=== PATIENT | male | born 1950 | race Caucasian/White ===

== ENCOUNTER 2023-08-15 10:05 | Outpatient (AMB) | payer MEDICARE, OTHER, SELFPAY ==
--- NOTE | 2023-08-15 10:06 | A.OFFPC_ITS ---
Vital Signs 08/15/23 10:07 Height 5 ft 7 in Weight 178 lb BMI 27.9 BP 120/68 Blood Pressure Location Lt brachial Position Sitting Pulse 76 Pulse Source Pulse Oximeter Pulse Oximetry (%) 97 Oxygen Delivery Method Room Air Intake Visit Reasons: Est care Intake Note: Pt here today for New patient visit. Pt states that he has been having R shoulder pain. Pt states that he has cortisone injection in that shoulder in the past. Allergies No Known Allergies Allergy (Verified 08/15/23 10:13) Medication List - Last Reconciled 08/15/23 by Batsheva Hamilton MD empagliflozin (Jardiance) 25 mg PO DAILY fluticasone propionate 50 mcg/actuation sprays intranasal glipizide 10 mg PO BID lisinopril 40 mg PO DAILY metformin 1,000 mg PO BID simvastatin 40 mg PO BEDTIME tirzepatide (Mounjaro) mg subcut Tobacco use date assessed: 08/15/23 Fall risk assessment: No Falls in past year Last assessed Fall Risk: 08/15/23 Dental Screening Dental Screen Date: 08/15/23 Did you have a dental visit in the last 12 months?: No Did you have a dental problem in the last 6 months where you did not have access to dental care?: No Was dental information given to patient?: Patient declined HPI Est care HPI Details Pt presents for [employer] visit transfer from [facility]. . PMH :DM 2, HTN, hyperlipid.Pt c/o R shoulder pain for 2 weeks, no injury, worse when using it, no weakness. PFSH Family History Father Diabetes Mother Diabetes Brother Diabetes Sister Diabetes Social History Housing: House Patient Tobacco Use Status: Former Tobacco user (50 years ago) e-Cigarette/Vaping Use: Never Used Current occupational status: retired Cognitive needs: No Hearing needs: No Vision needs: Yes Questionnaire PHQ-9 Over the last 2 weeks, how often have you been bothered by any of the following problems? 1. Little interest or pleasure in doing things: not at all 2. Feeling down, depressed, or hopeless: not at all 3. Trouble falling or staying asleep, or sleeping too much: not at all 4. Feeling tired or having little energy: not at all 5. Poor appetite or overeating: not at all 6. Feeling bad about yourself - or that you are a failure or have let yourself or your family down: not at all 7. Trouble concentrating on things, such as reading the newspaper or watching television: not at all 8. Moving or speaking so slowly that other people could have noticed. Or the opposite - being so fidgety or restless that you have been moving around a lot more than usual: not at all 9. Thoughts that you would be better off or of hurting yourself in some way: not at all Total score: 0 Depression Screening Interpretation: Negative Depression Screening Done: Yes Source: Developed by Drs. Júnior Xie, Sirena Pereyra, Omkar Howard and colleagues, with an educational celine from [employer]. Thrive Questionnaire Date Thrive assessed: 08/15/23 I am a: Patient What is your living situation today?: I have a steady place to live Within the past 12 months, did the food you bought not last and you didn't have the money to get more?: Never true Within the past 12 months, did you worry whether your food would run out before you got money to buy more?: Never true Do you have trouble paying for medicines?: No Do you have trouble getting transportation to medical appointments?: No Do you have trouble paying your heating and electricity bill?: No Do you have trouble taking care of your child, family member or friend?: No Do you have trouble with day-to-day activities such as bathing, preparing meals, shopping, managing finances, etc.?: No Are you currently unemployed and looking for a job?: No Are you interested in more education?: No Please select the resources that you would like help with: None Currently or been in a relationship where the following occur: no concerns reported ALLY-7 AMB Questionnaire ALLY-7 Date ALLY - 7 assessed: 08/15/23 Feeling nervous, anxious, or on edge: 0 = Not at all Not being able to stop or control worryin = Not at all Worrying too much about different things: 0 = Not at all Trouble relaxin = Not at all Being so restless that it is hard to sit still: 0 = Not at all Becoming easily annoyed or irritable: 0 = Not at all Feeling afraid as if something awful might happen: 0 = Not at all Total ALLY-7 score (0-4 normal; 5-9 mild; 10-14 moderate; 15-21 severe): 0 Source: Developed by Drs. Júnior Xie, Sirena Pereyra, Omkar Howard and colleagues, with an educational celine from [employer]. Review of Systems Const All systems reviewed & are unremarkable except as noted in HPI and below Reports no additional complaints Eyes Reports no additional complaints ENT Reports no additional complaints Card Reports no additional complaints Resp Reports no additional complaints GI Reports no additional complaints Reports no additional complaints Physical exam (Primary Care) Vital Signs: Last Vital Signs Pulse 76 08/15/23 10:07 BP 120/68 08/15/23 10:07 Pulse Ox 97 08/15/23 10:07 Oxygen Delivery Method Room Air 08/15/23 10:07 BMI result Body Mass Index 27.9 Tobacco/Smoking Status: Tobacco use Status Tobacco use date assessed 08/15/23 08/15/23 10:22 Patient Tobacco Use Status Former Tobacco user (50 08/15/23 10:22 years ago) e-Cigarette/Vaping Use Never Used 08/15/23 10:22 PHQ-9: PHQ-9 Score PHQ-9: Total score 0 08/15/23 10:22 Depression Screening Interpretation: Negative Thrive Assessment: Date of Thrive Assessment Date Thrive assessed 08/15/23 08/15/23 10:22 Currently or been in a relationship where the following occur: no concerns reported Const General: no acute distress HENMT Head: Yes normal to inspection Face and sinus: Yes normal facial exam Throat: Yes posterior oropharynx normal Neck Neck: Yes no lymphadenopathy and Yes supple Resp Effort & Inspection: normal respiratory effort Auscultation: clear to auscultation bilaterally Cardio Rhythm: regular rhythm Heart sounds: S1 normal heart sound present and S2 normal heart sound present GI Inspection: Yes normal to inspection Palpation (GI): Soft to palpation Extrem Other: DROM of R shoulder, anterior tenderness, Assessment and Plan Assessment & Plan (1) Shoulder pain, right: Code(s): M25.511 - Pain in right shoulder Plan: check XR, PT, Prednisone taper (2) Annual physical exam: Code(s): Z00.00 - Encounter for general adult medical examination without abnormal findings (3) DM type 2 (diabetes mellitus, type 2): Comment: > 10 years, f/u [facility] Code(s): E11.9 - Type 2 diabetes mellitus without complications Plan: check labs, obtain records, f/u 1 month (4) History of prostate surgery: Comment: >10 years Code(s): Z98.890 - Other specified postprocedural states (5) Hx of colonoscopy: Code(s): Z98.890 - Other specified postprocedural states (6) Hyperlipemia: Code(s): E78.5 - Hyperlipidemia, unspecified Plan: cont statin (7) HTN (hypertension): Code(s): I10 - Essential (primary) hypertension Plan: cont meds Orders: Orders Comprehensive [place]. Panel Fast Today E11.9 - Type 2 diabetes mellitus without complications, E78.5 - Hyperlipidemia, unspecified, I10 - Essential (primary) h ypertension, Z00.00 - Encounter for general adult medical examination without abnormal findings Complete Blood Count Auto Diff Today E11.9 - Type 2 diabetes mellitus without complications, E78.5 - Hyperlipidemia, unspecified, I10 - Essential (primary) hypertension, Z00.00 - Encounter for general adult medical examination without abnormal findings Microalbumin, Random (w Creat) Today E11.9 - Type 2 diabetes mellitus without complications, E78.5 - Hyperlipidemia, unspecified, I10 - Essential (primary) hypertension, Z00.00 - Encounter for general adult medical examination without abnormal findings PT Evaluation and Treatment Today M25.511 - Pain in right shoulder Hemoglobin A1c Today E11.9 - Type 2 diabetes mellitus without complications, E78.5 - Hyperlipidemia, unspecified, I10 - Essential (primary) hypertension, Z00.00 - Encounter for general adult medical examination without abnormal findings Lipid Panel Today E11.9 - Type 2 diabetes mellitus without complications, E78.5 - Hyperlipidemia, unspecified, I10 - Essential (primary) hypertension, Z00.00 - Encounter for general adult medical examination without abnormal findings PSA,Total (Free>4and<10) Today E11.9 - Type 2 diabetes mellitus without complications, E78.5 - Hyperlipidemia, unspecified, I10 - Essential (primary) hypertension, Z00.00 - Encounter for general adult medical examination without abnormal findings XR shoulder RT min 2V Today M25.511 - Pain in right shoulder Medications: New simvastatin 40 mg PO BEDTIME 90 tabs 3RF lisinopril 40 mg PO DAILY 90 tabs 3RF prednisone 4 TABL QD X 3 days, then 3 tabl qd x3 days, then 2 tabl qd x 3 days, then 1 tabl qd x3 days 10 mg PO DAILY 30 tabs 0RF Coding Level of Care Code New Pt Level 4 (36375) Diagnoses Shoulder pain, right M25.511 Annual physical exam Z00.00 DM type 2 (diabetes mellitus, type 2) E11.9 History of prostate surgery Z98.890 Hx of colonoscopy Z98.890 Hyperlipemia E78.5 HTN (hypertension) I10
[2023-08-15 10:07] VITALS: BP 120/68; PULSE 76; O2SAT 97; BMI 27.9
== END 2023-08-15 11:24 | disposition home or self-care (01) ==
LOC: HO.HMGC 10:05
PROVIDERS: PCP Internal Medicine; Visit Provider Internal Medicine
DX: M25.511 Pain in right shoulder (principal); Z00.00 Encounter for general adult medical examination without abnormal findings; E11.9 Type 2 diabetes mellitus without complications; Z98.890 Other specified postprocedural states; E78.5 Hyperlipidemia, unspecified; I10 Essential (primary) hypertension
CPT/HCPCS: 99204

== ENCOUNTER 2023-09-26 09:46 | Outpatient (REF) | payer MEDICARE, OTHER, SELFPAY ==
[2023-09-26 11:41] LABS: MANUAL DIFF FLAG NO
[2023-09-26 12:16] LABS: Estimated Average Glucose 246 mg/dL; Hemoglobin A1c % 10.2 % (<6.0)
[2023-09-26 12:35] LABS: Alanine Aminotransferase 18 U/L (0-40); Albumin Level 4.5 g/dL (3.5-5.0); Alkaline Phosphatase 68 U/L (39-117); Anion Gap 13 (12-20); Aspartate Amino Transferase 16 U/L (5-37); Bilirubin Total 0.8 mg/dL (0.0-1.0); Blood Urea Nitrogen 23 mg/dL (9-16); Calcium 10.1 mg/dL (8.4-10.2); Carbon Dioxide 25 mmol/L (22-29); Chloride 107 mmol/L (96-108); Cholesterol 204 mg/dL (<200); Estimated Glomerular Filt Rate > 60; Glucose Fasting 175 mg/dL (60-99); HDL Cholesterol 50 mg/dL (>40); LDL Cholesterol Calculated 96 mg/dL (<100); Potassium 4.2 mmol/L (3.3-5.1); Sodium 141 mmol/L (135-145); Total Protein 7.5 g/dL (6.5-8.0); Triglycerides 291 mg/dL (<150)
[2023-09-26 12:49] LABS: Basophils Absolute Auto 0.1 X10*3/uL (0.0-0.2); Basophils Percent Auto 1.4 % (0-2); Eosinophils Absolute Auto 0.3 X10*3/uL (0.0-0.4); Eosinophils Percent Auto 4.7 % (0-4); Hematocrit 45.7 % (42.0-52.0); Hemoglobin 15.1 g/dl (14.0-18.0); Imm Gran Abs Auto 0.04 X10*3/uL (0.00-0.03); Imm Gran Pct Auto 0.6 % (0.0-0.4); Lymphocytes Absolute Auto 2.6 X10*3/uL (1.2-4.9); Lymphocytes Percent Auto 39.4 % (20-40); Mean Corpuscular Hemoglobin 31.5 pg (27.0-33.0); Mean Corpuscular Volume 95.2 fL (80.0-98.0); Mean Platelet Volume 11.3 fL (9.4-12.4); Monocytes Absolute Auto 0.5 X10*3/uL (0.1-1.2); Monocytes Percent Auto 7.4 % (2-11); Neutrophils Absolute Auto 3.1 x10*3/uL (2.0-8.3); Neutrophils Percent Auto 46.5 % (45-73); Platelet Count 296 X10*3/uL (160-400); White Blood Count 6.6 X10*3/uL (4.8-10.8)
[2023-09-26 13:05] LABS: PSA,Total (Free>4and<10) 0.13 ng/mL (0.00-4.00)
[2023-09-26 16:14] LABS: Creatinine Urine 48.64 mg/dL; Microalbum/Creatinine Ratio Ur 12.3 ug/mg cr (<30)
== END 2023-09-26 09:47 | disposition home or self-care (01) ==
LOC: HO.HMGCLDS 09:46
PROVIDERS: PCP Internal Medicine; Visit Provider Internal Medicine
DX: Z00.00 Encounter for general adult medical examination without abnormal findings (principal); Z12.5 Encounter for screening for malignant neoplasm of prostate; E11.9 Type 2 diabetes mellitus without complications; E78.5 Hyperlipidemia, unspecified; I10 Essential (primary) hypertension
CPT/HCPCS: 36415; 80053; 80061; 82043; 82570; 83036; 84153; 85025

== ENCOUNTER 2023-09-27 12:36 | Outpatient (AMB) | payer MEDICARE, OTHER, SELFPAY ==
[2023-09-27 12:37] VITALS: BP 116/64; PULSE 78; O2SAT 98; BMI 28.2
--- NOTE | 2023-09-27 12:37 | A.OFFPC_ITS ---
Vital Signs 09/27/23 12:37 Height 5 ft 7 in Weight 180 lb BMI 28.2 BP 116/64 Blood Pressure Location Lt brachial Position Sitting Pulse 78 Pulse Source Pulse Oximeter Pulse Oximetry (%) 98 Oxygen Delivery Method Room Air Intake Visit Reasons: 1 month follow up on labs Intake Note: Pt is here today for 1 month follow up visit. Pt states that he still has pain in hie R shoulder. Allergies No Known Allergies Allergy (Verified 09/27/23 12:40) Medication List - Last Reconciled 09/27/23 by Batshvea Hamilton MD empagliflozin (Jardiance) 25 mg PO DAILY fluticasone propionate 50 mcg/actuation sprays intranasal glipizide 10 mg PO BID Lantus Solostar U-100 Insulin (insulin glargine) 10 units (0.1 mL) subcut QPM NS lisinopril 40 mg PO DAILY metformin 1,000 mg PO BID simvastatin 40 mg PO BEDTIME tirzepatide (Mounjaro) 10 mg (0.5 mL) subcut QWEEK Tobacco use date assessed: 09/27/23 Fall risk assessment: No Falls in past year Last assessed Fall Risk: 09/27/23 Dental Screening Dental Screen Date: 09/27/23 Did you have a dental visit in the last 12 months?: No Did you have a dental problem in the last 6 months where you did not have access to dental care?: No Was dental information given to patient?: Patient declined HPI 1 month follow up on labs HPI Details Patient presents for the follow-up of type 2 diabetes hypertension and hyperlipidemia. He reports blood glucose readings between 170 to 300s. [facility] Family History Father Diabetes Mother Diabetes Brother Diabetes Sister Diabetes Social History Housing: House Patient Tobacco Use Status: Former Tobacco user (50 years ago) e-Cigarette/Vaping Use: Never Used Current occupational status: retired Cognitive needs: No Hearing needs: No Vision needs: Yes Questionnaire PHQ-9 Over the last 2 weeks, how often have you been bothered by any of the following problems? 1. Little interest or pleasure in doing things: not at all 2. Feeling down, depressed, or hopeless: not at all 3. Trouble falling or staying asleep, or sleeping too much: not at all 4. Feeling tired or having little energy: not at all 5. Poor appetite or overeating: not at all 6. Feeling bad about yourself - or that you are a failure or have let yourself or your family down: not at all 7. Trouble concentrating on things, such as reading the newspaper or watching television: not at all 8. Moving or speaking so slowly that other people could have noticed. Or the opposite - being so fidgety or restless that you have been moving around a lot more than usual: not at all 9. Thoughts that you would be better off or of hurting yourself in some way: not at all Total score: 0 Depression Screening Interpretation: Negative Depression Screening Done: Yes Source: Developed by Drs. Júnior Xie, Sirena Pereyra, Omkar Howard and colleagues, with an educational celine from [employer]. Thrive Questionnaire Date Thrive assessed: 09/27/23 I am a: Patient What is your living situation today?: I have a steady place to live Within the past 12 months, did the food you bought not last and you didn't have the money to get more?: Never true Within the past 12 months, did you worry whether your food would run out before you got money to buy more?: Never true Do you have trouble paying for medicines?: No Do you have trouble getting transportation to medical appointments?: No Do you have trouble paying your heating and electricity bill?: No Do you have trouble taking care of your child, family member or friend?: No Do you have trouble with day-to-day activities such as bathing, preparing meals, shopping, managing finances, etc.?: No Are you currently unemployed and looking for a job?: No Are you interested in more education?: No Please select the resources that you would like help with: None Currently or been in a relationship where the following occur: no concerns reported THRIVE Score: 0 AUDIT C Alcohol Use Questionnaire (AUDIT-C) 1. How often do you have a drink containing alcohol?: Never 3. How often do you have six or more drinks on one occasion?: Never Total Score: 0 ALLY-7 AMB Questionnaire ALLY-7 Date ALLY - 7 assessed: 08/15/23 Source: Developed by Drs. Júnior Xie, Sirena Pereyra, Omkar Howard and colleagues, with an educational celine from [employer]. Review of Systems Const All systems reviewed & are unremarkable except as noted in HPI and below Reports no additional complaints Eyes Reports no additional complaints ENT Reports no additional complaints Card Reports no additional complaints Resp Reports no additional complaints GI Reports no additional complaints Reports no additional complaints Physical exam (Primary Care) Vital Signs: Last Vital Signs Pulse 78 09/27/23 12:37 BP 116/64 09/27/23 12:37 Pulse Ox 98 09/27/23 12:37 Oxygen Delivery Method Room Air 09/27/23 12:37 BMI result Body Mass Index 28.2 Tobacco/Smoking Status: Tobacco use Status Tobacco use date assessed 09/27/23 09/27/23 12:43 Patient Tobacco Use Status Former Tobacco user (50 09/27/23 12:43 years ago) e-Cigarette/Vaping Use Never Used 09/27/23 12:37 Depression Screening Interpretation: Negative Thrive Assessment: Date of Thrive Assessment Date Thrive assessed 08/15/23 09/27/23 12:37 Currently or been in a relationship where the following occur: no concerns reported Const General: no acute distress HENMT Head: Yes normal to inspection Face and sinus: Yes normal facial exam Eyes General: appearance normal, both eyes and all related structures Resp Effort & Inspection: normal respiratory effort Auscultation: clear to auscultation bilaterally Cardio Rhythm: regular rhythm Heart sounds: S1 normal heart sound present and S2 normal heart sound present GI Inspection: Yes normal to inspection Palpation (GI): Soft to palpation Assessment and Plan Assessment & Plan (1) DM type 2 (diabetes mellitus, type 2): Comment: > 10 years, f/u [facility] Code(s): E11.9 - Type 2 diabetes mellitus without complications Plan: A1C is 10.2, ADA diet increase physical activity discussed with the patient Lantus 10 units q.h.s. will be added and Mounjaro will be increased to 10 mg weekly. Patient will follow-up in 1 month with blood glucose readings for the adjustment of insulin dose (2) HTN (hypertension): Code(s): I10 - Essential (primary) hypertension Plan: cont meds (3) Hyperlipemia: Code(s): E78.5 - Hyperlipidemia, unspecified Plan: cont statin Medications: New BD Ultra-Fine Mini Pen Needle (pen needle, diabetic) 1 QD 100 ea 1RF NS tirzepatide (Mounjaro) 10 mg (0.5 mL) subcut QWEEK 6 mL 3RF Lantus Solostar U-100 Insulin (insulin glargine) 10 units (0.1 mL) subcut QPM 15 mL 0RF NS meloxicam 15 mg PO DAILY 10 tabs 0RF clonidine HCl 0.1 mg PO BID 180 tabs 0RF Coding Level of Care Code Est Pt Level 4 (54267) Diagnoses DM type 2 (diabetes mellitus, type 2) E11.9 HTN (hypertension) I10 Hyperlipemia E78.5
== END 2023-09-27 13:21 | disposition home or self-care (01) ==
PROVIDERS: PCP Internal Medicine; Visit Provider Internal Medicine
DX: E11.9 Type 2 diabetes mellitus without complications (principal); I10 Essential (primary) hypertension; E78.5 Hyperlipidemia, unspecified
CPT/HCPCS: 99214

== ENCOUNTER 2023-11-15 12:02 | Outpatient (AMB) | payer MEDICARE, OTHER, SELFPAY ==
[2023-11-15 12:30] VITALS: BP 120/72; PULSE 68; O2SAT 96; BMI 27.9
--- NOTE | 2023-11-15 12:30 | A.OFFPC_ITS ---
Vital Signs 11/15/23 12:30 Height 5 ft 7 in Weight 178 lb BMI 27.9 BP 120/72 Blood Pressure Location Lt brachial Position Sitting Pulse 68 Pulse Source Pulse Oximeter Pulse Oximetry (%) 96 Oxygen Delivery Method Room Air Intake Visit Reasons: 1 month follow up/PTS wanted this date Allergies No Known Allergies Allergy (Verified 11/15/23 12:31) Medication List - Last Reconciled 11/15/23 by Batsheva Hamilton MD BD Ultra-Fine Mini Pen Needle (pen needle, diabetic) 1 QD NS clonidine HCl 0.1 mg PO BID diabetic supplies, miscellan. DIABETIC SHOES empagliflozin (Jardiance) 25 mg PO DAILY fluticasone propionate 50 mcg/actuation sprays intranasal glipizide 10 mg PO BID Lantus Solostar U-100 Insulin (insulin glargine) 10 units (0.1 mL) subcut QPM NS lisinopril 40 mg PO DAILY metformin 1,000 mg PO BID simvastatin 40 mg PO BEDTIME tirzepatide (Mounjaro) 10 mg (0.5 mL) subcut QWEEK Tobacco use date assessed: 09/27/23 HPI 1 month follow up/PTS wanted this date HPI Details Patient presents for the follow-up of type 2 diabetes improved since patient started Lantus. He reports fasting blood glucose between 120-150 but high up to 200 after meals. Patient has not been compliant with ADA diet. Hypertension and hyperlipidemia stable on current medications. PATIENT COMPLAINS OF PERSISTENT RIGHT SHOULDER PAIN AND DECREASED RANGE OF MOTION DESPITE PHYSICAL THERAPY. PFSH Family History Father Diabetes Mother Diabetes Brother Diabetes Sister Diabetes Social History Housing: House Patient Tobacco Use Status: Former Tobacco user (50 years ago) e-Cigarette/Vaping Use: Never Used Current occupational status: retired Cognitive needs: No Hearing needs: No Vision needs: Yes Questionnaire Thrive Questionnaire Date Thrive assessed: 09/27/23 ALLY-7 AMB Questionnaire ALLY-7 Date ALLY - 7 assessed: 08/15/23 Source: Developed by Drs. Júnior Xie, Sirena Pereyra, Omkar Howard and colleagues, with an educational celine from [employer]. Review of Systems Const All systems reviewed & are unremarkable except as noted in HPI and below Reports no additional complaints Eyes Reports no additional complaints ENT Reports no additional complaints Card Reports no additional complaints Resp Reports no additional complaints GI Reports no additional complaints Reports no additional complaints Physical exam (Primary Care) Vital Signs: Last Vital Signs Pulse 68 11/15/23 12:30 BP 120/72 11/15/23 12:30 Pulse Ox 96 11/15/23 12:30 Oxygen Delivery Method Room Air 11/15/23 12:30 BMI result Body Mass Index 27.9 Tobacco/Smoking Status: Tobacco use Status Tobacco use date assessed 09/27/23 11/15/23 12:30 Patient Tobacco Use Status Former Tobacco user (50 11/15/23 12:30 years ago) e-Cigarette/Vaping Use Never Used 11/15/23 12:30 Thrive Assessment: Date of Thrive Assessment Date Thrive assessed 09/27/23 11/15/23 12:30 Const General: no acute distress HENMT Mouth: Normal oral and palatal mucosa present Neck Neck: Yes supple Resp Effort & Inspection: normal respiratory effort Auscultation: clear to auscultation bilaterally Cardio Rhythm: regular rhythm Heart sounds: S1 normal heart sound present and S2 normal heart sound present GI Inspection: Yes normal to inspection Palpation (GI): Soft to palpation Percussion: Yes normal to percussion Extrem Other: Significantly decreased range of motion right shoulder Assessment and Plan Assessment & Plan (1) Shoulder pain, right: Code(s): M25.511 - Pain in right shoulder Plan: For persistent severe pain and decreased range of motion right shoulder obtain x-ray and MRI to evaluate for rotator cuff tear. Patient will continue physical therapy (2) DM type 2 (diabetes mellitus, type 2): Comment: > 10 years, f/u [facility] Code(s): E11.9 - Type 2 diabetes mellitus without complications Plan: Increase insulin to 14 units continue the rest of the medications. ADA diet increase physical activity weight loss discussed with the patient follow-up in 1 month with a fasting labs before (3) Hyperlipemia: Code(s): E78.5 - Hyperlipidemia, unspecified Plan: Continue statin (4) HTN (hypertension): Code(s): I10 - Essential (primary) hypertension Plan: Continue current medications Orders: Orders Hemoglobin A1c 1 Month E11.9 - Type 2 diabetes mellitus without complications, E78.5 - Hyperlipidemia, unspecified, I10 - Essential (primary) hypertension Lipid Panel 1 Month E11.9 - Type 2 diabetes mellitus without complications, E78.5 - Hyperlipidemia, unspecified, I10 - Essential (primary) hypertension MR shoulder RT wo/w con Today M12.811 - Other specific arthropathies, not elsewhere classified, right shoulder XR shoulder RT min 2V Today M25.511 - Pain in right shoulder Comprehensive [place]. Panel Fast 1 Month E11.9 - Type 2 diabetes mellitus without complications, E78.5 - Hyperlipidemia, unspecified, I10 - Essential (primary) hypertension Microalbumin, Random (w Creat) 1 Month E11.9 - Type 2 diabetes mellitus without complications, E78.5 - Hyperlipidemia, unspecified, I10 - Essential (primary) hypertension Complete Blood Count Auto Diff 1 Month E11.9 - Type 2 diabetes mellitus without complications, E78.5 - Hyperlipidemia, unspecified, I10 - Essential (primary) hypertension Medications: New diabetic supplies, miscellan. DIABETIC SHOES 2 ea 0RF E11.9 - Type 2 diabetes mellitus without complications Changed From Lantus Solostar U-100 Insulin (insulin glargine) 10 units (0.1 mL) subcut QPM 15 mL 0RF NS To Lantus Solostar U-100 Insulin (insulin glargine) 14 units (0.14 mL) subcut QPM 15 mL 1RF NS Coding Level of Care Code Est Pt Level 4 (86859) Diagnoses Shoulder pain, right M25.511 DM type 2 (diabetes mellitus, type 2) E11.9 Hyperlipemia E78.5 HTN (hypertension) I10
== END 2023-11-15 14:01 | disposition home or self-care (01) ==
PROVIDERS: PCP Internal Medicine; Visit Provider Internal Medicine
DX: M25.511 Pain in right shoulder (principal); E11.9 Type 2 diabetes mellitus without complications; E78.5 Hyperlipidemia, unspecified; I10 Essential (primary) hypertension
CPT/HCPCS: 99214

== ENCOUNTER 2023-11-15 13:55 | Outpatient (REF) | payer MEDICARE, OTHER, SELFPAY ==
--- NOTE | ~2023-11-15 | XR_ITS ---
EXAMINATION: XR SHOULDER, RIGHT CLINICAL INFORMATION: Pain in right shoulder COMPARISON: None available. TECHNIQUE: AP external rotation, Grashey, scapular Y, and axillary views of the right shoulder. FINDINGS: There is a small bony defect in the greater tuberosity of the humeral head. No acute fracture. No dislocation. 2 surgical tacks are seen within the humeral head consistent with rotator cuff repair. There is mild degenerative change of the glenohumeral joint. The acromioclavicular joint is normal. Tiny calcific density seen superior to the humeral head. XR/XR shoulder RT min 2V IMPRESSION: 1. Mild degenerative change of the glenohumeral joint. 2. Tiny calcific density superior to the humeral head may represent calcific tendinitis. 3. Prior repair of rotator cuff tear.
== END 2023-11-15 13:56 | disposition home or self-care (01) ==
LOC: HO.HMGCX 13:55
PROVIDERS: PCP Internal Medicine; Visit Provider Internal Medicine
DX: M25.511 Pain in right shoulder (principal)
CPT/HCPCS: 73030

== ENCOUNTER 2023-12-19 09:55 | Outpatient (REF) | payer MEDICARE, OTHER, SELFPAY ==
[2023-12-19 13:37] LABS: MANUAL DIFF FLAG NO
[2023-12-19 13:48] LABS: Basophils Absolute Auto 0.1 X10*3/uL (0.0-0.2); Eosinophils Absolute Auto 0.3 X10*3/uL (0.0-0.4); Eosinophils Percent Auto 3.5 % (0-4); Hematocrit 44.8 % (42.0-52.0); Hemoglobin 14.8 g/dl (14.0-18.0); Imm Gran Abs Auto 0.04 X10*3/uL (0.00-0.03); Imm Gran Pct Auto 0.5 % (0.0-0.4); Lymphocytes Absolute Auto 3.1 X10*3/uL (1.2-4.9); Lymphocytes Percent Auto 39.6 % (20-40); Mean Corpuscular Hemoglobin 30.9 pg (27.0-33.0); Mean Corpuscular Volume 93.5 fL (80.0-98.0); Mean Platelet Volume 11.2 fL (9.4-12.4); Monocytes Absolute Auto 0.6 X10*3/uL (0.1-1.2); Monocytes Percent Auto 8.2 % (2-11); Neutrophils Absolute Auto 3.7 x10*3/uL (2.0-8.3); Neutrophils Percent Auto 47.2 % (45-73); Platelet Count 294 X10*3/uL (160-400); Red Blood Count 4.79 X10*6/uL (4.60-5.80); Red Cell Distribution Width 12.4 % (11.0-16.0); White Blood Count 7.8 X10*3/uL (4.8-10.8)
[2023-12-19 14:02] LABS: Estimated Average Glucose 189 mg/dL; Hemoglobin A1c % 8.2 % (<6.0)
[2023-12-19 14:06] LABS: Alanine Aminotransferase 14 U/L (0-40); Albumin Level 4.4 g/dL (3.5-5.0); Alkaline Phosphatase 76 U/L (39-117); Anion Gap 15 (12-20); Aspartate Amino Transferase 13 U/L (5-37); Blood Urea Nitrogen 21 mg/dL (9-16); Calcium 11.2 mg/dL (8.4-10.2); Carbon Dioxide 23 mmol/L (22-29); Chloride 106 mmol/L (96-108); Cholesterol 129 mg/dL (<200); Estimated Glomerular Filt Rate > 60; Glucose Fasting 162 mg/dL (60-99); HDL Cholesterol 42 mg/dL (>40); LDL Cholesterol Calculated 64 mg/dL (<100); Potassium 4.5 mmol/L (3.3-5.1); Sodium 139 mmol/L (135-145); Total Protein 7.5 g/dL (6.5-8.0); Triglycerides 117 mg/dL (<150)
[2023-12-19 14:23] LABS: Microalbum/Creatinine Ratio Ur 12.6 ug/mg cr (<30)
== END 2023-12-19 09:56 | disposition home or self-care (01) ==
LOC: HO.HMGCLDS 09:55
PROVIDERS: PCP Internal Medicine; Visit Provider Internal Medicine
DX: E11.9 Type 2 diabetes mellitus without complications (principal); I10 Essential (primary) hypertension; E78.5 Hyperlipidemia, unspecified
CPT/HCPCS: 36415; 80053; 80061; 82043; 82570; 83036; 85025

== ENCOUNTER 2023-12-23 10:04 | Outpatient (AMB) | payer MEDICARE, OTHER, SELFPAY ==
[2023-12-23 10:22] VITALS: BP 110/64; PULSE 85; O2SAT 96; BMI 28.0
--- NOTE | 2023-12-23 10:22 | MHC.PC.OV ---
Vital Signs 12/23/23 10:22 Height 5 ft 7 in Weight 179 lb BMI 28.0 BP 110/64 Blood Pressure Location Lt brachial Position Sitting Pulse 85 Pulse Source Pulse Oximeter Pulse Oximetry (%) 96 Oxygen Delivery Method Room Air Intake Visit Reasons: 1M F/U Intake Note: Pt is here today for his 1 mo. f/u Allergies No Known Allergies Allergy (Verified 12/23/23 10:22) Medication List - Last Reconciled 12/23/23 by Batsheva Hamilton MD BD Ultra-Fine Mini Pen Needle (pen needle, diabetic) 1 QD NS diabetic supplies, miscellan. DIABETIC SHOES empagliflozin (Jardiance) 25 mg PO DAILY fluticasone propionate 50 mcg/actuation sprays intranasal glipizide 10 mg PO BID Lantus Solostar U-100 Insulin (insulin glargine) 14 units (0.14 mL) subcut QPM NS lisinopril 40 mg PO DAILY metformin 1,000 mg PO BID simvastatin 40 mg PO BEDTIME tirzepatide (Mounjaro) 10 mg (0.5 mL) subcut QWEEK Tobacco use date assessed: 12/23/23 Fall risk assessment: No Falls in past year Last assessed Fall Risk: 12/23/23 Dental Screening Dental Screen Date: 12/23/23 Did you have a dental visit in the last 12 months?: No Was dental information given to patient?: Patient declined HPI 1M F/U HPI Details Patient presents for the follow-up of type 2 diabetes hyperlipidemia and hypertension. He reports improving fasting blood glucose down to 110 to 140 with occasionally increasing to over 200 after dinner when eating more carbohydrate rich foods. Patient has been physical therapy for chronic right shoulder pain with improving range of motion. He is waiting for the MRI to evaluate for chronic tendinopathy. [facility] Family History Father Diabetes Mother Diabetes Brother Diabetes Sister Diabetes Social History Housing: House Patient Tobacco Use Status: Former Tobacco user (50 years ago) e-Cigarette/Vaping Use: Never Used Current occupational status: retired Cognitive needs: No Hearing needs: No Vision needs: Yes Questionnaire Thrive Questionnaire Date Thrive assessed: 01/23/24 ALLY-7 AMB Questionnaire ALLY-7 Date ALLY - 7 assessed: 08/15/23 Source: Developed by DrsDevan Xie, Sirena Pereyra, Omkar Howard and colleagues, with an educational celine from [employer]. Review of Systems Const All systems reviewed & are unremarkable except as noted in HPI and below Eyes Reports no additional complaints ENT Reports no additional complaints Resp Reports no additional complaints GI Reports no additional complaints Reports no additional complaints Physical exam (Primary Care) Vital Signs: Last Vital Signs Pulse 85 12/23/23 10:22 BP 110/64 12/23/23 10:22 Pulse Ox 96 12/23/23 10:22 Oxygen Delivery Method Room Air 12/23/23 10:22 BMI result Body Mass Index 28.0 Tobacco/Smoking Status: Tobacco use Status Tobacco use date assessed 12/23/23 12/23/23 10:24 Patient Tobacco Use Status Former Tobacco user (52 12/23/23 10:22 years ago) e-Cigarette/Vaping Use Never Used 12/23/23 10:22 Thrive Assessment: Date of Thrive Assessment Date Thrive assessed 09/27/23 12/23/23 10:22 Const General: no acute distress HENMT Ears: hearing grossly normal bilaterally General nose exam: Normal external nose present Mouth: Normal oral and palatal mucosa present Throat: Yes posterior oropharynx normal Eyes General: appearance normal, both eyes and all related structures Neck Neck: Yes no lymphadenopathy and Yes supple Resp Effort & Inspection: normal respiratory effort Auscultation: clear to auscultation bilaterally Cardio Rhythm: regular rhythm Heart sounds: S1 normal heart sound present and S2 normal heart sound present GI Inspection: Yes normal to inspection Palpation (GI): Soft to palpation Percussion: Yes normal to percussion Auscultation: normal bowel sounds Assessment and Plan Assessment & Plan (1) Shoulder pain, right: Code(s): M25.511 - Pain in right shoulder Plan: Continue physical therapy awaiting MRI (2) DM type 2 (diabetes mellitus, type 2): Comment: > 10 years, f/u [facility] Code(s): E11.9 - Type 2 diabetes mellitus without complications Plan: A1c is down to 8.3, ADA diet regular physical activity discussed with the patient. He was advised to stop glipizide and continue to monitor his blood glucose if there is increase in the readings Lantus can be increased. Continue metformin Mounjaro and Jardiance. (3) HTN (hypertension): Code(s): I10 - Essential (primary) hypertension Plan: Continue lisinopril (4) Hyperlipemia: Code(s): E78.5 - Hyperlipidemia, unspecified Plan: Continue simvastatin Orders: Orders PT Evaluation and Treatment Today M25.511 - Pain in right shoulder Comprehensive [place]. Panel Fast 3 Months E11.9 - Type 2 diabetes mellitus without complications, E78.5 - Hyperlipidemia, unspecified, I10 - Essential (primary) hypertension Lipid Panel 3 Months E11.9 - Type 2 diabetes mellitus without complications, E78.5 - Hyperlipidemia, unspecified, I10 - Essential (primary) hypertension Hemoglobin A1c 3 Months E11.9 - Type 2 diabetes mellitus without complications, E78.5 - Hyperlipidemia, unspecified, I10 - Essential (primary) hypertension Complete Blood Count Auto Diff 3 Months E11.9 - Type 2 diabetes mellitus without complications, E78.5 - Hyperlipidemia, unspecified, I10 - Essential (primary) hypertension Microalbumin, Random (w Creat) 3 Months E11.9 - Type 2 diabetes mellitus without complications, E78.5 - Hyperlipidemia, unspecified, I10 - Essential (primary) hypertension Medications: Refilled diabetic supplies, miscellan. DIABETIC SHOES 2 ea 0RF E11.9 - Type 2 diabetes mellitus without complications Coding Level of Care Code Est Pt Level 4 (97058) Diagnoses Shoulder pain, right M25.511 DM type 2 (diabetes mellitus, type 2) E11.9 HTN (hypertension) I10 Hyperlipemia E78.5
== END 2023-12-23 10:57 | disposition home or self-care (01) ==
LOC: HO.HMGC 10:04
PROVIDERS: PCP Internal Medicine; Visit Provider Internal Medicine
DX: M25.511 Pain in right shoulder (principal); E11.9 Type 2 diabetes mellitus without complications; I10 Essential (primary) hypertension; E78.5 Hyperlipidemia, unspecified
CPT/HCPCS: 99214

== ENCOUNTER 2024-03-06 08:53 | Outpatient (REF) | payer MEDICARE, OTHER, SELFPAY ==
[2024-03-06 10:46] LABS: MANUAL DIFF FLAG NO
[2024-03-06 11:24] LABS: Basophils Absolute Auto 0.1 X10*3/uL (0.0-0.2); Basophils Percent Auto 1.5 % (0-2); Eosinophils Absolute Auto 0.5 X10*3/uL (0.0-0.4); Eosinophils Percent Auto 7.1 % (0-4); Hematocrit 44.5 % (42.0-52.0); Hemoglobin 14.9 g/dl (14.0-18.0); Imm Gran Abs Auto 0.03 X10*3/uL (0.00-0.03); Imm Gran Pct Auto 0.4 % (0.0-0.4); Lymphocytes Absolute Auto 2.9 X10*3/uL (1.2-4.9); Lymphocytes Percent Auto 38.8 % (20-40); Mean Corpuscular HGB Conc 33.5 g/dl (31.0-36.0); Mean Corpuscular Volume 92.7 fL (80.0-98.0); Mean Platelet Volume 11.1 fL (9.4-12.4); Monocytes Absolute Auto 0.7 X10*3/uL (0.1-1.2); Monocytes Percent Auto 9.6 % (2-11); Neutrophils Absolute Auto 3.2 x10*3/uL (2.0-8.3); Neutrophils Percent Auto 42.6 % (45-73); Platelet Count 268 X10*3/uL (160-400); Red Cell Distribution Width 13.1 % (11.0-16.0); White Blood Count 7.4 X10*3/uL (4.8-10.8)
[2024-03-06 11:51] LABS: Alanine Aminotransferase 15 U/L (0-40); Albumin Level 4.4 g/dL (3.5-5.0); Alkaline Phosphatase 65 U/L (39-117); Anion Gap 13 (12-20); Aspartate Amino Transferase 15 U/L (5-37); Bilirubin Total 0.9 mg/dL (0.0-1.0); Blood Urea Nitrogen 21 mg/dL (9-16); Calcium 10.6 mg/dL (8.4-10.2); Carbon Dioxide 24 mmol/L (22-29); Chloride 106 mmol/L (96-108); Cholesterol 129 mg/dL (<200); Estimated Average Glucose 192 mg/dL; Estimated Glomerular Filt Rate > 60; Glucose Fasting 114 mg/dL (60-99); HDL Cholesterol 40 mg/dL (>40); Hemoglobin A1c % 8.3 % (<6.0); LDL Cholesterol Calculated 58 mg/dL (<100); Potassium 4.8 mmol/L (3.3-5.1); Sodium 138 mmol/L (135-145); Total Protein 7.1 g/dL (6.5-8.0); Triglycerides 158 mg/dL (<150)
[2024-03-06 12:12] LABS: Creatinine Urine 47.86 mg/dL; Microalbum/Creatinine Ratio Ur 12.5 ug/mg cr (<30)
== END 2024-03-06 08:54 | disposition home or self-care (01) ==
LOC: HO.HMGCLDS 08:53
PROVIDERS: PCP Internal Medicine; Visit Provider Internal Medicine
DX: E11.9 Type 2 diabetes mellitus without complications (principal); I10 Essential (primary) hypertension; E78.5 Hyperlipidemia, unspecified
CPT/HCPCS: 36415; 80053; 80061; 82043; 82570; 83036; 85025

== ENCOUNTER 2024-03-12 10:57 | Outpatient (AMB) | payer MEDICARE, OTHER, SELFPAY ==
--- NOTE | 2024-03-12 11:01 | MHC.PC.OV ---
Vital Signs 03/12/24 11:02 Height 5 ft 7 in Weight 185 lb BMI 29.0 BP 116/64 Blood Pressure Location Lt brachial Position Sitting Pulse 84 Pulse Source Pulse Oximeter Pulse Oximetry (%) 96 Oxygen Delivery Method Room Air Intake Visit Reasons: 3M F/U Intake Note: pt here for 3 mo f/u. A1c 8.3% 03/06/24 Allergies No Known Allergies Allergy (Verified 03/12/24 11:03) Medication List - Last Reconciled 03/12/24 by Batsheva Hamilton MD BD Ultra-Fine Mini Pen Needle (pen needle, diabetic) 1 QD NS diabetic supplies, miscellan. DIABETIC SHOES empagliflozin (Jardiance) 25 mg PO DAILY fluticasone propionate 50 mcg/actuation sprays intranasal Lantus Solostar U-100 Insulin (insulin glargine) 20 units (0.2 mL) subcut QPM NS lisinopril 40 mg PO DAILY metformin 1,000 mg PO BID Mounjaro (tirzepatide) 12.5 mg (0.5 mL) subcut QWEEK NS simvastatin 40 mg PO BEDTIME tirzepatide (Mounjaro) 10 mg (0.5 mL) subcut QWEEK Tobacco use date assessed: 03/12/24 Dental Screening Dental Screen Date: 03/12/24 Did you have a dental visit in the last 12 months?: Yes Did you have a dental problem in the last 6 months where you did not have access to dental care?: No Was dental information given to patient?: Patient has dentist HPI 3M F/U HPI Details Patient presents for the follow-up of type 2 diabetes hypertension and hyperlipidemia. Patient reports fluctuating blood glucose up to 200s fasting in the morning. PENDING SALE TO [facility] Family History Father Diabetes Mother Diabetes Brother Diabetes Sister Diabetes Social History Housing: House Patient Tobacco Use Status: Former Tobacco user (50 years ago) e-Cigarette/Vaping Use: Never Used Current occupational status: retired Cognitive needs: No Hearing needs: No Vision needs: Yes Questionnaire Thrive Questionnaire Date Thrive assessed: 09/27/23 AUDIT C Alcohol Use Questionnaire (AUDIT-C) 1. How often do you have a drink containing alcohol?: Never 3. How often do you have six or more drinks on one occasion?: Never Total Score: 0 ALLY-7 AMB Questionnaire ALLY-7 Date ALLY - 7 assessed: 08/15/23 Source: Developed by Drs. Júnior Xie, Sriena Pereyra, Omkar Howard and colleagues, with an educational celine from [employer]. Review of Systems Const All systems reviewed & are unremarkable except as noted in HPI and below Eyes Reports no additional complaints Card Reports no additional complaints Resp Reports no additional complaints GI Reports no additional complaints Reports no additional complaints Physical exam (Primary Care) Vital Signs: Last Vital Signs Pulse 84 03/12/24 11:02 BP 116/64 03/12/24 11:02 Pulse Ox 96 03/12/24 11:02 Oxygen Delivery Method Room Air 03/12/24 11:02 BMI result Body Mass Index 29.0 Tobacco/Smoking Status: Tobacco use Status Tobacco use date assessed 03/12/24 03/12/24 11:07 Patient Tobacco Use Status Former Tobacco user (52 03/12/24 11:02 years ago) e-Cigarette/Vaping Use Never Used 03/12/24 11:02 Thrive Assessment: Date of Thrive Assessment Date Thrive assessed 09/27/23 03/12/24 11:02 Const General: no acute distress HENMT Head: Yes normal to inspection Eyes General: appearance normal, both eyes and all related structures Neck Neck: Yes supple Resp Effort & Inspection: normal respiratory effort Auscultation: clear to auscultation bilaterally Cardio Rhythm: regular rhythm Heart sounds: S1 normal heart sound present and S2 normal heart sound present GI Inspection: Yes normal to inspection Palpation (GI): Soft to palpation Assessment and Plan Assessment & Plan (1) Hyperlipemia: Code(s): E78.5 - Hyperlipidemia, unspecified Plan: Continue statin (2) HTN (hypertension): Code(s): I10 - Essential (primary) hypertension Plan: Continue lisinopril (3) DM type 2 (diabetes mellitus, type 2): Comment: > 10 years, f/u [facility] Code(s): E11.9 - Type 2 diabetes mellitus without complications Plan: A1c is 8.4, ADA diet increase exercise discussed with the patient. Lantus will be increased from 16 units to 20 and Mounjaro from 10 mg to 12.5 mg. Patient will check with the insurance coverage for 25 mg of Jardiance. Follow-up in 3 months with a fasting labs before Orders: Orders Hemoglobin A1c 3 Months E11.9 - Type 2 diabetes mellitus without complications, E78.5 - Hyperlipidemia, unspecified, I10 - Essential (primary) hypertension Comprehensive [place]. Panel Fast 3 Months E11.9 - Type 2 diabetes mellitus without complications, E78.5 - Hyperlipidemia, unspecified, I10 - Essential (primary) hypertension Lipid Panel 3 Months E11.9 - Type 2 diabetes mellitus without complications, E78.5 - Hyperlipidemia, unspecified, I10 - Essential (primary) hypertension Complete Blood Count Auto Diff 3 Months E11.9 - Type 2 diabetes mellitus without complications, E78.5 - Hyperlipidemia, unspecified, I10 - Essential (primary) hypertension Medications: New Mounjaro (tirzepatide) 12.5 mg (0.5 mL) subcut QWEEK 6 mL 3RF NS Changed From Lantus Solostar U-100 Insulin (insulin glargine) 14 units (0.14 mL) subcut QPM 15 mL 1RF NS To Lantus Solostar U-100 Insulin (insulin glargine) 20 units (0.2 mL) subcut QPM 15 mL 1RF NS From empagliflozin (Jardiance) 25 mg PO DAILY To Jardiance (empagliflozin) 25 mg PO DAILY 90 tabs 0RF NS Discontinued tirzepatide (Mounjaro) Discontinued Reason: Doctor's Order 10 mg (0.5 mL) subcut QWEEK 6 mL 3RF Coding Level of Care Code Est Pt Level 4 (37250) Diagnoses Hyperlipemia E78.5 HTN (hypertension) I10 DM type 2 (diabetes mellitus, type 2) E11.9
[2024-03-12 11:02] VITALS: BP 116/64; PULSE 84; O2SAT 96; BMI 29.0
== END 2024-03-12 11:31 | disposition home or self-care (01) ==
LOC: HO.HMGC 10:57
PROVIDERS: PCP Internal Medicine; Visit Provider Internal Medicine
DX: E78.5 Hyperlipidemia, unspecified (principal); I10 Essential (primary) hypertension; E11.9 Type 2 diabetes mellitus without complications
CPT/HCPCS: 99214

== ENCOUNTER 2024-05-28 12:54 | Outpatient (REF) | payer MEDICARE, OTHER, SELFPAY ==
--- NOTE | ~2024-05-28 | MR_ITS ---
EXAMINATION: MR SHOULDER WITHOUT CONTRAST, RIGHT CLINICAL INFORMATION: Pain in the right shoulder, patient reports prior surgery 20 years prior. X-rays of the right shoulder November 2023. COMPARISON: None available. TECHNIQUE: MRI of the shoulder without contrast was performed on a high-field scanner. FINDINGS: ROTATOR CUFF: Supraspinatus: Postoperative changes related to prior rotator cuff surgery with some localized metallic artifact in the greater tuberosity related to suture anchor placement minimally obscuring the area of the tendon insertion. There is mild heterogeneity and attenuation throughout the tendon. There is also some minimal fluid present at the musculotendinous junction. Findings likely reflect a combination of postsurgical result and scattered areas of partial tearing but no clearly measurable defect or tendon retraction. Remaining muscles and tendons normal. BICEPS: Normal. CORACOACROMIAL ARCH: The undersurface of the acromion is flat. No subacromial spur. 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 Increased fluid in the subacromial subdeltoid bursa compatible with a mild bursitis. LABRUM/CAPSULE: Normal. GLENOHUMERAL JOINT/MARROW: Normal. MR/MR shoulder RT wo con IMPRESSION: 1. Postoperative changes related to prior rotator cuff surgery. 2. Mild abnormality of the supraspinatus likely reflecting a combination of postsurgical result and scattered areas of partial tearing but no clearly measurable defect or tendon retraction. 3. 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 4. Mild subacromial subdeltoid bursitis. Electronically signed by: Eusebio Dent MD 05/28/2024 03:35 PM EDT
== END 2024-05-28 12:55 | disposition home or self-care (01) ==
LOC: HO.MRI 12:54
PROVIDERS: PCP Internal Medicine; Visit Provider Internal Medicine
DX: M25.511 Pain in right shoulder (principal); M12.811 Other specific arthropathies, not elsewhere classified, right shoulder
CPT/HCPCS: 73221

== ENCOUNTER 2024-06-01 08:41 | Outpatient (REF) | payer MEDICARE, OTHER, SELFPAY ==
[2024-06-01 10:07] LABS: MANUAL DIFF FLAG NO
[2024-06-01 10:12] LABS: Basophils Absolute Auto 0.1 X10*3/uL (0.0-0.2); Basophils Percent Auto 1.2 % (0-2); Eosinophils Absolute Auto 0.4 X10*3/uL (0.0-0.4); Eosinophils Percent Auto 5.1 % (0-4); Hematocrit 46.3 % (42.0-52.0); Hemoglobin 15.5 g/dl (14.0-18.0); Imm Gran Abs Auto 0.04 X10*3/uL (0.00-0.03); Imm Gran Pct Auto 0.5 % (0.0-0.4); Lymphocytes Absolute Auto 2.9 X10*3/uL (1.2-4.9); Lymphocytes Percent Auto 39.5 % (20-40); Mean Corpuscular HGB Conc 33.5 g/dl (31.0-36.0); Mean Corpuscular Hemoglobin 31.2 pg (27.0-33.0); Mean Corpuscular Volume 93.2 fL (80.0-98.0); Mean Platelet Volume 10.9 fL (9.4-12.4); Monocytes Absolute Auto 0.6 X10*3/uL (0.1-1.2); Monocytes Percent Auto 8.5 % (2-11); Neutrophils Absolute Auto 3.3 x10*3/uL (2.0-8.3); Neutrophils Percent Auto 45.2 % (45-73); Platelet Count 285 X10*3/uL (160-400); Red Blood Count 4.97 X10*6/uL (4.60-5.80); Red Cell Distribution Width 12.9 % (11.0-16.0); White Blood Count 7.3 X10*3/uL (4.8-10.8)
[2024-06-01 10:31] LABS: Alanine Aminotransferase 18 U/L (0-40); Albumin Level 4.6 g/dL (3.5-5.0); Alkaline Phosphatase 60 U/L (39-117); Anion Gap 11 (12-20); Aspartate Amino Transferase 16 U/L (5-37); Bilirubin Total 0.8 mg/dL (0.0-1.0); Blood Urea Nitrogen 19 mg/dL (9-16); Calcium 10.3 mg/dL (8.4-10.2); Carbon Dioxide 27 mmol/L (22-29); Chloride 108 mmol/L (96-108); Cholesterol 138 mg/dL (<200); Estimated Glomerular Filt Rate > 60; Glucose Fasting 117 mg/dL (60-99); HDL Cholesterol 40 mg/dL (>40); LDL Cholesterol Calculated 72 mg/dL (<100); Potassium 4.2 mmol/L (3.3-5.1); Sodium 142 mmol/L (135-145); Total Protein 7.4 g/dL (6.5-8.0); Triglycerides 134 mg/dL (<150)
[2024-06-01 10:33] LABS: Estimated Average Glucose 174 mg/dL; Hemoglobin A1c % 7.7 % (<6.0)
== END 2024-06-01 08:42 | disposition home or self-care (01) ==
LOC: HO.HMGCLDS 08:41
PROVIDERS: PCP Internal Medicine; Visit Provider Internal Medicine
DX: E78.5 Hyperlipidemia, unspecified (principal); I10 Essential (primary) hypertension; E11.9 Type 2 diabetes mellitus without complications
CPT/HCPCS: 36415; 80053; 80061; 83036; 85025

== ENCOUNTER 2024-06-06 10:47 | Outpatient (AMB) | payer MEDICARE, OTHER, SELFPAY ==
--- NOTE | 2024-06-06 10:45 | A.OFFPC_ITS ---
Vital Signs 06/06/24 10:48 Height 5 ft 7 in Weight 179 lb BMI 28.0 BP 96/56 L Blood Pressure Location Rt brachial Position Sitting Pulse 78 Pulse Source Pulse Oximeter Pulse Oximetry (%) 95 Oxygen Delivery Method Room Air Intake Visit Reasons: 3M F/U Intake Note: Pt is here today for 3 months follow up visit. Allergies No Known Allergies Allergy (Verified 06/06/24 10:51) Medication List - Last Reconciled 06/06/24 by Batsheva Hamilton MD BD Ultra-Fine Mini Pen Needle (pen needle, diabetic) 1 QD NS diabetic supplies, miscellan. DIABETIC SHOES fluticasone propionate 50 mcg/actuation sprays intranasal Jardiance (empagliflozin) 25 mg PO DAILY NS Lantus Solostar U-100 Insulin (insulin glargine) 20 units (0.2 mL) subcut QPM NS lisinopril 40 mg PO DAILY metformin 1,000 mg PO BID Ozempic (semaglutide) 2 mg (0.75 mL) subcut QWEEK NS simvastatin 40 mg PO BEDTIME Tobacco use date assessed: 03/12/24 Fall risk assessment: No Falls in past year Last assessed Fall Risk: 06/06/24 Dental Screening Dental Screen Date: 03/12/24 HPI 3M F/U HPI Details Patient presents for the follow-up of type 2 diabetes hypertension hyperlipidemia. he reports improved fasting blood glucose between 100-140. Patient has been using Julio Cesar sensor and reader but forgot to bring it in today PFSH Family History Father Diabetes Mother Diabetes Brother Diabetes Sister Diabetes Social History Housing: House Patient Tobacco Use Status: Former Tobacco user (50 years ago) e-Cigarette/Vaping Use: Never Used service: No Current occupational status: retired Cognitive needs: No Hearing needs: No Vision needs: Yes Questionnaire Thrive Questionnaire Date Thrive assessed: 09/27/23 ALLY-7 AMB Questionnaire ALLY-7 Date ALLY - 7 assessed: 08/15/23 Source: Developed by Drs. Júnior Xie, Sirena Pereyra, Omkar Howard and colleagues, with an educational celine from [employer] Review of Systems Const All systems reviewed & are unremarkable except as noted in HPI and below Eyes Reports no additional complaints Card Reports no additional complaints Resp Reports no additional complaints GI Reports no additional complaints Physical exam (Primary Care) Vital Signs: Last Vital Signs Pulse 78 06/06/24 10:48 BP 96/56 L 06/06/24 10:48 Pulse Ox 95 06/06/24 10:48 Oxygen Delivery Method Room Air 06/06/24 10:48 BMI result Body Mass Index 28.0 Tobacco/Smoking Status: Tobacco use Status Tobacco use date assessed 03/12/24 06/06/24 10:45 Patient Tobacco Use Status Former Tobacco user (52 06/06/24 10:45 years ago) e-Cigarette/Vaping Use Never Used 06/06/24 10:45 Thrive Assessment: Date of Thrive Assessment Date Thrive assessed 09/27/23 06/06/24 10:45 Const General: no acute distress HENMT Head: Yes normal to inspection Eyes General: appearance normal, both eyes and all related structures Neck Neck: Yes supple Resp Effort & Inspection: normal respiratory effort Auscultation: clear to auscultation bilaterally Cardio Rhythm: regular rhythm Heart sounds: S1 normal heart sound present and S2 normal heart sound present GI Inspection: Yes normal to inspection Palpation (GI): Soft to palpation Coding Level of Care Code Est Pt Level 4 (95652) Diagnoses HTN (hypertension) I10 Hyperlipemia E78.5 DM type 2 (diabetes mellitus, type 2) E11.9 Assessment & Plan Assessment & Plan (1) HTN (hypertension): Code(s): I10 - Essential (primary) hypertension Category: Medical Plan: Continue lisinopril (2) Hyperlipemia: Code(s): E78.5 - Hyperlipidemia, unspecified Category: Medical Plan: Continue statin (3) DM type 2 (diabetes mellitus, type 2): Comment: > 10 years, f/u [facility] Code(s): E11.9 - Type 2 diabetes mellitus without complications Category: Medical Plan: A1c is down to 7.7, ADA diet increase exercise weight loss discussed with the patient continue current medications follow-up in 3 months with a fasting labs before Orders: Orders Hemoglobin A1c 3 Months E11.9 - Type 2 diabetes mellitus without complications, E78.5 - Hyperlipidemia, unspecified, I10 - Essential (primary) hypertension Comprehensive [place]. Panel Fast 3 Months E11.9 - Type 2 diabetes mellitus without complications, E78.5 - Hyperlipidemia, unspecified, I10 - Essential (primary) hypertension Complete Blood Count Auto Diff 3 Months E11.9 - Type 2 diabetes mellitus without complications, E78.5 - Hyperlipidemia, unspecified, I10 - Essential (primary) hypertension PSA,Total (Free>4and<10) 3 Months E11.9 - Type 2 diabetes mellitus without complications, E78.5 - Hyperlipidemia, unspecified, I10 - Essential (primary) hypertension Lipid Panel 3 Months E11.9 - Type 2 diabetes mellitus without complications, E78.5 - Hyperlipidemia, unspecified, I10 - Essential (primary) hypertension Microalbumin, Random (w Creat) 3 Months E11.9 - Type 2 diabetes mellitus without complications, E78.5 - Hyperlipidemia, unspecified, I10 - Essential (primary) hypertension
[2024-06-06 10:48] VITALS: BP 96/56; PULSE 78; O2SAT 95; BMI 28.0
== END 2024-06-06 12:05 | disposition home or self-care (01) ==
PROVIDERS: PCP Internal Medicine; Visit Provider Internal Medicine
DX: I10 Essential (primary) hypertension (principal); E78.5 Hyperlipidemia, unspecified; E11.9 Type 2 diabetes mellitus without complications

== ENCOUNTER → 2024-06-06 10:47 | Outpatient (BNVA) | payer MEDICARE, OTHER, SELFPAY | PROVIDERS: PCP Internal Medicine; Visit Provider Internal Medicine | DX: I10 Essential (primary) hypertension (principal); E78.5 Hyperlipidemia, unspecified; E11.9 Type 2 diabetes mellitus without complications | CPT/HCPCS: 99212 ==

== ENCOUNTER 2024-10-05 09:27 | Outpatient (REF) | payer MEDICARE, OTHER, SELFPAY ==
[2024-10-05 13:25] LABS: MANUAL DIFF FLAG NO
[2024-10-05 13:47] LABS: Basophils Absolute Auto 0.1 X10*3/uL (0.0-0.2); Basophils Percent Auto 1.3 % (0-2); Eosinophils Absolute Auto 0.4 X10*3/uL (0.0-0.4); Eosinophils Percent Auto 5.1 % (0-4); Hematocrit 45.7 % (42.0-52.0); Hemoglobin 15.2 g/dl (14.0-18.0); Imm Gran Abs Auto 0.03 X10*3/uL (0.00-0.03); Imm Gran Pct Auto 0.4 % (0.0-0.4); Lymphocytes Absolute Auto 3.3 X10*3/uL (1.2-4.9); Lymphocytes Percent Auto 41.6 % (20-40); Mean Corpuscular HGB Conc 33.3 g/dl (31.0-36.0); Mean Corpuscular Volume 93.1 fL (80.0-98.0); Mean Platelet Volume 11.1 fL (9.4-12.4); Monocytes Absolute Auto 0.7 X10*3/uL (0.1-1.2); Monocytes Percent Auto 8.5 % (2-11); Neutrophils Absolute Auto 3.4 x10*3/uL (2.0-8.3); Neutrophils Percent Auto 43.1 % (45-73); Platelet Count 306 X10*3/uL (160-400); Red Blood Count 4.91 X10*6/uL (4.60-5.80); Red Cell Distribution Width 12.9 % (11.0-16.0); White Blood Count 7.8 X10*3/uL (4.8-10.8)
[2024-10-05 14:02] LABS: Alanine Aminotransferase 19 U/L (0-40); Albumin Level 4.5 g/dL (3.5-5.0); Alkaline Phosphatase 63 U/L (39-117); Anion Gap 12 (12-20); Aspartate Amino Transferase 22 U/L (5-37); Bilirubin Total 1.3 mg/dL (0.0-1.0); Blood Urea Nitrogen 20 mg/dL (9-16); Calcium 10.7 mg/dL (8.4-10.2); Carbon Dioxide 26 mmol/L (22-29); Chloride 106 mmol/L (96-108); Cholesterol 143 mg/dL (<200); Estimated Glomerular Filt Rate > 60; Glucose Fasting 135 mg/dL (60-99); HDL Cholesterol 39 mg/dL (>40); LDL Cholesterol Calculated 70 mg/dL (<100); Potassium 4.3 mmol/L (3.3-5.1); Sodium 140 mmol/L (135-145); Total Protein 7.7 g/dL (6.5-8.0); Triglycerides 170 mg/dL (<150)
[2024-10-05 14:25] LABS: PSA,Total (Free>4and<10) 0.13 ng/mL (0.00-4.00)
[2024-10-05 14:30] LABS: Estimated Average Glucose 200 mg/dL; Hemoglobin A1C 275.1923 umol/L; Hemoglobin A1c % 8.6 % (<6.0); Total Hemoglobin (HGBA1C) 3926.0214 umol/L
[2024-10-05 14:36] LABS: Creatinine Urine 68.16 mg/dL; Microalbum/Creatinine Ratio Ur 8.8 ug/mg cr (<30)
== END 2024-10-05 09:28 | disposition home or self-care (01) ==
LOC: HO.HMGCLDS 09:27
PROVIDERS: PCP Internal Medicine; Visit Provider Internal Medicine
DX: I10 Essential (primary) hypertension (principal); E78.5 Hyperlipidemia, unspecified; E11.9 Type 2 diabetes mellitus without complications; Z12.5 Encounter for screening for malignant neoplasm of prostate
CPT/HCPCS: 36415; 80053; 80061; 82043; 82570; 83036; 84153; 85025

== ENCOUNTER 2024-10-10 11:59 | Outpatient (AMB) | payer MEDICARE, OTHER, SELFPAY ==
[2024-10-10 12:11] VITALS: BP 118/58; PULSE 85; RESP 16; TEMP 36.6; O2SAT 96; BMI 28.2
--- NOTE | 2024-10-10 12:11 | MHC.PC.OV ---
Vital Signs 10/10/24 12:11 Height 5 ft 7 in Weight 180 lb 2 oz BMI 28.2 BP 118/58 L Blood Pressure Location Rt brachial Position Sitting Respiration 16 Pulse 85 Pulse Source Pulse Oximeter Temp 98 F Temp Source Oral Pulse Oximetry (%) 96 Oxygen Delivery Method Room Air Intake Visit Reasons: PE Intake Note: Patient is here today for his annual physical. Allergies No Known Allergies Allergy (Verified 10/10/24 12:13) Medication List - Last Reconciled 10/10/24 by Batsheva Hamilton MD BD Ultra-Fine Mini Pen Needle (pen needle, diabetic) 1 QD NS diabetic supplies, miscellan. DIABETIC SHOES fluticasone propionate 50 mcg/actuation sprays intranasal Jardiance (empagliflozin) 25 mg PO DAILY NS Lantus Solostar U-100 Insulin (insulin glargine) 20 units (0.2 mL) subcut QPM NS lisinopril 40 mg PO DAILY metformin 1,000 mg PO BID Ozempic (semaglutide) 2 mg (0.75 mL) subcut QWEEK NS simvastatin 40 mg PO BEDTIME Tobacco use date assessed: 10/10/24 Fall risk assessment: No Falls in past year Last assessed Fall Risk: 10/10/24 Dental Screening Dental Screen Date: 10/10/24 Did you have a dental visit in the last 12 months?: No Did you have a dental problem in the last 6 months where you did not have access to dental care?: No Was dental information given to patient?: No HPI PE HPI Details Patient presents for physical PFSH Family History Father Diabetes Mother Diabetes Brother Diabetes Sister Diabetes Social History Housing: House Patient Tobacco Use Status: Former Tobacco user (50 years ago) e-Cigarette/Vaping Use: Never Used service: No Current occupational status: retired Cognitive needs: No Hearing needs: No Vision needs: Yes Questionnaire Thrive Questionnaire Date Thrive assessed: 10/10/24 AUDIT C Alcohol Use Questionnaire (AUDIT-C) 1. How often do you have a drink containing alcohol?: Never 3. How often do you have six or more drinks on one occasion?: Never Total Score: 0 Score Reviewed/Action Taken: Yes ALLY-7 AMB Questionnaire ALLY-7 Date ALLY - 7 assessed: 08/15/23 Source: Developed by Drs. Júnior Xie, Sirena Pereyra, Omkar Howard and colleagues, with an educational celine from [employer]. Review of Systems Const All systems reviewed & are unremarkable except as noted in HPI and below Reports no additional complaints Eyes Reports no additional complaints ENT Reports no additional complaints Card Reports no additional complaints Resp Reports no additional complaints GI Reports no additional complaints Physical exam (Primary Care) Vital Signs: Last Vital Signs Temp 98 F 10/10/24 12:11 Pulse 85 10/10/24 12:11 Resp 16 10/10/24 12:11 BP 118/58 L 10/10/24 12:11 Pulse Ox 96 10/10/24 12:11 Oxygen Delivery Method Room Air 10/10/24 12:11 BMI result Body Mass Index 28.2 Tobacco/Smoking Status: Tobacco use Status Tobacco use date assessed 10/10/24 10/10/24 12:18 Patient Tobacco Use Status Former Tobacco user (52 10/10/24 12:13 years ago) e-Cigarette/Vaping Use Never Used 10/10/24 12:13 Thrive Assessment: Date of Thrive Assessment Date Thrive assessed 10/10/24 10/10/24 12:13 Const General: no acute distress HENMT Head: Yes normal to inspection Ears: hearing grossly normal bilaterally Mouth: Normal oral and palatal mucosa present Eyes General: appearance normal, both eyes and all related structures Neck Neck: Yes no lymphadenopathy and Yes supple Resp Effort & Inspection: normal respiratory effort Auscultation: clear to auscultation bilaterally Cardio Rhythm: regular rhythm Heart sounds: S1 normal heart sound present and S2 normal heart sound present GI Inspection: Yes normal to inspection Palpation (GI): Soft to palpation Percussion: Yes normal to percussion Auscultation: normal bowel sounds Extrem General: Yes no clubbing, cyanosis or edema Coding Level of Care Code Est Pt Prev Care >65y(16324) Diagnoses Hyperlipemia E78.5 HTN (hypertension) I10 DM type 2 (diabetes mellitus, type 2) E11.9 Annual physical exam Z00.00 Assessment & Plan Assessment & Plan (1) Hyperlipemia: Code(s): E78.5 - Hyperlipidemia, unspecified Category: Medical Plan: Continue statin (2) HTN (hypertension): Code(s): I10 - Essential (primary) hypertension Category: Medical Plan: Continue current medications (3) DM type 2 (diabetes mellitus, type 2): Comment: > 10 years, f/u [facility] Code(s): E11.9 - Type 2 diabetes mellitus without complications Category: Medical Plan: A1c is 8.6, ADA diet increase exercise medication compliance discussed with the patient. Lantus will be increased to 30 units patient will follow-up in 1 month to review his blood glucose readings (4) Annual physical exam: Code(s): Z00.00 - Encounter for general adult medical examination without abnormal findings Category: Medical Plan: Well-balanced diet increase physical activity weight loss discussed with the patient, he had negative colonoscopy at 67 Medications: Changed From Lantus Solostar U-100 Insulin (insulin glargine) 20 units (0.2 mL) subcut QPM 15 mL 1RF NS To Lantus Solostar U-100 Insulin (insulin glargine) 30 units (0.3 mL) subcut QPM 30 mL 2RF NS Refilled Ozempic (semaglutide) 2 mg (0.75 mL) subcut QWEEK 9 mL 3RF NS
== END 2024-10-10 12:41 | disposition home or self-care (01) ==
PROVIDERS: PCP Internal Medicine; Visit Provider Internal Medicine
DX: Z00.00 Encounter for general adult medical examination without abnormal findings (principal); E78.5 Hyperlipidemia, unspecified; I10 Essential (primary) hypertension; E11.69 Type 2 diabetes mellitus with other specified complication

== ENCOUNTER → 2024-10-10 11:59 | Outpatient (BNVA) | payer MEDICARE, OTHER, SELFPAY | PROVIDERS: PCP Internal Medicine; Visit Provider Internal Medicine | DX: Z00.00 Encounter for general adult medical examination without abnormal findings (principal); E78.5 Hyperlipidemia, unspecified; I10 Essential (primary) hypertension; E11.9 Type 2 diabetes mellitus without complications | CPT/HCPCS: 99397 ==

== ENCOUNTER 2024-11-08 12:19 | Outpatient (AMB) | payer MEDICARE, OTHER, SELFPAY ==
[2024-11-08 12:37] VITALS: BP 124/70; PULSE 71; RESP 17; O2SAT 96; BMI 28.0
--- NOTE | 2024-11-08 12:37 | A.OFFPC_ITS ---
Vital Signs 11/08/24 12:37 Height 5 ft 7 in Weight 178 lb 8 oz BMI 28.0 BP 124/70 Blood Pressure Location Lt brachial Position Sitting Respiration 17 Pulse 71 Pulse Source Pulse Oximeter Pulse Oximetry (%) 96 Intake Visit Reasons: 1 months f/up Intake Note: Pt is here today foe 1 month follow up Allergies No Known Allergies Allergy (Verified 11/08/24 12:37) Tobacco use date assessed: 11/08/24 Fall risk assessment: No Falls in past year Last assessed Fall Risk: 11/08/24 Dental Screening Dental Screen Date: 11/08/24 Did you have a dental visit in the last 12 months?: No Did you have a dental problem in the last 6 months where you did not have access to dental care?: No Was dental information given to patient?: Patient declined HPI 1 months f/up HPI Details Patient presents for the follow-up of insulin-dependent diabetes. He reports improved fasting blood glucose readings down to 120. Patient is not compliant with ADA diet and has a lot of fluctuation in daily blood glucose between highs and lows. He has been taking Jardiance, Ozempic metformin and insulin. Hypertension is controlled on lisinopril FOR[facility]LY [facility], [facility] Family History Father Diabetes Mother Diabetes Brother Diabetes Sister Diabetes Social History Housing: House Patient Tobacco Use Status: Former Tobacco user (50 years ago) e-Cigarette/Vaping Use: Never Used service: No Current occupational status: retired Cognitive needs: No Hearing needs: No Vision needs: Yes Questionnaire PHQ-9 Over the last 2 weeks, how often have you been bothered by any of the following problems? 1. Little interest or pleasure in doing things: not at all 2. Feeling down, depressed, or hopeless: not at all 3. Trouble falling or staying asleep, or sleeping too much: not at all 4. Feeling tired or having little energy: not at all 5. Poor appetite or overeating: not at all 6. Feeling bad about yourself - or that you are a failure or have let yourself or your family down: not at all 7. Trouble concentrating on things, such as reading the newspaper or watching television: not at all 8. Moving or speaking so slowly that other people could have noticed. Or the opposite - being so fidgety or restless that you have been moving around a lot more than usual: not at all 9. Thoughts that you would be better off or of hurting yourself in some wa y: not at all Total score: 0 Depression Screening Interpretation: Negative Depression Screening Done: Yes 54928 - PHQ-9 Billing: Yes Source: Developed by Drs. Júnior Xie, Sirena Pereyra, Omkar Howard and colleagues, with an educational celine from [employer]. Thrive Questionnaire Date Thrive assessed: 11/08/24 I am a: Patient What is your living situation today?: I have a steady place to live Within the past 12 months, did the food you bought not last and you didn't have the money to get more?: Never true Within the past 12 months, did you worry whether your food would run out before you got money to buy more?: Never true Do you have trouble paying for medicines?: No Do you have trouble getting transportation to medical appointments?: No Do you have trouble paying your heating and electricity bill?: No Do you have trouble taking care of your child, family member or friend?: No Do you have trouble with day-to-day activities such as bathing, preparing meals, shopping, managing finances, etc.?: No Are you currently unemployed and looking for a job?: No Are you interested in more education?: No Please select the resources that you would like help with: None Currently or been in a relationship where the following occur: No concerns reported THRIVE Score: 0 AUDIT C Alcohol Use Questionnaire (AUDIT-C) 1. How often do you have a drink containing alcohol?: Never 3. How often do you have six or more drinks on one occasion?: Never Total Score: 0 Score Reviewed/Action Taken: Yes ALLY-7 AMB Questionnaire ALLY-7 Date ALLY - 7 assessed: 11/08/24 Feeling nervous, anxious, or on edge: 0 = Not at all Not being able to stop or control worryin = Not at all Worrying too much about different things: 0 = Not at all Trouble relaxin = Not at all Being so restless that it is hard to sit still: 0 = Not at all Becoming easily annoyed or irritable: 0 = Not at all Feeling afraid as if something awful might happen: 0 = Not at all Total ALLY-7 score (0-4 normal; 5-9 mild; 10-14 moderate; 15-21 severe): 0 Source: Developed by Drs. Júnior Xie, Sirena Pereyra, Omkar Howard and colleagues, with an educational celine from [employer]. ALLY-7 Assessment Billing ALLY-7 Assessment Tool: ALLY-7 Assessment 87529 Review of Systems Const All systems reviewed & are unremarkable except as noted in HPI and below Eyes Reports no additional complaints ENT Reports no additional complaints Card Reports no additional complaints Resp Reports no additional complaints GI Reports no additional complaints Physical exam (Primary Care) Vital Signs: Last Vital Signs Pulse 71 11/08/24 12:37 Resp 17 11/08/24 12:37 BP 124/70 11/08/24 12:37 Pulse Ox 96 11/08/24 12:37 BMI result Body Mass Index 28.0 Tobacco/Smoking Status: Tobacco use Status Tobacco use date assessed 11/08/24 11/08/24 12:42 Patient Tobacco Use Status Former Tobacco user (52 11/08/24 12:40 years ago) e-Cigarette/Vaping Use Never Used 11/08/24 12:40 PHQ-9: PHQ-9 Score PHQ-9: Total score 0 11/08/24 12:42 Depression Screening Interpretation: Negative Thrive Assessment: Date of Thrive Assessment Date Thrive assessed 11/08/24 11/08/24 12:42 Currently or been in a relationship where the following occur: No concerns reported Const General: no acute distress HENMT Head: Yes normal to inspection Eyes General: appearance normal, both eyes and all related structures Resp Effort & Inspection: normal respiratory effort Auscultation: clear to auscultation bilaterally Cardio Rhythm: regular rhythm Heart sounds: S1 normal heart sound present and S2 normal heart sound present GI Inspection: Yes normal to inspection Palpation (GI): Soft to palpation Percussion: Yes normal to percussion Coding Level of Care Code Est Pt Level 4 (76478) Diagnoses DM type 2 (diabetes mellitus, type 2) E11.9 HTN (hypertension) I10 Hyperlipemia E78.5 Additional Codes ALLY-7 Assessment Billing - ALLY-7 Assessment Tool: ALLY-7 Assessment 22185 ([id number]) PHQ-9 - 70087 - PHQ-9 Billing: Yes ([id number]) Assessment & Plan Assessment & Plan (1) DM type 2 (diabetes mellitus, type 2): Comment: > 10 years, f/u [facility] Code(s): E11.9 - Type 2 diabetes mellitus without complications Category: Medical Plan: Continue current medications ADA diet regular physical activity discussed with the patient, follow-up in 2 months with a fasting labs before (2) HTN (hypertension): Code(s): I10 - Essential (primary) hypertension Category: Medical Plan: Continue current medication (3) Hyperlipemia: Code(s): E78.5 - Hyperlipidemia, unspecified Category: Medical Plan: Continue statin Orders: Orders Hemoglobin A1c 2 Months E11.9 - Type 2 diabetes mellitus without complications, E78.5 - Hyperlipidemia, unspecified, I10 - Essential (primary) hypertension Microalbumin, Random (w Creat) 2 Months E11.9 - Type 2 diabetes mellitus without complications, E78.5 - Hyperlipidemia, unspecified, I10 - Essential (primary) hypertension Comprehensive [place]. Panel Fast 2 Months E11.9 - Type 2 diabetes mellitus without complications, E78.5 - Hyperlipidemia, unspecified, I10 - Essential (primary) hypertension Lipid Panel 2 Months E11.9 - Type 2 diabetes mellitus without complications, E78.5 - Hyperlipidemia, unspecified, I10 - Essential (primary) hypertension Complete Blood Count Auto Diff 2 Months E11.9 - Type 2 diabetes mellitus without complications, E78.5 - Hyperlipidemia, unspecified, I10 - Essential (primary) hypertension Medications: New metformin 1,000 mg (2 x 500 mg) PO BID 360 tabs 3RF Refilled Jardiance (empagliflozin) 25 mg PO DAILY 90 tabs 3RF NS
== END 2024-11-08 13:24 | disposition home or self-care (01) ==
PROVIDERS: PCP Internal Medicine; Visit Provider Internal Medicine
DX: E11.9 Type 2 diabetes mellitus without complications (principal); I10 Essential (primary) hypertension; E78.5 Hyperlipidemia, unspecified

== ENCOUNTER → 2024-11-08 12:19 | Outpatient (BNVA) | payer MEDICARE, OTHER, SELFPAY | PROVIDERS: PCP Internal Medicine; Visit Provider Internal Medicine | DX: E11.9 Type 2 diabetes mellitus without complications (principal); I10 Essential (primary) hypertension; E78.5 Hyperlipidemia, unspecified | CPT/HCPCS: 96127; 99212 ==

== ENCOUNTER 2025-01-03 08:34 | Outpatient (REF) | payer MEDICARE, OTHER, SELFPAY ==
[2025-01-03 10:03] LABS: MANUAL DIFF FLAG NO
[2025-01-03 10:16] LABS: Basophils Absolute Auto 0.1 X10*3/uL (0.0-0.2); Basophils Percent Auto 1.2 % (0-2); Eosinophils Absolute Auto 0.5 X10*3/uL (0.0-0.4); Eosinophils Percent Auto 6.1 % (0-4); Hematocrit 41.5 % (42.0-52.0); Hemoglobin 13.7 g/dl (14.0-18.0); Imm Gran Abs Auto 0.02 X10*3/uL (0.00-0.03); Imm Gran Pct Auto 0.3 % (0.0-0.4); Lymphocytes Percent Auto 38.5 % (20-40); Mean Corpuscular Hemoglobin 31.5 pg (27.0-33.0); Mean Corpuscular Volume 95.4 fL (80.0-98.0); Mean Platelet Volume 11.7 fL (9.4-12.4); Monocytes Absolute Auto 0.7 X10*3/uL (0.1-1.2); Monocytes Percent Auto 9.2 % (2-11); Neutrophils Absolute Auto 3.4 x10*3/uL (2.0-8.3); Neutrophils Percent Auto 44.7 % (45-73); Platelet Count 243 X10*3/uL (160-400); Red Blood Count 4.35 X10*6/uL (4.60-5.80); Red Cell Distribution Width 12.7 % (11.0-16.0); White Blood Count 7.7 X10*3/uL (4.8-10.8)
[2025-01-03 10:39] LABS: Estimated Average Glucose 180 mg/dL; Hemoglobin A1C 226.2353 umol/L; Hemoglobin A1c % 7.9 % (<6.0); Total Hemoglobin (HGBA1C) 3581.8875 umol/L
[2025-01-03 10:51] LABS: Alanine Aminotransferase 17 U/L (0-40); Albumin Level 4.1 g/dL (3.5-5.0); Alkaline Phosphatase 66 U/L (39-117); Anion Gap 12 (12-20); Aspartate Amino Transferase 20 U/L (5-37); Bilirubin Total 1.2 mg/dL (0.0-1.0); Blood Urea Nitrogen 15 mg/dL (9-16); Calcium 9.8 mg/dL (8.4-10.2); Carbon Dioxide 24 mmol/L (22-29); Chloride 108 mmol/L (96-108); Cholesterol 122 mg/dL (<200); Estimated Glomerular Filt Rate > 60; Glucose Fasting 119 mg/dL (60-99); HDL Cholesterol 43 mg/dL (>40); LDL Cholesterol Calculated 53 mg/dL (<100); Potassium 4.9 mmol/L (3.3-5.1); Sodium 139 mmol/L (135-145); Total Protein 6.7 g/dL (6.5-8.0); Triglycerides 134 mg/dL (<150)
[2025-01-03 11:20] LABS: Creatinine Urine 47.58 mg/dL; Microalbum/Creatinine Ratio Ur 16.8 ug/mg cr (<30)
== END 2025-01-03 08:35 | disposition home or self-care (01) ==
LOC: HO.HMGCLDS 08:34
PROVIDERS: PCP Internal Medicine; Visit Provider Internal Medicine
DX: E11.9 Type 2 diabetes mellitus without complications (principal); I10 Essential (primary) hypertension; E78.5 Hyperlipidemia, unspecified
CPT/HCPCS: 36415; 80053; 80061; 82043; 82570; 83036; 85025

== ENCOUNTER 2025-01-09 09:48 | Outpatient (AMB) | payer MEDICARE, OTHER, SELFPAY ==
--- NOTE | 2025-01-09 10:22 | MHC.PC.OV ---
Vital Signs 01/09/25 10:23 Height 5 ft 7 in Weight 180 lb BMI 28.2 BP 110/66 Blood Pressure Location Rt brachial Position Sitting Respiration 18 Pulse 69 Pulse Source Pulse Oximeter Temp 97.8 F Temp Source Oral Pulse Oximetry (%) 97 Oxygen Delivery Method Room Air Intake Visit Reasons: 2m f/u Intake Note: Pt is here today for 2 months follow up visit. Allergies No Known Allergies Allergy (Verified 01/09/25 10:23) Medication List - Last Reconciled 01/09/25 by Batsheva Hamilton MD diabetic supplies, [employer]. DIABETIC SHOES fluticasone propionate 50 mcg/actuation sprays intranasal Jardiance (empagliflozin) 25 mg PO DAILY NS lisinopril 40 mg PO DAILY metformin 1,000 mg (2 x 500 mg) PO BID Ozempic (semaglutide) 2 mg (0.75 mL) subcut QWEEK NS pen needle, diabetic Use to inject insulin once a day NS simvastatin 40 mg PO BEDTIME Tresiba FlexTouch U-100 (insulin degludec) 30 units (0.3 mL) subcut DAILY NS Tobacco use date assessed: 01/09/25 Dental Screening Dental Screen Date: 11/08/24 HPI 2m f/u HPI Details Patient presents for the follow-up of type 2 diabetes hypertension hyperlipidemia. Patient reports improve blood glucose control 45% in range for the last 30 days. Patient reports occasionally high readings up to 200s after eating sweets. He has been more physically active. Patient denies hypoglycemia PFSH Family History Father Diabetes Mother Diabetes Brother Diabetes Sister Diabetes Social History Housing: House Patient Tobacco Use Status: Former Tobacco user (50 years ago) e-Cigarette/Vaping Use: Never Used service: No Current occupational status: retired Cognitive needs: No Hearing needs: No Vision needs: Yes Questionnaire Thrive Questionnaire Date Thrive assessed: 10/10/24 ALLY-7 AMB Questionnaire ALLY-7 Date ALLY - 7 assessed: 11/08/24 Source: Developed by Drs. Júnior Xie, Sirena Pereyra, Omkar Howard and colleagues, with an educational celine from [employer]. Review of Systems Const All systems reviewed & are unremarkable except as noted in HPI and below Eyes Reports no additional complaints ENT Reports no additional complaints Card Reports no additional complaints Resp Reports no additional complaints GI Reports no additional complaints Reports no additional complaints Physical exam (Primary Care) Vital Signs: Last Vital Signs Temp 97.8 F 01/09/25 10:23 Pulse 69 01/09/25 10:23 Resp 18 01/09/25 10:23 BP 110/66 01/09/25 10:23 Pulse Ox 97 01/09/25 10:23 Oxygen Delivery Method Room Air 01/09/25 10:23 BMI result Body Mass Index 28.2 Tobacco/Smoking Status: Tobacco use Status Tobacco use date assessed 01/09/25 01/09/25 10:25 Patient Tobacco Use Status Former Tobacco user (52 01/09/25 10:25 years ago) e-Cigarette/Vaping Use Never Used 01/09/25 10:25 Thrive Assessment: Date of Thrive Assessment Date Thrive assessed 10/10/24 01/09/25 10:25 Const General: no acute distress HENMT Head: Yes normal to inspection Ears: hearing grossly normal bilaterally Mouth: Normal oral and palatal mucosa present Eyes General: appearance normal, both eyes and all related structures Neck Neck: Yes no lymphadenopathy and Yes supple Resp Effort & Inspection: normal respiratory effort Auscultation: clear to auscultation bilaterally Cardio Rhythm: regular rhythm Heart sounds: S1 normal heart sound present and S2 normal heart sound present GI Inspection: Yes normal to inspection Palpation (GI): Soft to palpation Percussion: Yes normal to percussion Auscultation: normal bowel sounds Coding Level of Care Code Est Pt Level 4 (46115) Diagnoses DM type 2 (diabetes mellitus, type 2) E11.9 Hyperlipemia E78.5 HTN (hypertension) I10 Assessment & Plan Assessment & Plan (1) DM type 2 (diabetes mellitus, type 2): Comment: > 10 years, f/u [facility] Code(s): E11.9 - Type 2 diabetes mellitus without complications Category: Medical Plan: A1c is down to 7.9. ADA diet regular physical activity eating regular meals discussed with the patient. Increase Tresiba to 35 units continue Ozempic Jardiance and metformin. Follow-up in 3 months with a fasting labs before (2) Hyperlipemia: Code(s): E78.5 - Hyperlipidemia, unspecified Category: Medical Plan: Continue statin (3) HTN (hypertension): Code(s): I10 - Essential (primary) hypertension Category: Medical Plan: Continue Lisinopril Orders: Orders Hemoglobin A1c 3 Months E11.9 - Type 2 diabetes mellitus without complications, E78.5 - Hyperlipidemia, unspecified, I10 - Essential (primary) hypertension Comprehensive [place]. Panel Fast 3 Months E11.9 - Type 2 diabetes mellitus without complications, E78.5 - Hyperlipidemia, unspecified, I10 - Essential (primary) hypertension Complete Blood Count Auto Diff 3 Months E11.9 - Type 2 diabetes mellitus without complications, E78.5 - Hyperlipidemia, unspecified, I10 - Essential (primary) hypertension Medications: Changed From Tresiba FlexTouch U-100 (insulin degludec) 30 units (0.3 mL) subcut DAILY 30 mL 3RF NS E11.9 - Type 2 diabetes mellitus without complications To Tresiba FlexTouch U-100 (insulin degludec) 35 units (0.35 mL) subcut DAILY 30 mL 3RF NS E11.9 - Type 2 diabetes mellitus without complications
[2025-01-09 10:23] VITALS: BP 110/66; PULSE 69; RESP 18; TEMP 36.6; O2SAT 97; BMI 28.2
== END 2025-01-09 11:08 | disposition home or self-care (01) ==
LOC: HO.HMCC 09:49
PROVIDERS: PCP Internal Medicine; Visit Provider Internal Medicine
DX: E11.9 Type 2 diabetes mellitus without complications (principal); E78.5 Hyperlipidemia, unspecified; I10 Essential (primary) hypertension

== ENCOUNTER → 2025-01-09 09:48 | Outpatient (BNVA) | payer MEDICARE, OTHER, SELFPAY | PROVIDERS: PCP Internal Medicine; Visit Provider Internal Medicine | DX: E11.9 Type 2 diabetes mellitus without complications (principal); E78.5 Hyperlipidemia, unspecified; I10 Essential (primary) hypertension | CPT/HCPCS: 99212 ==

== ENCOUNTER 2025-04-26 08:56 | Outpatient (REF) | payer MEDICARE, OTHER, SELFPAY ==
--- OUTSIDE RECORDS SUMMARY | 2025-04-26 09:10 | XMS_ITS | Clinical Summary ---
Author Organization [facility] Address [address] [place] [id number] Phone Care Team Providers [facility] Teacher Name Role Phone Batsheva Hamilton MD Primary Care Provider [phone] Allergies No known active allergies Medications cloNIDine HCL (CATAPRES) 0.1 MG tablet Take 0.1 mg by mouth 2 (two) times a day. Active aspirin 81 mg chewable tablet Take 81 mg by mouth daily. Active multivitamins with minerals- folic acid-lycopene (MEN'S ONE-A-DAY) 400-20-300 mcg Tab Take 1 tablet by mouth daily. Active fluticasone propionate (FLONASE) 50 mcg/actuation nasal spray 1 spray qd nostril qd prn allergies 16 g 3 07/21/20 22 Active lisinopril (PRINIVIL,ZESTRI L) 40 MG tabletIndication s:Primary hypertension Take 1 tablet (40 mg total) by mouth daily. 90 tablet 07/05/20 23 Active simvastatin (ZOCOR) 40 MG tabletIndication s:Hyperlipidemia TAKE 1 TABLET BY MOUTH NIGHTLY AT BEDTIME 30 tablet 08/15/20 23 Active LANTUS SOLOSTAR U-100 INSULIN 100 unit/mL (3 mL) InPn injection pen Inject 30 Units under the skin daily. 09/27/19 24 Active semaglutide (OZEMPIC) 2 mg/dose (8 mg/3 mL) subcutaneous injection pen Inject 2 mg under the skin every 7 days. Active metFORMIN (GLUCOPHAGE) 500 MG tabletIndication s:Type 2 diabetes mellitus with hyperglycemia, without long-term current use of insulin Take 2 tablets (1,000 mg total) by mouth 2 (two) times a day with meals. E11.65 360 tablet 3 08/20/20 Active JARDIANCE 25 mg tabletIndication s:Type 2 diabetes mellitus with hyperglycemia, without long-term current use of insulin Take 1 tablet (25 mg total) by mouth daily. DX:E11.65 90 tablet 3 09/03/20 Active ONETOUCH VERIO FLEX METER Misc meterIndications :Type 2 diabetes mellitus with hyperglycemia, without long-term current use of insulin Check BG once daily DxE11.65 1 each 12/04/19 Active ONETOUCH DELICA LANCETS 30 gauge MiscIndications: Type 2 diabetes mellitus with hyperglycemia, without long-term current use of insulin 1 each by Miscellaneous route every morning. Check BG once daily DxE11.65 100 each 12/04/19 Active ONETOUCH VERIO Strp stripsIndication s:Type 2 diabetes mellitus with hyperglycemia, without long-term current use of insulin Check BG once daily DxE11.65 50 strip 12/04/19 Active Active Problems Problem Noted Date Diagnosed Date Need for hepatitis C screening test 04/07/2022 Assessment & Plan (04/07/2022 4:17 PM EDT): Agrees to this Vitamin D deficiency 04/07/2022 Assessment & Plan (04/07/2022 4:16 PM EDT): Unclear if stable, check lab Erectile dysfunction 04/07/2022 Assessment & Plan (04/07/2022 4:17 PM EDT): Offered to refer to Urology Patient declined Personal history of malignant neoplasm of prosta te 04/07/2022 Assessment & Plan (04/07/2022 4:16 PM EDT): I offered to refer the patient to Urology for erectile dysfunction by patient declined Type 2 diabetes mellitus wit h hyperglycemia, without long-term current use of insulin 01/18/2022 Assessment & Plan (04/04/2025 12:17 PM EDT): CGM download reviewed with patient, patterns are good overnight, some variability that seem related to variable dietary intake Continues on metformin, basal insulin, SGLT-2i, and GLP-1 therapy, tolerating well We discussed foods that contain carbs and how to adjust diet based on CGM trends Encouraged continued efforts at mindful, balanced eating. Encouraged continued efforts at physical activity as tolerated Watson will follow up in 6 months with with me. Watson will continue to have CGM changed via nurse visit every 10 days and we discussed at any point this can be downloaded between visits for me to review. Advised to contact office with any questions or concerns. Assessment & Plan (12/03/2024 11:34 AM EDT): CGM download reviewed with patient, patterns are good overnight but occasionally trending low normal Continues on metformin, basal insulin, SGLT-2i, and GLP-1 therapy, tolerating well Denies symptoms of hypoglycemia but doesn't have a glucometer to confirm reading when CGM reads low Recommend reducing basal insulin to 27 units to help reduce risk of nocturnal hypoglycemia Encouraged continued efforts at mindful, balanced eating. Encouraged continued efforts at increasing physical activity as tolerated Watson will follow up in 4 months with with me. Watson will continue to have CGM changed via nurse visit every 10 days and we discussed at any point this can be downloaded between visits for me to review. Advised to contact office with any questions or concerns. Assessment & Plan (09/04/2024 1:20 PM EST): CGM download reviewed with patient, patterns are good overnight, but prandial elevations are frequent and significant Continues on metformin, basal insulin, SGLT-2i, and GLP-1 therapy, tolerating well Watson reports that activity has been less and feels this has led to higher blood sugars No adjustments to medication today, we discussed that short acting insulin would be necessary for prandial elevations since GLP1/GIP, SGLT2i, and metformin dosing is at the max, Watson declines today and would like to work on incorporating daily walks back into his routine Encouraged continued efforts at mindful, balanced eating. Encouraged continued efforts at increasing physical activity as tolerated Watson will follow up in 3 months with with me. Watson will continue to have CGM changed via nurse visit every 10 days and we discussed at any point this can be downloaded between visits for me to review. Advised to contact office with any questions or concerns. Assessment & Plan (08/07/2024 1:23 PM EST): CGM download reviewed Continues on metformin, DORSEY, basal insulin, SGLT-2i, and GLP-1 therapy, is already at max dosing with GLP1 Important to ensure that Watson has continued on this and has not missed any medication doses Would encourage continued efforts at mindful, balanced eating. Would encourage continued efforts at increasing physical activity as tolerated Watson will follow up at the end of the month with me, but should reach out with any concerns about blood sugars sooner Assessment & Plan (05/26/2024 9:19 PM EDT): CGM download reviewed with patient, improving patterns since start of insulin and transitioning to Ozempic from Mounjaro Continues on metformin, DORSEY, basal insulin, SGLT-2i, and GLP-1 therapy, tolerating well Encouraged continuing with current dosing for insulin, did briefly discuss increase in insulin dose, but Watson feels blood sugars are higher due to having more potatoes and wishes to work on this first before increasing insulin Encouraged continued efforts at mindful, balanced eating. Encouraged continued efforts at increasing physical activity as tolerated Watson will follow up in 3 months with with me. Watson will continue to have CGM changed via nurse visit every 10 days and we discussed at any point this can be downloaded between visits for me to review. Advised to contact office with any questions or concerns. Assessment & Plan (04/11/2024 11:47 AM EDT): CGM Trial Type of Diabetes: Diabetes mellitus Type 2 Assessment/HPI: Pierre is here today for CGM trial. Procedures: Glucose Monitoring: Type of Sensor: Dexcom Instruction: Patient Instructed on:, Calibrations, When to test BS, Troubleshooting, What to expect with the sensor, Patient instructed to remove sensor if redness, pain or bleeding occurs. . Insertion Site Selected: Left arm Site Prep: Insertion site wiped with alcohol. Insertion: completed, area looks good, no redness, no bleeding. Plan: Patient will remove sensor and return in 2 weeks to drop off at front desk clerk or follow up appointment. Assessment & Plan (03/26/2024 9:12 AM EDT): CGM Trial Type of Diabetes: Diabetes mellitus Type 2 Assessment/HPI: Pierre is here today for CGM trial. Procedures: Glucose Monitoring: Type of Sensor: Dexcom Sensor Instruction: Patient Instructed on:, Calibrations, When to test BS, Troubleshooting, What to expect with the sensor, Patient instructed to remove sensor if redness, pain or bleeding occurs. . Insertion Site Selected: Right arm Site Prep: Insertion site wiped with alcohol. Insertion: completed, area looks good, no redness, no bleeding. Plan: Patient will remove sensor and return in 2 weeks to drop off at front desk clerk or follow up appointment. Assessment & Plan (12/13/2023 8:04 AM EDT): .dc Assessment & Plan (11/21/2023 9:24 AM EDT): CGM download reviewed with patient, improving patterns since insulin initiation Continues on metformin, DORSEY, basal insulin, SGLT-2i, and GLP-1/GIP therapy, tolerating well Encouraged continuing with current dosing for insulin, since change last week numbers have improved Encouraged continued efforts at mindful, balanced eating. Encouraged continued efforts at increasing physical activity as tolerated Reviewed hypoglycemia treatment Pierre will follow up in 3 months with Mariajose Marrero and in 6 months with me. Pierre will continue to have CGM changed via nurse visit every 10 days and we discussed at any point this can be downloaded between visits for me to review. Advised to contact office with any questions or concerns. Assessment & Plan (10/04/2023 5:06 PM EST): CGM download reviewed with patient, globally elevated readings Continues on metformin, DORSEY, SGLT-2i, and GLP-1/GIP therapy, tolerating well, recently prescribed insulin by pcp but unsure how to use, insulin teach provided, recommend to start at prescribed dose of 10 units daily Reviewed hypoglycemia treatment Encouraged continued efforts at mindful, balanced eating. Encouraged continued efforts at increasing physical activity as tolerated Pierre will follow up in 3 months with me to follow up on medication start. Pierre will continue to have CGM changed via nurse visit every 10 days and we discussed at any point this can be downloaded between visits for me to review. Advised to contact office with any questions or concerns. Instruction/Education: Medication: Medication: Lantus Instruction: Provider order reviewed with patient. When to take medication, dosage, and how to take medication. Information given on troubleshooting and side effects of medication. Education Materials Provided: N/A Insulin /Medication Instruction: Patient was instructed on the following topics: insulin injection, insulin pen, needle disposal, needle/lancet reuse, site selection Education Topics Discussed: self care through lifestyle, medication, exercise, treatment of low BG using rule of 15 Patient Demonstrated: Injection with Lantus pen, glucose monitoring , reviewed today, demonstrates good technique, good understanding, administered first injection in office without issue Assessment & Plan (09/01/2023 3:20 PM EST): CGM Trial Type of Diabetes: Diabetes mellitus Type 2 Assessment/HPI: Pierre is here today for CGM trial. Procedures: Glucose Monitoring: Type of Sensor: Dexcom G7 Instruction: Patient Instructed on:, Calibrations, When to test BS, Troubleshooting, What to expect with the sensor, Patient instructed to remove sensor if redness, pain or bleeding occurs. . Insertion Site Selected: Left arm Site Prep: Insertion site wiped with alcohol. Insertion: completed, area looks good, no redness, no bleeding. Plan: Patient will remove sensor and return in 2 weeks to drop off at front desk clerk or follow up appointment. Assessment & Plan (08/17/2023 10:59 AM EST): CGM download reviewed with patient Glyemic control is rather unchanged since switching from GLP-1ra to GLP1/GIP Continues on metformin, DORSEY, SGLT-2i, and GLP-1/GIP therapy, tolerating well Discussed optimizing Allen and Pierre is agreeable to this Encouraged continued efforts at mindful, balanced eating. Encouraged continued efforts at increasing physical activity as tolerated Pierre will follow up in 3 months with me to follow up on medication start. Pierre will continue to have CGM changed via nurse visit every 10 days and we discussed at any point this can be downloaded between visits for me to review. Advised to contact office with any questions or concerns. Assessment & Plan (06/28/2023 4:25 PM EDT): CGM interpretation reveals primarily elevated patterns, patterns higher than when previously on Trulicity 3 mg weekly, needs optimized dose of Mounjaro Will benefit from Mounjaro optimization but has not been on current dose for a month quite yet Will continue to monitor patterns, but will follow up on this at next visit in 3 weeks and discuss dose optimization Assessment & Plan (06/06/2023 12:56 PM EDT): CGM download reviewed with patient Glyemic control has actually worsened since optimizing GLP1 therapy Continues on metformin, DORSEY, SGLT-2i, and GLP-1 therapy Briefly discussed other alternative medications to help improve glycemic control, including switching to GLP-1ra/GIP therapy, Mounjaro, or starting a once daily basal insulin. Pierre would like to first try Mounjaro, given similar action and administration as Trulicity, just stronger effect Encouraged continued efforts at mindful, balanced eating. Encouraged continued efforts at increasing physical activity as tolerated Pierre will follow up in 6 weeks with me to follow up on medication start. Ansrzej will continue to have CGM changed via nurse visit every 10 days. Advised to contact office with any questions or concerns. Assessment & Plan (03/22/2023 5:56 PM EDT): CGM download reviewed with patient Glyemic control has mildly improved since CGM pro Continues on metformin, DORSEY, SGLT-2i, and GLP-1 therapy Briefly discussed other alternative medications to help improve glycemic control, including optimizing GLP-1ra therapy or starting a once daily basal insulin. Pierre would like to first try optimizing the GLP-1ra, but if this doesn't seem to be effective enough, is agreeable to try insulin Encouraged to trial off Jardiance for a couple weeks to see if this resolves cramping in calf, stays very well hydrated, but SGLT2i can lead to dehydration. Advised holding will lead to higher sugars and to resume therapy if cramping doesn't resolve with holding SGLT2i, advised reaching out to PCP if cramping continues despite holding SGLT2i Encouraged continued efforts at mindful, balanced eating. Encouraged continued efforts at increasing physical activity as tolerated Pierre will follow up in 2 months with me. Advised to contact office with any questions or concerns. Assessment & Plan (03/10/2023 1:49 PM EDT): CGM Trial Type of Diabetes: type 2 diabetes Assessment/HPI: Pierre is here today for CGM trial. Procedures: Glucose Monitoring: Type of Sensor: dexcom g7 personal sensor Instruction: Patient Instructed on:03/10/23, Calibrations, When to test BS, Troubleshooting, What to expect with the sensor, Patient instructed to remove sensor if redness, pain or bleeding occurs. . Insertion Site Selected: back of right arm Site Prep: Insertion site wiped with alcohol. Insertion: completed, area looks good, no redness, no bleeding. Plan: Patient will remove sensor and return in 11 days on 03/21/23 for help with placemtn of another sensor Assessment & Plan (12/21/2022 3:21 PM EDT): CGM download reviewed with patient Glyemic control has worsened compared to last CGM pro trial which may be dietary related, Pierre does feel that there are dietary adjustments that could be made Continues on metformin, DORSEY, SGLT-2i, and GLP-1 therapy Briefly discussed other alternative medications to help improve glycemic control, Pierre feels control is improving compared to A1c and does not wish to consider new medications Offered appointment with diabetes education to work on more lifestyle modifications and Pierre is agreeable to this today Encouraged continued efforts at mindful, balanced eating. Briefly discussed ways to adjust current meals and encouraged more incorporation of non-starchy veggies and protein sources and to reduce the amount of carb sources. Encouraged continued efforts at increasing physical activity as tolerated Pierre will follow up in 2 weeks with Mariajose Marrero and in 3 months with me. Advised to contact office with any questions or concerns. Assessment & Plan (12/07/2022 4:15 PM EDT): Glyemic control has worsened which may be dietary related Unfortunately there is no meter data to review, agreeable to repeating a CGM trial Continues on metformin, DORSEY, SGLT-2i, and GLP-1 therapy Briefly discussed other alternative medications to help improve glycemic control, Pierre feels control is stable and does not wish to consider new medications Offered appointment with diabetes education to work on more lifestyle modifications though this was declined Encouraged continued efforts at mindful, balanced eating Encouraged continued efforts at increasing physical activity as tolerated Pierre will follow up in 2 weeks for CGM interpretation follow up. Advised to contact office with any questions or concerns. CGM Trial Type of Diabetes: Type 2 Diabetes Assessment/HPI: Pierre is here today for CGM trial. Procedures: Glucose Monitoring: Type of Sensor: wade pro Instruction: Patient Instructed on: 12/07/22, Calibrations, When to test BS, Troubleshooting, What to expect with the sensor, Patient instructed to remove sensor if redness, pain or bleeding occurs. . Insertion Site Selected: back of left arm Site Prep: Insertion site wiped with alcohol. Insertion: completed, area looks good, no redness, no bleeding. Plan: Patient will remove sensor and return in 2 weeks on 12/21/22 to drop off at front desk clerk or follow up appointment. Assessment & Plan (10/05/2022 2:35 PM EST): Overall glycemic control had improved since starting Trulicity, but likely has worsened more so lately given being off sulfonylurea therapy for the past couple months Unfortunately there is no meter data to support this and it is too early to repeat an A1c Continues on metformin, SGLT-2i, and GLP-1 therapy Would expect improvement in glycemic patterns with reinitiating sulfonylurea Encouraged continued efforts at mindful, balanced eating Encouraged continued efforts at increasing physical activity as tolerated Pierre will follow up in 2 months for follow up. Advised to contact office with any questions or concerns. Assessment & Plan (08/03/2022 4:41 PM EST): Pierre is returning after wearing a CGM for the past two weeks, overall glycemic control has improved a bit since starting Trulicity Avg BG 216 mg/dl, 26% of the time spent in range and the rest of the time is spent in high or very high ranges Continues on metformin, sulfoylurea, SGLT-2i, and GLP-1 therapy Discussed the indication for optimization of Trulicity dose based on CGM data and Pierre is agreeable to this Indira has 3 weeks left of current Trulicity dose and he is encouraged to finish this out and tow picker the new dose as soon as possible due to current medication shortage of GLP-1 agoinists Reviewed importance of only taking glipizide if eating to minimize hypoglycemia risk, reviewed hypoglycemia symptoms and to contact office if having these as Pierre may need reduction in sulfonylurea with optimization of GLP-1ra Encouraged continued efforts at mindful, balanced eating Encouraged continued efforts at increasing physical activity as tolerated Pierre will follow up in 2 months for medication follow up. Advised to contact office with any questions or concerns. Assessment & Plan (07/20/2022 8:25 PM EST): Overall glycemic control seems to be improving per CGM, though difficult to assess overall control with limited home glucose data Continues on metformin, sulfoylurea, SGLT-2i, and GLP-1 therapy Discussed repeating a CGM trial since beginning Trulicity and Pierre is agreeable to this Discussed the likely indication for optimization of Trulicity dose based on CGM data Reviewed importance of only taking glipizide if eating to minimize hypoglycemia risk Encouraged continued efforts at mindful, balanced eating Encouraged continued efforts at increasing physical activity as tolerated Pierre will follow up in 2 weeks for CGM interpretation. Advised to contact office with any questions or concerns sooner. CGM Trial Type of Diabetes: type 2 diabetes Assessment/HPI: Pierre is here today for CGM trial. Procedures: Glucose Monitoring: Type of Sensor: wade pro Instruction: Patient Instructed on:07/20/22, Calibrations, When to test BS, Troubleshooting, What to expect with the sensor, Patient instructed to remove sensor if redness, pain or bleeding occurs. . Insertion Site Selected: back of left arm Site Prep: Insertion site wiped with alcohol. Insertion: completed, area looks good, no redness, no bleeding. Plan: Patient will remove sensor and return in 2 weeks to drop off at front desk clerk or follow up appointment. Assessment & Plan (04/07/2022 4:17 PM EDT): Uncontrolled F/u Endo Told patient to stop Januvia given that he's now on Trulicity Assessment & Plan (03/10/2022 2:14 PM EDT): Pierre is returning for follow up since starting Trulicity. Overall glycemic control seems to be improving with sugars mostly in the 120-180 mg/dl per report. Discussed potential for optimization of Trulicity dose but there is not sufficient glucose data to base increased dose off of. Also, Pierre does not wish to increase the medication at this time because he feels things are better Some concern for hypoglycemia when more active in the garden reporting dizziness yesterday. Encouraged checking sugar with these symptoms to rule out hypoglycemia and to remain well hydrated when working in the heat Stressed importance of only taking glipizide if eating to minimize hypoglycemia risk Encouraged continued efforts at mindful, balanced eating Encouraged continued efforts at increasing physical activity as tolerated Pierre will follow up in 4 months. Advised to contact office with any questions or concerns sooner. Assessment & Plan (01/27/2022 12:21 PM EDT): Pierre is returning after wearing a CGM for the past week and a half. Avg BG 2289 mg/dl, minimal time spent in range and majority of time is spent in high or very high ranges. Pierre still expresses hesitancy on starting insulin, but is agreeable to a once weekly injectable. We discussed using a GLP-1 agonist to prolong start of insulin. Montserrat was agreeable with trying Trulicity. Education provided on action, administration, and potential side effects. Sample was provided and Pierre adequately returned demo. Encouraged continued efforts at mindful, balanced eating Encouraged continued efforts at increasing physical activity as tolerated Pierre will follow up in 6 weeks for medication follow up. Advised to contact office with any questions or concerns. Instruction/Education: Medication: Medication: Trulicity Instruction: When to take medication, dosage, and how to take medication. Information given on troubleshooting and side effects of medication. When to call with side effects, ways to minimize side effects Insulin /Medication Instruction: Patient was instructed on the following topics: Trulicity pen injection Education Topics Discussed: self care through lifestyle, medication Patient Demonstrated: Injection with Trulicity pen Assessment & Plan (01/18/2022 2:50 PM EDT): Pierre is here for an initial visit for diabetes management. Overall, glycemic control is steadily worsening, on five oral DM agents and still struggling glycemically. Insulin has been mentioned in the past by PCP and Pierre has wished to avoid it if possible. Difficult to advise on treatment regimen without blood sugars, though given poor control despite multiple DM oral agents, once daily basal insulin would be appropriate. A GLP-1 agonist could also be beneficial to Pierre to prolong start of insulin. We discussed insulin briefly today and again, Pierre would like to avoid at all costs if possible. For now, Pierre agrees to doing a CGM trial to better assess glycemic control. Encouraged continued efforts at mindful, balanced eating Encouraged continued efforts at increasing physical activity as tolerated Pierre will follow up in 10 days for CGM interpretation. Advised to contact office with any questions or concerns. CGM Trial Type of Diabetes: Diabetes mellitus Type 2 Assessment/HPI: Pierre is here today for CGM trial. Procedures: Glucose Monitoring: Type of Sensor: Dexcom Pro Instruction: Patient Instructed on:, Calibrations, When to test BS, Troubleshooting, What to expect with the sensor, Patient instructed to remove sensor if redness, pain or bleeding occurs. . Insertion Site Selected: left arm Site Prep: Insertion site wiped with alcohol. Insertion: completed, area looks good, no redness, no bleeding. Plan: Patient will return in 10 days for follow up appointment. Primary hypertension 01/18/2022 Assessment & Plan (04/04/2025 11:12 AM EDT): BP in good range today BP goal < 130/80 Continues on antihypertensive regimen that includes ACEi SGLT2i likely aiding in BP control Assessment & Plan (12/03/2024 11:22 AM EDT): BP in good range today BP goal < 130/80 Continues on antihypertensive regimen that includes ACEi SGLT2i likely aiding in BP control Assessment & Plan (09/04/2024 1:20 PM EST): BP in good range today BP goal < 130/80 Continues on antihypertensive regimen that includes ACEi SGLT2i likely aiding in BP control Assessment & Plan (05/26/2024 9:20 PM EDT): BP in good range today BP goal < 130/80 Continues on antihypertensive regimen that includes ACEi SGLT2i likely aiding in BP control Assessment & Plan (11/21/2023 8:53 AM EDT): BP in good range today BP goal < 130/80 Continues on antihypertensive regimen that includes ACEi SGLT2i likely aiding in BP control Assessment & Plan (10/04/2023 5:06 PM EST): BP essentially normal today BP goal < 130/80 Continues on ACEi, clonidine SGLT2i likely aiding in BP control Assessment & Plan (08/17/2023 11:18 AM EST): BP historically well controlled BP goal < 130/80 Continues on ACEi, clonidine SGLT2i likely aiding in BP control Assessment & Plan (06/06/2023 12:56 PM EDT): BP well controlled today BP goal < 130/80 Continues on ACEi, clonidine SGLT2i likely aiding in BP control Assessment & Plan (03/22/2023 5:39 PM EDT): BP well controlled today BP goal < 130/80 Continues on ACEi, clonidine SGLT2i likely aiding in BP control Assessment & Plan (12/07/2022 3:03 PM EDT): BP well controlled today BP goal < 130/80 Continues on ACEi, clonidine SGLT2i likely aiding in BP control Assessment & Plan (10/05/2022 2:36 PM EST): BP well controlled today BP goal < 130/80 Continues on ACEi, clonidine SGLT2i likely aiding in BP control Assessment & Plan (07/20/2022 8:26 PM EST): BP well controlled today BP goal < 130/80 Continues on ACEi, clonidine. SGLT2i likely aiding in BP control Assessment & Plan (04/07/2022 4:16 PM EDT): Controlled on meds Assessment & Plan (03/10/2022 1:38 PM EDT): BP well controlled today BP goal < 130/80 Continues on ACEi, clonidine. SGLT2i likely aiding in BP control Assessment & Plan (01/27/2022 12:12 PM EDT): BP well controlled today BP goal < 130/80 Continues on ACEi, clonidine. SGLT2i likely aiding in BP control Assessment & Plan (01/18/2022 2:45 PM EDT): BP well controlled today BP goal < 130/80 Continues on ACEi, clonidine. SGLT2i likely aiding in BP control Hyperlipidemia 01/18/2022 Assessment & Plan (04/04/2025 12:19 PM EDT): No recent updated lipid panel, last on file from 2021, has labs done through PCP can request these LDL mildly elevated at 77 Goal < 70 with DM Continues on moderate intensity statin Assessment & Plan (12/03/2024 11:23 AM EDT): No recent updated lipid panel LDL mildly elevated at 77 Goal < 70 with DM Continues on moderate intensity statin Assessment & Plan (09/03/2024 1:50 PM EST): No recent updated lipid panel LDL mildly elevated at 77 Goal < 70 with DM Continues on moderate intensity statin Assessment & Plan (05/26/2024 9:20 PM EDT): No recent updated lipid panel LDL mildly elevated at 77 Goal < 70 with DM Continues on moderate intensity statin Assessment & Plan (11/21/2023 9:24 AM EDT): No recent updated lipid panel LDL mildly elevated at 77 Goal < 70 with DM Continues on low intensity statin Assessment & Plan (10/04/2023 5:07 PM EST): No recent updated lipid panel, overdue on lipid panel LDL mildly elevated at 77 Goal < 70 Continues on low intensity statin Assessment & Plan (08/17/2023 11:00 AM EST): No recent updated lipid panel, overdue on lipid panel LDL mildly elevated at 77 Goal < 70 Continues on low intensity statin Assessment & Plan (06/06/2023 12:57 PM EDT): No recent updated lipid panel, overdue on lipid panel LDL mildly elevated at 77 Goal < 70 Continues on low intensity statin Assessment & Plan (03/22/2023 5:40 PM EDT): No recent updated lipid panel, overdue on lipid panel LDL mildly elevated at 77 Goal < 70 Continues on low intensity statin Assessment & Plan (12/07/2022 3:03 PM EDT): No recent updated lipid panel LDL mildly elevated at 77 Goal < 70 Continues on low intensity statin Assessment & Plan (10/05/2022 2:36 PM EST): No recent updated lipid panel LDL mildly elevated at 77 Goal < 70 Continues on low intensity statin Assessment & Plan (07/20/2022 8:26 PM EST): No recent updated lipid panel LDL mildly elevated at 77 Goal < 70 Continues on low intensity statin Assessment & Plan (04/07/2022 4:17 PM EDT): Controlled with meds Assessment & Plan (03/10/2022 1:38 PM EDT): Lipid panel reviewed LDL mildly elevated at 77 Goal < 70 Continues on low intensity statin Assessment & Plan (01/27/2022 12:18 PM EDT): Lipid panel reviewed LDL mildly elevated at 77 Goal < 70 Continues on low intensity statin Assessment & Plan (01/18/2022 2:57 PM EDT): Lipid panel reviewed LDL mildly elevated at 77 Goal < 70 Continues on low intensity statin CGM Trial Type of Diabetes: Type 2 Diabetes Assessment/HPI: Pierre is here today for CGM trial. Procedures: Glucose Monitoring: Type of Sensor: dexcom pro Instruction: Patient Instructed on: 01/18/22, Calibrations, When to test BS, Troubleshooting, What to expect with the sensor, Patient instructed to remove sensor if redness, pain or bleeding occurs. . Insertion Site Selected: Dexcom Pro Site Prep: Insertion site wiped with alcohol. Insertion: completed, area looks good, no redness, no bleeding. Plan: Patient will remove sensor and return in 10 days to drop off and follow up appointment. Encounters Date Type Department Care Team Description 04/15/2025 10:45 AM EDT Nurse Only [facility] [address] [place] [address] [place] [phone] Ariadna Pena CNP 04/04/2025 10:40 AM EDT Office Visit [address] [place] [address] Ariadna Pena CNP Type 2 diabetes mellitus with hyperglycemia, without long-term current use of insulin (Primary Dx); Primary hypertension; Hyperlipidemia, unspecified hyperlipidemia type 04/04/[address] [place] [address] Ariadna Pena CNP Labs 04/03/2025 10:00 AM EDT Nurse Only [facility] [place] [address] Veto Aggarwal DO Type 2 diabetes mellitus with hyperglycemia, without long-term current use of insulin (Primary Dx) 03/25/2025 11:00 AM EDT Nurse Only [facility] [place] [address] Veto Aggarwal DO 03/14/2025 10:30 AM EDT Nurse Only [address] [place] [address] Elda Joseph MD 03/04/2025 10:30 AM EDT Nurse Only [facility] [place] [address] Elda Joseph MD Type 2 diabetes mellitus with hyperglycemia, without long-term current use of insulin (Primary Dx) 03/04/2025 Telephone [facility] [address] [place] [address] [place] [address] Elda Joseph MD 02/20/2025 10:30 AM EDT Nurse Only [facility] [address] [place] [address] [place] [address] Elda Joseph MD Type 2 diabetes mellitus with hyperglycemia, without long-term current use of insulin (Primary Dx) 02/11/2025 2:30 PM EDT Nurse Only [facility] [address] [place] [address] Elda Joseph MD 01/30/2025 11:30 AM EDT Nurse Only [address] [place] [address] Elda Joseph MD 01/24/2025 10:30 AM EDT Nurse Only [facility] [address] [place] [address] [place] [address] Elda Joseph MD Type 2 diabetes mellitus with hyperglycemia, without long-term current use of insulin (Primary Dx) from Last 3 Months Immunizations Immunization Administration Dates Next Due COVID-19 (Pre-06/27) Pfizer Vaccine, mRNA, PF Influenza High-Dose Quadrivalent Preservative Fr ee IM 05/16/2020 Influenza Quadrivalent MDCK Preservative Free IM 06/09/2023,06/20/2017 Influenza Trivalent Adjuvanted Preservative free IM 06/05/2018 Pneumococcal conjugate PCV13 01/16/2014 Pneumococcal polysaccharide PPSV23 04/07/2022 Td (adult) 5 Lf Tetanus Toxoid, PF, Adsorbed 11/2021 Tdap 05/28/2011 Family History Relation Status Comments Father Mother Social History Tobacco Use Types Packs/Day Years Used Date Smoking Tobacco: Never Smokeless Tobacco: Never Tobacco Cessation:Counseling Given: Not Answered Alcohol Use Standard Drinks/Week Comments Yes 0 (1 standard drink = 0.6 oz pur e alcohol) occasional, 0-1 drink a month Education Answer Date Recorded Are you interested in more education? Not on jeanne e 12/30/2022 Are you concerned about learning? Not on file 12/30/2022 No 12/30/2022 No 12/30/2022 Digital Access Answer Date Recorded No 01/31/2023 No 01/31/2023 Reliable internet access at home? Not on file 01/31/2023 Device with a working camera? Not on file Sex and Gender Information Value Date Recorded Sex Assigned at Not on file Legal Sex Male 9:59 PM EDT Gender Identity Not on file Sexual Orientation Not on file Last Filed Vital Signs Vital Sign Reading Time Taken Comments Blood Pressure 104/62 04/04/2025 10:47 AM EDT Pulse 68 04/04/2025 10:47 AM EDT Temperature 36.2 C (97.1 F) 11/21/2023 8:02 AM EDT Respiratory Rate 14 06/04/2020 9:28 AM EDT Oxygen Saturation 98% 04/04/2025 10: 47 AM EDT Inhaled Oxygen Concentration - - Weight 80.6 kg (177 lb 12.8 oz) 025 10:47 AM EDT Height 172.7 cm (5' 7.99 ) 04/04/2025 1 0:47 AM EDT Body Mass Index 27.04 04/04/2025 10:47 AM EDT Plan of Treatment Upcoming Encounters Date Type Department Care Team (Late st Contact Info) Description 05/07/2025 10:00 AM EDT Nurse Only [facility] Diabetes [address] [place] [address] Ariadna Pena, EDEN [address] [place] [phone] 09/30/2025 12:30 PM EST Office Visit [facility] [address] [place] [address] Ariadna Pena, EDEN [address] [place] [phone] Health Maintenance Due Date Last Done Comments DEPRESSION SCREENING 1964 HEPATITIS C SCREENING 1970 COLOGUARD 1997 FIT TEST 1997 FOBT 1997 SIGMOIDOSCOPY 1997 VIRTUAL COLONOSCOPY 1997 ZOSTER VACCINES (1 of 2) 2002 RSV VACCINE (1 - Risk 60-74 years 1-dose series) 2012 CREATININE LEVEL 07/20/2023 07/20/2022, 07/2022, 05/13/2020, Additional history exists POTASSIUM LEVEL 07/20/2023 07/20/2022, 12/04, 05/13/2020, Additional history exists DIABETIC EYE EXAM 07/01/2024 07/01/2023, 07/01/2023 COVID-19 VACCINE ( season) 2024 05/11/2024, 07/23/2023, 06/29/2022, Additional history exists BLOOD PRESSURE 10/05/2025 04/04/2025 HEMOGLOBIN A1C 10/05/2025 04/04/2025, 033 09/2024, 09/03/2024, Additional history exists COLONOSCOPY 06/04/2030 06/04/2020 COLORECTAL CANCER SCREENING 06/04/2030 Adult Td,Tdap Booster 04/07/2032 04/07/2022, 011 PNEUMOCOCCAL VACCINES (50+ years) Completed 04/07/2022, 01/16/2014 SMOKING STATUS SCREENING (Once After 26 Yrs) Completed 04/04/2025 HEPATITIS A VACCINES Aged Out No long er eligible based on patient's age to complete this topic HIB VACCINES Aged Out No longer eligi ble based on patient's age to complete this topic MENINGOCOCCAL VACCINES (ACWY) Aged Out No longer eligible based on patient's age to complete this topic MENINGOCOCCAL VACCINES (B) Aged Out N o longer eligible based on patient's age to complete this topic Medical Devices Not on file Procedures Procedure Name Priority Date/Time Associated Diagnosis Comments POCT HEMOGLOBIN A1C Routine 04/04/2025 1 1:04 AM EDT Type 2 diabetes mellitus with hyperglycemia, without long-term current use of insulin BASIC METABOLIC PANEL Routine 07/20/2022 3:39 PM EST Type 2 diabetes mellitus with hyperglycemia, without long-term current use of insulin ENDOSCOPY, COLON 06/04/2020 8:41 AM EDT from Last 3 Months or Most Recently Relevant to Health Maintenance Results * (ABNORMAL) POCT Hemoglobin A1c (04/04/2025 11:04 AM EDT) Hemoglobin A1c 7.9(A) 4.2 - 5.6 % [facility] Other 04/04/2025 11:0 4 AM EDT Ariadna Pena CNP POINT OF CARE TEST ORDERABLES Final Result Performing Organization Address [facility]/ZIP Co de Phone Number [address] [address], [facility] * (ABNORMAL) Basic metabolic panel (07/20/2022 3:39 PM EST) SODIUM 136 133 - 146 mmol/L [facility] CHLORIDE 100 96 - 108 mmol/L [facility] POTASSIUM 4.4 3.3 - 5.1 mmol/L [facility] CO2 22 21 - 35 mmol/L [facility] BUN 26(H) 6 - 19 mg/dL [facility] CREATININE 0.70 0.5 - 1.5 mg/dL [facility] GLUCOSE 183(H) 70 - 99 mg/dL [facility] CALCIUM 10.3 8.4 - 10.3 mg/dL [facility] EGFR 99 >59 mL/min/1.7 3m2 [facility] Comment:Estimated glomerular filtration rate calculated using the CKD-EPI refit equation. ANION GAP 18 10 - 20 mmol/L [facility] Blood 07/20/2022 3:39 PM EST 07/20/2022 3:46 PM EST Ariadna Pena CNP LAB BLOOD ORDERABLES Final Re sult Performing Organization Address City/[facility]/[place] [address] * ENDOSCOPY, COLON (06/04/2020 8:41 AM EDT) Narrative Transcriptions Gamal Capellan MD - 06/04/2020 8:41 AM EDT Patient Name: Pierreheather Sauceda Attending MD:: GAMAL CAPELLAN MD Procedure Date: 06/04/2020 8:41 AM Date of : 1950 Age: 69 Admit Type: Outpatient Gender: Male Room: [place] [address] Referring MD: Darby Sheth MD, WILMAN EUBANKS Exam Type: Colonoscopy Indications: High risk colon cancer surveillance: Personalhistory of colonic polyps, Last colonoscopy: 2011 Medications: Monitored Anesthesia Care Procedure: Informed consent was obtained from the patient after discussion of the indications, limitations, alternatives, benefits, and risks of the procedure. Risks specifically discussed include but are not limited to medication reactions, missed lesions, bleeding, perforation, or the need for emergentsurgery. Throughout the procedure, the patient's bloodpressure, pulse, end-tidal CO2, and oxygen saturations were monitored continuously. The Olympus adult variable colonoscope [id number] #1was introduced through the anus and advanced to the terminal ileum. The colonoscopy was performedwithout difficulty. The patient tolerated the procedurewell. The quality of the bowel preparation was good. Complications: No immediate complications. Estimated blood loss:None. Findings: The perianal and digital rectal examinations were normal. Two sessile polyps were found in the transversecolon. The polyps were 4 mm in size. These polyps wereremoved with a cold snare. Resection and retrieval were complete. Multiple small-mouthed diverticula were found in the sigmoid colon. The rectum, recto-sigmoid colon, sigmoid colon, descending colon, splenic flexure, hepatic flexure, ascending colon, cecum, appendiceal orifice,ileocecal valve, ileum, rectum (on retroflexion) and ascending colon (on retroflexion) appeared normal. Impression: - Two 4 mm polyps in the transverse colon, removedwith a cold snare. Resected and retrieved. - Diverticulosis in the sigmoid colon. - The rectum, recto-sigmoid colon, sigmoid colon, descending colon, splenic flexure, hepatic flexure, ascending colon, cecum, appendiceal orifice,ileocecal valve and terminal ileum are normal. Recommendation: - Discharge patient to home. - Resume previous diet. - Continue present medications. - Await pathology results. - Repeat colonoscopy for surveillance based on pathology results. GAMAL CAPELLAN MD 06/04/2020 9:12:59 AM This report has been signed electronically. Number of Addenda: 0 Note Initiated On: 06/04/2020 8:41 AM Procedure Code(s): --- Professional --- 96491, Colonoscopy, flexible; with removal of tumor(s), polyp(s), or other lesion(s) by snare technique --- Technical --- 00373, Colonoscopy, flexible; with removal of tumor(s), polyp(s), or other lesion(s) by snare technique Diagnosis Code(s): --- Professional --- Z86.010, Personal history of colonic polyps D12.3, Benign neoplasm of transverse colon (hepatic flexure or splenic flexure) K57.30, Diverticulosis of large intestine without perforation or abscess without bleeding --- Technical --- Z86.010, Personal history of colonic polyps D12.3, Benign neoplasm of transverse colon (hepatic flexure or splenic flexure) K57.30, Diverticulosis of large intestine without perforation or abscess without bleeding CPT copyright 2018 [employer]. All rights reserved. The codes documented in this report are preliminary and upon tyre builder reviewmay be revised to meet current compliance requirements. Procedure Date: 06/04/2020 8:41:36 AM [address] [place] [address] Darby Sheth MD GI PROCEDURE ORDERABLES Fin al Result from Last 3 Months or Most Recently Relevant to Health Maintenance Insurance MEDICARE PART A & B [employer] MEDIC[employer] ENHANCE SUPPLEMENT MEDICARE PART A & B [facility] MEDICARE ENHANCE SUPPLEMENT [address] [place] [id number] MEDICARE PART A & B [facility] MEDICARE ENHANCE SUPPLEMENT [address] [place] [id number] MEDICARE PART A & B [facility] MEDICARE ENHANCE SU[address]LEMENT [address] [place] [address] MEDICARE PART A & B [facility] MEDICARE ENHANCE SUPPLEMENT MEDICARE PART A & [place] [address] MEDICARE ENHANCE SUPPLEMENT MEDICARE PART A & B [facility] MEDICARE ENHANCE SUPPLEMENT MEDICARE PART A & B [employer] MED[employer] ENHANCE SUPPLEMENT MEDICARE PART A & B [employer] MED[employer] ENHANCE SUPPLEMENT Care Teams Resource Center Teacher Relationship Specialty Start Date End Date Batsheva Hamilton MD [address] [place] [address] PCP - General Internal Medicine 08/16/23 Additional Source Comments The information contained in this document represents components of the legal health record. It is not the complete legal health record.[facility]
[2025-04-26 10:12] LABS: MANUAL DIFF FLAG NO
[2025-04-26 10:15] LABS: Hematocrit 42.4 % (42.0-52.0); Hemoglobin 14.8 g/dl (14.0-18.0); Imm Gran Abs Auto 0.04 X10*3/uL (0.00-0.03); Imm Gran Pct Auto 0.5 % (0.0-0.4); Lymphocytes Absolute Auto 3.1 X10*3/uL (1.2-4.9); Mean Corpuscular HGB Conc 34.9 g/dl (31.0-36.0); Mean Corpuscular Hemoglobin 31.8 pg (27.0-33.0); Mean Corpuscular Volume 91.0 fL (80.0-98.0); NRBC Abs Auto 0.000 X10*3/uL (0.0-0.012); NRBC Pct Auto 0.0 /100WBC (0.0-0.2); Platelet Count 273 X10*3/uL (160-400); Red Blood Count 4.66 X10*6/uL (4.60-5.80); White Blood Count 7.8 X10*3/uL (4.8-10.8)
[2025-04-26 10:33] LABS: Hemoglobin A1C 243.8742 umol/L; Total Hemoglobin (HGBA1C) 3828.7652 umol/L
[2025-04-26 11:28] LABS: Alanine Aminotransferase 21 U/L (0-40); Albumin Level 4.8 g/dL (3.5-5.0); Alkaline Phosphatase 65 U/L (39-117); Anion Gap 14 (12-20); Aspartate Amino Transferase 23 U/L (5-37); Blood Urea Nitrogen 20 mg/dL (9-16); Calcium 10.6 mg/dL (8.4-10.2); Carbon Dioxide 25 mmol/L (22-29); Chloride 107 mmol/L (96-108); Estimated Glomerular Filt Rate > 60; Potassium 4.1 mmol/L (3.3-5.1); Sodium 142 mmol/L (135-145); Total Protein 7.4 g/dL (6.5-8.0)
== END 2025-04-26 08:57 | disposition home or self-care (01) ==
LOC: HO.HMGCLDS 08:56
PROVIDERS: PCP Internal Medicine; Visit Provider Internal Medicine
DX: E11.9 Type 2 diabetes mellitus without complications (principal); E78.5 Hyperlipidemia, unspecified; I10 Essential (primary) hypertension
CPT/HCPCS: 36415; 80053; 83036; 85025

== ENCOUNTER 2025-04-30 12:21 | Outpatient (AMB) | payer MEDICARE, OTHER, SELFPAY ==
[2025-04-30 12:56] VITALS: BP 116/76; PULSE 75; RESP 16; TEMP 36.7; O2SAT 95; BMI 28.2
--- NOTE | 2025-04-30 12:56 | A.OFFPC_ITS ---
Vital Signs 04/30/25 12:56 Height 5 ft 7 in Weight 180 lb BMI 28.2 BP 116/76 Blood Pressure Location Lt brachial Position Sitting Respiration 16 Pulse 75 Pulse Source Pulse Oximeter Temp 98.1 F Temp Source Oral Pulse Oximetry (%) 95 Oxygen Delivery Method Room Air Intake Visit Reasons: 3 months F/u Central Office Trouble Shooter Required: No Accompanied by: Self / Same As Patient Allergies No Known Allergies Allergy (Verified 01/09/25 10:23) Medication List - Last Reconciled 04/30/25 by Batsheva Hamilton MD diabetic supplies, miscellan. DIABETIC SHOES fluticasone propionate 50 mcg/actuation sprays intranasal Jardiance (empagliflozin) 25 mg PO DAILY NS lisinopril 40 mg PO DAILY metformin 1,000 mg (2 x 500 mg) PO BID Ozempic (semaglutide) 2 mg (0.75 mL) subcut QWEEK NS pen needle, diabetic Use to inject insulin once a day NS simvastatin 40 mg PO BEDTIME Tresiba FlexTouch U-100 (insulin degludec) 35 units (0.35 mL) subcut DAILY NS Tobacco use date assessed: 01/09/25 Fall risk assessment: No Falls in past year Last assessed Fall Risk: 04/30/25 Dental Screening Dental Screen Date: 04/30/25 Did you have a dental visit in the last 12 months?: No Did you have a dental problem in the last 6 months where you did not have access to dental care?: No Was dental information given to patient?: No (Pt has dentures) HPI 3 months F/u HPI Details Patient presents for the follow-up on hypertension hyperlipidemia type 2 diabetes. He has not been compliant with ADA diet eating cakes and sweets [facility] Medical History (Updated 04/30/25 @ 15:12 by Batsheva Hamilton MD) DM type 2 (diabetes mellitus, type 2) Hyperlipemia HTN (hypertension) Surgical History (Updated 04/30/25 @ 15:12 by Batsheva Hamilton MD) Hx of colonoscopy Family History Father Diabetes Mother Diabetes Brother Diabetes Sister Diabetes Social History Housing: House Patient Tobacco Use Status: Former Tobacco user (50 years ago) e-Cigarette/Vaping Use: Never Used service: No Current occupational status: retired Cognitive needs: No Hearing needs: No Vision needs: Yes Questionnaire PHQ-9 Over the last 2 weeks, how often have you been bothered by any of the following problems? 1. Little interest or pleasure in doing things: not at all 2. Feeling down, depressed, or hopeless: not at all 3. Trouble falling or staying asleep, or sleeping too much: not at all 4. Feeling tired or having little energy: not at all 5. Poor appetite or overeating: not at all 6. Feeling bad about yourself - or that you are a failure or have let yourself or your family down: not at all 7. Trouble concentrating on things, such as reading the newspaper or watching television: not at all 8. Moving or speaking so slowly that other people could have noticed. Or the opposite - being so fidgety or restless that you have been moving around a lot more than usual: not at all 9. Thoughts that you would be better off or of hurting yourself in some way: not at all Total score: 0 Depression Screening Interpretation: Negative Depression Screening Done: Yes 27705 - PHQ-9 Billing: Yes Source: Developed by Drs. Júnior Xie, Sirena Pereyar, Omkar Howard and colleagues, with an educational celine from [employer]. Thrive Questionnaire Date Thrive assessed: 10/10/24 ALLY-7 AMB Questionnaire ALLY-7 Date ALLY - 7 assessed: 04/30/25 Feeling nervous, anxious, or on edge: 0 = Not at all Not being able to stop or control worryin = Not at all Worrying too much about different things: 0 = Not at all Trouble relaxin = Not at all Being so restless that it is hard to sit still: 0 = Not at all Becoming easily annoyed or irritable: 0 = Not at all Feeling afraid as if something awful might happen: 0 = Not at all Total ALLY-7 score (0-4 normal; 5-9 mild; 10-14 moderate; 15-21 severe): 0 Source: Developed by Sirena Lopez Kurt Kroenke and colleagues, with an educational celine from [employer]. ALLY-7 Assessment Billing ALLY-7 Assessment Tool: ALLY-7 Assessment 67535 Review of Systems Const All systems reviewed & are unremarkable except as noted in HPI and below Eyes Reports no additional complaints ENT Reports no additional complaints Card Reports no additional complaints Resp Reports no additional complaints GI Reports no additional complaints Reports no additional complaints Physical exam (Primary Care) Vital Signs: Last Vital Signs Temp 98.1 F 04/30/25 12:56 Pulse 75 04/30/25 12:56 Resp 16 04/30/25 12:56 BP 116/76 04/30/25 12:56 Pulse Ox 95 04/30/25 12:56 Oxygen Delivery Method Room Air 04/30/25 12:56 BMI result Body Mass Index 28.2 Tobacco/Smoking Status: Tobacco use Status Tobacco use date assessed 01/09/25 04/30/25 13:01 Patient Tobacco Use Status Former Tobacco user (50 04/30/25 13:01 years ago) e-Cigarette/Vaping Use Never Used 04/30/25 13:01 PHQ-9: PHQ-9 Score PHQ-9: Total score 0 04/30/25 15:15 Depression Screening Interpretation: Negative Thrive Assessment: Date of Thrive Assessment Date Thrive assessed 10/10/24 04/30/25 13:01 Const General: no acute distress HENMT Head: Yes normal to inspection Face and sinus: Yes normal facial exam Eyes General: appearance normal, both eyes and all related structures Neck Neck: Yes no lymphadenopathy and Yes supple Resp Effort & Inspection: normal respiratory effort Auscultation: clear to auscultation bilaterally Cardio Rhythm: regular rhythm Heart sounds: S1 normal heart sound present and S2 normal heart sound present GI Inspection: Yes normal to inspection Palpation (GI): Soft to palpation Percussion: Yes normal to percussion Auscultation: normal bowel sounds Coding Level of Care Code Est Pt Level 4 (35659) Diagnoses DM type 2 (diabetes mellitus, type 2) E11.9 HTN (hypertension) I10 Hyperlipemia E78.5 Additional Codes ALLY-7 Assessment Billing - ALLY-7 Assessment Tool: ALLY-7 Assessment 94233 ([id number]) PHQ-9 - 68777 - PHQ-9 Billing: Yes ([id number]) Assessment & Plan Assessment & Plan (1) DM type 2 (diabetes mellitus, type 2): Comment: > 10 years, f/u [facility] Code(s): E11.9 - Type 2 diabetes mellitus without complications Category: Medical Plan: A1c is 8.0, patient has not been compliant with ADA diet. ADA diet increase physical activity discussed with the patient. He refused to increase the dose of Tresiba. He will continue Jardiance metformin and will follow-up in 3 months with a fasting labs before (2) HTN (hypertension): Code(s): I10 - Essential (primary) hypertension Category: Medical Plan: Continue current medications (3) Hyperlipemia: Code(s): E78.5 - Hyperlipidemia, unspecified Category: Medical Plan: Continue statin Orders: Orders Hemoglobin A1c 3 Months E11.9 - Type 2 diabetes mellitus without complications, E78.5 - Hyperlipidemia, unspecified, I10 - Essential (primary) hypertension Comprehensive [place]. Panel Fast 3 Months E11.9 - Type 2 diabetes mellitus without complications, E78.5 - Hyperlipidemia, unspecified, I10 - Essential (primary) hypertension Lipid Panel 3 Months E11.9 - Type 2 diabetes mellitus without complications, E78.5 - Hyperlipidemia, unspecified, I10 - Essential (primary) hypertension Complete Blood Count Auto Diff 3 Months E11.9 - Type 2 diabetes mellitus without complications, E78.5 - Hyperlipidemia, unspecified, I10 - Essential (primary) hypertension Microalbumin, Random (w Creat) 3 Months E11.9 - Type 2 diabetes mellitus without complications, E78.5 - Hyperlipidemia, unspecified, I10 - Essential (primary) hypertension
--- OUTSIDE RECORDS SUMMARY | 2025-04-30 13:09 | XMS_ITS | Encounter Summary ---
Author Organization [facility] Address [address] [facility] [address] [place] [address] Phone Care Team Providers Care Nurse Midwife/Clinical Instructor Name Role Phone Marisol Herrera MD Primary Care Provider [phone] Marisol Herrera MD Unavailable [phone] Marisol Herrera MD Unavailable [phone] Unknown, Unknown Primary Care Provider Batsheva Light MD Primary Care Provider [phone] Marisol Herrera MD Unavailable [phone] Encounter Details Date Type Department Care Team (Late st Contact Info) Description 05/02/2018 Transcribe Orders [address] [place] [address] Marisol Herrera MD [address] [place] [address] Uncontrolled diabetes mellitus type 2 without complications, unspecified whether fdc insulin use (Primary Dx) Social History Tobacco Use Types Packs/Day Years Used Date Smoking Tobacco: Never Assessed Sex and Gender Information Value Date Recorded Sex Assigned at Not on file Legal Sex Male 9:59 PM EDT Gender Identity Not on file Sexual Orientation Not on file documented as of this encounter Plan of Treatment Upcoming Encounters Date Type Department Care Team (Late st Contact Info) Description 05/07/2025 10:00 AM EDT Nurse Only Jonnathan [facility] [address] [place] [address] Ariadna Pena, EDEN [address] [facility], 1st [place] [address] [email or web address] 09/30/2025 12:30 PM EST Office Visit [facility] [address] [place] [address] Ariadna Pena, EDEN [address] [facility], 1st [place] [address] [email or web address] documented as of this encounter Results * (ABNORMAL) Hemoglobin A1c (05/02/2018 9:13 AM EDT) HEMOGLOBIN A1C 8.3(H) 4.3 - 5.8 % [facility] Blood 05/02/2018 9:13 AM EDT 05/02/2018 9:15 AM EDT us Marisol Herrera MD LAB BLOOD ORDERABLES Final R esult Performing Organization Address City/State/[facility] Co de Phone Number [facility] [address] [place] [address] documented in this encounter Visit Diagnoses Diagnosis Uncontrolled diabetes mellitus type 2 without complications, unspecified whether oysterman insulin use- Primary documented in this encounter Care Teams Nurse Midwife/Clinical Instructor Relationship Specialty Start Date End Date Marisol Herrera MD [address] [place] [phone] PCP - General Internal Medicine 10/21/17 06/01/23 Unknown, Unknown, MD PCP - General 06/02/23 08/15/23 Batsheva Hamilton MD [facility] [address] PCP - General Internal Medicine 08/16/23 Marisol Herrera MD [address] [place] [phone] Insurance Assigned Provider 01/09/20 07/12/20 Marisol Herrera MD [address] [place] [phone] [email or web address] Insurance Assigned Provider 12/11/22 06/01/23 Marisol Herrera MD [address] [place] [phone] [email or web address] Insurance Assigned Provider 12/11/22 09/10/23 documented as of this encounter Additional Source Comments The information contained in this document represents components of the legal health record. It is not the complete legal health record.[facility]
--- OUTSIDE RECORDS SUMMARY | 2025-04-30 13:09 | XMS_ITS | Encounter Summary ---
Author Organization [facility] Address [address] [facility] [address] [place] [address] Phone Care Team Providers Care Steam Press Operator Name Role Phone Marisol Herrera MD Primary Care Provider [phone] Marisol Herrera MD Unavailable [phone] Marisol Herrera MD Unavailable [phone] Unknown, Unknown Primary Care Provider Batsheva Light MD Primary Care Provider [phone] Marisol Herrera MD Unavailable [phone] Encounter Details Date Type Department Care Team (Latest Contact Info) Description 10/21/2017 Transcribe Orders [address] [place] [address] Marisol Herrera MD [address] [place] [address] Uncontrolled type 2 diabetes mellitus with complication, without long-term current use of insulin (Primary Dx); Hyperlipidemia, unspecified hyperlipidemia type; Hypertension, unspecified type Social History Tobacco Use Types Packs/Day Years [...] 05/07/2025 10:00 AM EDT Nurse Only Jonnathan [facility] [address] [place], [place] [id number] Ariadna Pena, EDEN [address] [facility], 1st [place] [address] 09/30/2025 12:30 PM EST Office Visit [facility] [address] [place] [address] Ariadna Pena, SEX CRIMES DETECTIVE [address] [facility], 1st [place] [address] documented as of this encounter Results * Microalbumin/creatinine ratio, random urine (10/21/2017 8:48 AM EST) URINE MICROALBUMIN 0.2 0 - 2.3 mg/dL [facility] URINE CREATININE 71 mg/dL [facility] MICROALB/CRE RATIO NOT CALCULATED 0 - 20 mg/g Cre [facility] Comment:due to Microalbumin <1.2 Urine (Urine) 10/21/2017 8:4 8 AM EST 10/21/2017 8:52 AM EST us Marisol Herrera MD URINE ORDERABLES Final Resul t Performing Organization Address City/State/[facility] Co de Phone Number [facility] [address] [place] [address] * (ABNORMAL) Basic metabolic panel (10/21/2017 8:48 AM EST) SODIUM 136 133 - 146 mmol/L [facility] CHLORIDE 99 96 - 108 mmol/L [facility] POTASSIUM 4.6 3.3 - 5.1 mmol/L [facility] CO2 25 21 - 35 mmol/L [facility] BUN 20(H) 6 - 19 mg/dL [facility] CREATININE 0.60 0.5 - 1.5 mg/dL [facility] GLUCOSE 198(H) 70 - 99 mg/dL [facility] CALCIUM 9.9 8.4 - 10.3 mg/dL [facility] EGFR >60 60 - 1000 mL/min/1.7 3m2 [facility] Comment:Abnormal if <60. If patient is -[place], multiply the result by 1.21. ANION GAP 17 10 - 20 mmol/L [facility] Blood 10/21/2017 8:48 AM EST 10/21/2017 8:52 AM EST Marisol Herrera MD LAB BLOOD ORDERABLES Final R esult Performing Organization Address City/[facility]/ZIP Co de Phone Number [address] [address] * Direct LDL (10/21/2017 8:48 AM EST) DIRECT LDL 73 0 - 129 mg/dL [facility] Comment: (NOTE) INTERPRETIVE INFORMATION: LDL Cholesterol, Direct CHD Risk Factors: +1 Age: Men, 45 years and older Women, 55 years and older or premature menopause without estrogen therapy +1 Family history of premature CHD +1 Current smoking +1 Hypertension +1 Diabetes mellitus +1 Low HDL Cholesterol: 39 mg/dL or less -1 High HDL Cholesterol: 60 mg/dL or greater LDL Cholesterol: Therapeutic goal 99 mg/dL or less if CHD is present(Optional 69 mg/dL or less) 129 mg/dL or less if no CHD and two or more risk factors 159 mg/dL or less if no CHD (Circulation 2004; 110:227-39) Access complete set of age- and/or gender-specific reference intervals for this test in the [employer] Laboratory Test Directory ([employer]). Performed by [employer], [address] [place] [id number] [email or web address] Jose [email or web address] MD - Lab. Director Test Performed by: [employer] [facility] [address] [place] [address] Blood 10/21/2017 8:48 AM EST 10/21/2017 8:51 AM EST us Marisol Herrera MD LAB BLOOD ORDERABLES Final R esult [facility] * (ABNORMAL) Hemoglobin A1c (10/21/2017 8:48 AM EST) HEMOGLOBIN A1C 9.9(H) 4.3 - 5.8 % [facility] Blood 10/21/2017 8:48 AM EST 10/21/2017 8:52 AM EST us Marisol Herrera MD LAB BLOOD ORDERABLES Final R esult [facility] [address] [place] [address] documented in this encounter Visit Diagnoses Diagnosis Uncontrolled type 2 diabetes mellitus with complication, without long-term current use of insulin- Primary Hyperlipidemia, unspecified hyperlipidemia type Hypertension, unspecified type documented in this encounter Care Teams Steam Press Operator Relationship Specialty Start Date End Date Marisol Herrera MD [address] [place] [address] [email or web address] PCP - General Internal Medicine 10/21/17 06/01/23 Unknown, Unknown, MD PCP - General 06/02/23 08/15/23 Batsheva Hamilton MD [address] [facility] [place] [address] PCP - General Internal Medicine 08/16/23 Marisol Herrera MD [address] [place] [address] [email or web address] Insurance Assigned Provider 01/09/20 07/12/20 Marisol Herrera MD [address] [place] [phone] Insurance Assigned Provider 12/11/22 06/01/23 Marisol Herrera MD [address] [place] [address] [email or web address] Insurance Assigned Provider 12/11/22 09/10/23 documented as of this encounter Additional Source Comments The information contained in this document represents components of the legal health record. It is not the complete legal health record.[facility]
--- OUTSIDE RECORDS SUMMARY | 2025-04-30 13:09 | XMS_ITS | Encounter Summary ---
Author Organization [facility] Address [address] [facility] [address] [place] [address] Phone Care Team Providers Care Offset Lithographic Press Setter Name Role Phone Marisol Herrera MD Primary Care Provider [phone] Marisol Herrera MD Unavailable [phone] Unknown, Unknown Primary Care Provider Batsheva Light MD Primary Care Provider [phone] Marisol Herrera MD Unavailable [phone] Encounter Details Date Type Department Care Team (Late Contact Info) Description 11/27/2021 Transcribe Orders [facility] [address] [place] [address] Marisol Herrera MD [address] [place] [address] [email or web address] Social History Tobacco Use Types Packs/Day Years Used Date Smoking Tobacco: Never Smokeless Tobacco: Never Alcohol Use Standard Drinks/Week Comments Yes 0 (1 standard drink = 0.6 oz pur e alcohol) occasional Sex and Gender Information Value Date Recorded Sex Assigned at Not on file Legal Sex Male 9:59 PM EDT Gender Identity Not on file Sexual Orientation Not on file documented as of this encounter Plan of Treatment Upcoming Encounters Date Type Department Care Team (Late Contact Info) Description 05/07/2025 10:00 AM EDT Nurse Only Jonnathan [facility] [address] [place] [address] Ariadna Pena, EDEN 22 [facility], 1st [place] [address] 09/30/2025 12:30 PM EST Office Visit [facility] [address] [place] [address] Ariadna Pena, EDEN [address] [facility], [address] [place] [address] documented as of this encounter Visit Diagnoses Not on filedocumented in this encounter Care Teams Offset Lithographic Press Setter Relationship Specialty Start Date End Date Marisol Herrera MD [address] [place] [id number] PCP - General Internal Medicine 10/21/17 06/01/23 Unknown, Unknown, MD PCP - General 06/02/23 08/15/23 Batsheva Hamilton MD [address] [place] [address] [place] [address] PCP - General Internal Medicine 08/16/23 Marisol Herrera MD [address] [place] [phone] Insurance Assigned Provider 12/11/22 06/01/23 Marisol Herrera MD [address] [place] [phone] Insurance Assigned Provider 12/11/22 09/10/23 documented as of this encounter Additional Source Comments The information contained in this document represents components of the legal health record. It is not the complete legal health record.[facility]
--- OUTSIDE RECORDS SUMMARY | 2025-04-30 13:09 | XMS_ITS | Encounter Summary ---
Author Organization [facility] Address [address] [facility] [address] [place] [address] Phone Care Team Providers Care Drop Hammer Setter Up Name Role Phone Marisol Hererra MD Primary Care Provider [phone] Marisol Herrera MD Unavailable [phone] Unknown, Unknown Primary Care Provider Batsheva Light MD Primary Care Provider [phone] Marisol Herrera MD Unavailable [phone] Encounter Details Date Type Department Care Team (Latest Contact Info) Description 09/11/2020 Transcribe Orders [address] [place] [address] Marisol Herrera MD [address] [place] [address] [email or web address] Uncontrolled type 2 diabetes mellitus with hyperglycemia (Primary Dx) Social History Tobacco Use Types [...] 05/07/2025 10:00 AM EDT Nurse Only Jonnathan [facility] [address] [place] [address] Ariadna Pena, EDEN 22 [facility], 1st [address] [place], [place] [phone] 09/30/2025 12:30 PM EST Office Visit [facility] [address] [place] [address] Ariadna Pena, EDEN [address] [facility], 1st [place] [address] [email or web address] documented as of this encounter Results * (ABNORMAL) Hemoglobin A1c (09/11/2020 8:51 AM EST) HEMOGLOBIN A1C 8.3(H) 4.3 - 5.8 % [facility] Blood 09/11/2020 8:51 AM EST 09/11/2020 8:54 AM EST us Marisol Herrera MD LAB BLOOD ORDERABLES Final R esult Performing Organization Address City/State/[facility] Co de Phone Number [facility] [address] [place] [address] documented in this encounter Visit Diagnoses Diagnosis Uncontrolled type 2 diabetes mellitus with hyperglycemia- Primary documented in this encounter Care Teams Drop Hammer Setter Up Relationship Specialty Start Date End Date Marisol Herrera MD [address] [place] [address] PCP - General Internal Medicine 10/21/17 06/01/23 Unknown, Unknown, PCP - General 06/02/23 08/15/23 Batsheva Hamilton MD [address] [facility] [place] [address] PCP - General Internal Medicine 08/16/23 Marisol Herrera MD [address] [place] [phone] Insurance Assigned Provider 12/11/22 06/01/23 Marisol Herrera MD [address] [place] [address] [email or web address] Insurance Assigned Provider 12/11/22 09/10/23 documented as of this encounter Additional Source Comments The information contained in this document represents components of the legal health record. It is not the complete legal health record.[facility]
--- OUTSIDE RECORDS SUMMARY | 2025-04-30 13:09 | XMS_ITS | Encounter Summary ---
Author Organization [facility] Address [address] [facility] [address] [place] [address] Phone Care Team Providers Care Youth Teacher Name Role Phone Marisol Herrera MD Primary Care Provider [phone] Marisol Herrera MD Unavailable [phone] Marisol Herrera MD Unavailable [phone] Unknown, Unknown Primary Care Provider Batsheva Light MD Primary Care Provider [phone] Marisol Herrera MD Unavailable [phone] Encounter Details Date Type Department Care Team (Late st Contact Info) Description 02/21/2018 Transcribe Orders [address] [place] [address] Marisol Herrera MD 25 [place] [address] 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) Social History Tobacco Use Types [...] Nurse Only Jonnathan Garland [facility] [address] [place] [address] Ariadna Pena, EDEN 22 [facility], 1st [place] [address] 09/30/2025 12:30 PM EST Office Visit [facility] [address] [place] [address] Ariadna Pena, EDEN 22 [facility], 1st [place] [address] [email or web address] documented as of this encounter Results * (ABNORMAL) Hemoglobin A1c (02/21/2018 10:11 AM EDT) HEMOGLOBIN A1C 10.1(H) 4.3 - 5.8 % [facility] Blood 02/21/2018 10:1 1 AM EDT 02/21/2018 10:12 AM EDT us Marisol Herrera MD LAB BLOOD ORDERABLES Final R esult Performing Organization Address City/State/[facility] Co de Phone Number [facility] [address] [place] [address] documented in this encounter Visit Diagnoses Diagnosis 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- Primary Type II or unspecified type diabetes mellitus with renal manifestations, uncontrolled documented in this encounter Care Teams Youth Teacher Relationship Specialty Start Date End Date Marisol Herrera MD [address] [place] [address] [email or web address] PCP - General Internal Medicine 10/21/17 06/01/23 Unknown, Unknown, PCP - General 06/02/23 08/15/23 Batsheva Hamilton MD [facility] [place] [address] PCP - General Internal Medicine 08/16/23 Marisol Herrera MD [address] [place] [address] [email or web address] Insurance Assigned Provider 01/09/20 07/12/20 Marisol Herrera MD [address] [place] [address] [email or web address] Insurance Assigned Provider 12/11/22 06/01/23 Marisol Herrera MD [address] [place] [address] [email or web address] Insurance Assigned Provider 12/11/22 09/10/23 documented as of this encounter Additional Source Comments The information contained in this document represents components of the legal health record. It is not the complete legal health record.[facility]
--- OUTSIDE RECORDS SUMMARY | 2025-04-30 13:09 | XMS_ITS | Clinical Summary ---
Author Organization [facility] Address [address] [facility] [address] [place] [address] Phone Care Team Providers Care Brownfield Redevelopment Specialist Name Role Phone Batsheva Hamilton MD Primary Care Provider [phone] Allergies No known active allergies Medications cloNIDine [...] in 2 weeks to drop off at credit front office developer or follow up appointment. Assessment & Plan [...] in 2 weeks to drop off at credit front office developer or follow up appointment. Assessment & Plan [...] in 2 weeks to drop off at credit front office developer or follow up appointment. Assessment & Plan [...] weeks on 12/21/22 to drop off at credit front office developer or follow up appointment. 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 Assessment & Plan [...] 10:45 AM EDT Nurse Only [facility] [address] [place] [address] [place] [address] Ariadna Pena CNP 04/04/2025 10:40 AM EDT Office Visit [address] [place] [address] Ariadna Pena CNP Type 2 diabetes mellitus with hyperglycemia, without long-term current use of insulin (Primary Dx); Primary hypertension; Hyperlipidemia, unspecified hyperlipidemia type 04/04/[address] [place] [address] Ariadna Pena CNP Labs 04/03/2025 10:00 AM EDT Nurse Only [facility] [place] [address] Veto Aggarwal DO Type 2 diabetes mellitus with hyperglycemia, without long-term current use of insulin (Primary Dx) 03/25/2025 11:00 AM EDT Nurse Only [facility] [place] [address] Veto Aggarwal DO 03/14/2025 10:30 AM EDT Nurse Only [address] [place] [address] Elda Joseph MD 03/04/2025 10:30 AM EDT Nurse Only [facility] [place] [address] Elda Joseph MD Type 2 diabetes mellitus with hyperglycemia, without long-term current use of insulin (Primary Dx) 03/04/2025 Telephone [facility] [address] [place] [address] Elda Joseph MD 02/20/2025 10:30 AM EDT Nurse Only [facility] [address] [place] [address] Elda Joseph MD Type 2 diabetes mellitus with hyperglycemia, without long-term current use of insulin (Primary Dx) 02/11/2025 2:30 PM EDT Nurse Only [facility] [address] [place] [address] [place] [address] Elda Joseph MD 01/30/2025 11:30 AM EDT Nurse Only [address] [place] [address] Elda Joseph MD from Last 3 Months Immunizations Immunization Administration [...] Description 05/07/2025 10:00 AM EDT Nurse Only [facility] [address] [place] [address] Ariadna Pena, FLOOR GRINDER [address] [place] [address] 09/30/2025 12:30 PM EST Office Visit [facility] [address] [place] [address] Ariadna Pena, FLOOR GRINDER [address] [place] [address] Health Maintenance Due Date Last Done Comments [...] PRESSURE 10/05/2025 04/04/2025 HEMOGLOBIN A1C 10/05/2025 04/04/2025, 11/05, 09/03/2024, Additional history exists COLONOSCOPY 06/04/2030 06/04/2020 [...] Hemoglobin A1c 7.9(A) 4.2 - 5.6 % [facility] Other 04/04/2025 11:0 4 AM EDT Ariadna Pena CNP POINT OF CARE TEST ORDERABLES Final Result Performing Organization Address [facility]/ZIP Co de Phone Number [address] [address], [facility] * (ABNORMAL) Basic metabolic panel (07/20/2022 3:39 PM EST) SODIUM 136 133 - 146 mmol/L [facility] CHLORIDE 100 96 - 108 mmol/L [facility] POTASSIUM 4.4 3.3 - 5.1 mmol/L [facility] CO2 22 21 - 35 mmol/L [facility] BUN 26(H) 6 - 19 mg/dL [facility] CREATININE 0.70 0.5 - 1.5 mg/dL [facility] GLUCOSE 183(H) 70 - 99 mg/dL [facility] CALCIUM 10.3 8.4 - 10.3 mg/dL [facility] EGFR 99 >59 mL/min/1.7 3m2 [facility] Comment:Estimated glomerular filtration rate calculated using the CKD-EPI refit equation. ANION GAP 18 10 - 20 mmol/L [facility] Blood 07/20/2022 3:39 PM EST 07/20/2022 3:46 PM EST Ariadna Pena CNP LAB BLOOD ORDERABLES Final Re sult [address] [address] * ENDOSCOPY, COLON (06/04/2020 8:41 AM EDT) Narrative Transcriptions Gamal Capellan MD - 06/04/2020 8:41 AM EDT Patient Name: Pierre Komal Attending MD:: GAMAL CAPELLAN MD Procedure Date: 06/04/2020 8:41 AM Date of : 1950 Age: 69 Admit Type: Outpatient Gender: Male Room: [place] [address] Referring MD: Darby Sheth MD, WILMAN EUBANKS [...] monitored continuously. The Olympus adult variable colonoscope [id number] #1was introduced through the anus and advanced [...] 8:41 AM Procedure Code(s): --- Professional --- 78770, Colonoscopy, flexible; with removal of tumor(s), polyp(s), or other lesion(s) by snare technique --- Technical --- 49839, Colonoscopy, flexible; with removal of tumor(s), polyp(s), [...] or abscess without bleeding CPT copyright 2018 [employer]. All rights reserved. The codes documented in this report are preliminary and upon photograph inspector reviewmay be revised to meet current compliance requirements. Procedure Date: 06/04/2020 8:41:[address] [place] [address] us Darby Sheth MD GI PROCEDURE ORDERABLES Fin al Result from Last 3 Months or Most Recently Relevant to Health Maintenance Insurance MEDICARE PART A & B MEDICARE ENHANCE SUPPLEMENT MEDICARE PART A & B [facility] MEDICARE ENHANCE SUPPLEMENT [facility] [place] [place] Address: [address] [place] [address] MEDICARE PART A & B Member Subscriber Plan / Payer (Ef fective 2020-Present) Name:Pierre Sauceda Member ID:[id number] Relation to Subscriber:Self Name:Komal Pierre Subscriber ID:[id number] Payer ID:[id number] Group ID:Not on file Type:Medicare Address: [email or web address] [facility] [address] [address] [facility] MEDICARE ENHANCE SUPPLEMENT [facility] [place] [place] Address: [facility] [id number] [place] [address] MEDICARE PART A & B [facility] MEDICARE ENHANCE SUPPLEMENT 1 [place] [address] MEDICARE PART A & B [facility] MEDICARE ENHANCE SUPPLEMENT 1 [place] [address] MEDICARE PART A & B [facility] MEDICARE ENHANCE SU[address]LEMENT [address] [place] [address] MEDICARE PART A & B [facility] MEDICARE ENHANCE SUPPLEMENT [facility] [place] [place] Address: [facility] [id number] [place] [address] MEDICARE PART A & [place] [address] MEDICARE ENHANCE SUPPLEMENT MEDICARE PART A & B [facility] MEDICARE ENHANCE SUPPLEMENT Care Teams Brownfield Redevelopment Specialist Relationship Specialty Start Date End Date Batsheva Hamilton MD [address] [place] [address] [place] [address] PCP - General Internal Medicine 08/16/23 Additional Source Comments The information contained in this document represents components of the legal health record. It is not the complete legal health record.[facility]
--- OUTSIDE RECORDS SUMMARY | 2025-04-30 13:09 | XMS_ITS | Encounter Summary ---
Author Organization [facility] Address [address] [facility] [address] [place] [address] Phone Care Team Providers Care Sap Portal Architect Name Role Phone Marisol Herrera MD Primary Care Provider [phone] Marisol Herrera MD Unavailable [phone] Marisol Herrera MD Unavailable [phone] Unknown, Unknown Primary Care Provider Batsheva Light MD Primary Care Provider [phone] Marisol Herrera MD Unavailable [phone] Encounter Details Date Type Department Care Team (Latest Contact Info) Description 08/21/2018 Transcribe Orders [address] [place] [address] Marisol Herrera MD 25 [place] [address] Uncontrolled type 2 diabetes mellitus with hyperglycemia [...] 10:00 AM EDT Nurse Only Jonnathan Garland [facility] [address] [place] [address] Ariadna Pena, EDEN 22 [facility], 1st [place] [address] 09/30/2025 12:30 PM EST Office Visit [facility] [address] [place] [address] Ariadna Pena, SUPPLY CHAIN SYSTEMS MANAGER [address] [facility], 1st [place] [address] [email or web address] documented as of this encounter Results * (ABNORMAL) Hemoglobin A1c (08/21/2018 7:48 AM EST) HEMOGLOBIN A1C 8.4(H) 4.3 - 5.8 % [facility] Blood 08/21/2018 7:48 AM EST 08/21/2018 7:50 AM EST us Marisol Herrera MD LAB BLOOD ORDERABLES Final R esult Performing Organization Address City/State/[facility] Co de Phone Number [facility] 30 [place] [address] documented in this encounter Visit Diagnoses Diagnosis Uncontrolled type 2 diabetes mellitus with hyperglycemia- Primary documented in this encounter Care Teams Sap Portal Architect Relationship Specialty Start Date End Date Marisol Herrera MD [address] [place] [address] [email or web address] PCP - General Internal Medicine 10/21/17 06/01/23 Unknown, Unknown, MD PCP - General 06/02/23 08/15/23 Batsheva Hamilton MD [facility] [place] [address] PCP - General Internal Medicine 08/16/23 [place] [address] [email or web address] Insurance Assigned Provider 01/09/20 07/12/20 Marisol Herrera MD [address] [place] [phone] [email or web address] Insurance Assigned Provider 12/11/22 06/01/23 Marisol Herrera MD [address] [place] [address] [email or web address] Insurance Assigned Provider 12/11/22 09/10/23 documented as of this encounter Additional Source Comments The information contained in this document represents components of the legal health record. It is not the complete legal health record.[facility]
--- OUTSIDE RECORDS SUMMARY | 2025-04-30 13:09 | XMS_ITS | Encounter Summary ---
Author Organization [facility] Address [address] [facility] [address] [place] [address] Phone Care Team Providers Care Turbo Operator Name Role Phone Marisol Herrera MD Primary Care Provider [phone] Marisol Herrera MD Unavailable [phone] Marisol Herrera MD Unavailable [phone] Unknown, Unknown Primary Care Provider Batsheva Light MD Primary Care Provider [phone] Marisol Herrera MD Unavailable [phone] Encounter Details Date Type Department Care Team (Late st Contact Info) Description 06/04/2020 Procedure Pass [facility] Endoscopy Admitting Dept Virtual Department [address] [place] [address] Social History Tobacco Use Types Packs/Day Years [...] AM EDT Nurse Only Jonnathan [facility] [address] [place] [address] Ariadna Pena CNP 22 [facility], 1st [place] [address] 09/30/2025 12:30 PM EST [facility] [address] [place] [address] Ariadna Pena, TANK MAKER WOOD [address] [facility], 1st [place] [address] documented as of this encounter Visit Diagnoses Not on filedocumented in this encounter Care Teams Turbo Operator Relationship Specialty Start Date End Date Marisol Herrera MD [address] [place] [address] PCP - General Internal Medicine 10/21/17 06/01/23 Unknown, Miles, MD PCP - General 06/02/23 08/15/23 Batsheva Hamilton MD [facility] [place] [address] PCP - General Internal Medicine 08/16/23 Marisol Herrera MD 25 [place] [address] Insurance Assigned Provider 01/09/20 07/12/20 Marisol Herrera MD [address] [place] [address] Insurance Assigned Provider 12/11/22 06/01/23 Marisol Herrera MD 25 [place] [address] Insurance Assigned Provider 12/11/22 09/10/23 documented as of this encounter Additional Source Comments The information contained in this document represents components of the legal health record. It is not the complete legal health record.[facility]
--- OUTSIDE RECORDS SUMMARY | 2025-04-30 13:09 | XMS_ITS | Encounter Summary ---
Author Organization [facility] Address [address] [facility] [address] [place] [address] Phone Care Team Providers Care Trim Technician Name Role Phone Marisol Herrera MD Primary Care Provider [phone] Marisol Herrera MD Unavailable [phone] Marisol Herrera MD Unavailable [phone] Unknown, Unknown Primary Care Provider Batsheva Light MD Primary Care Provider [phone] Marisol Herrera MD Unavailable [phone] Encounter Details Date Type Department Care Team (Latest Contact Info) Description 02/22/2019 Transcribe Orders [facility] [address] [place] [address] [place] [address] Marisol Herrera MD 25 [place] [address] Uncontrolled type 2 diabetes mellitus with hypoglycemia, unspecified hypoglycemia coma status (Primary Dx); Hyperlipidemia, unspecified hyperlipidemia type Social History Tobacco Use Types Packs/Day [...] AM EDT Nurse Only Jonnathan [facility] [address] [place] [address] Ariadna Pena, EDEN 22 [facility], 1st Floor [place], [place] [phone] [email or web address] 09/30/2025 12:30 PM EST Office Visit [facility] [address] [place] [address] Ariadna Pena CNP 22 [facility], 1st [place] [address] [email or web address] documented as of this encounter Results * Microalbumin/creatinine ratio, random urine (02/22/2019 9:11 AM EDT) URINE MICROALBUMIN <1.2 0 - 2.3 mg/dL [facility] URINE CREATININE 93 mg/dL [facility] MICROALB/CRE RATIO NOT CALCULATED 0 - 20 mg/g Cre [facility] Comment:due to Microalbumin <1.2 Urine (Urine) 02/22/2019 9:1 1 AM EDT 02/22/2019 9:17 AM EDT us Marisol Herrera MD URINE ORDERABLES Final Resul t [facility] [address] [place] [address] * (ABNORMAL) Lipid panel (02/22/2019 9:11 AM EDT) HDL 45 mg/dL [facility] Comment: Interpretation <40 mg/dL: Low HDL cholesterol (major risk factor for CHD) Greater than or equal to 60 mg/dL: High HDL cholesterol ( negative risk factor for CHD) HDL - cholesterol is affected by a number of factors, e.g. smoking, excerise, hormones, sex and age. CHOLESTEROL 173 0 - 240 mg/dL [facility] TRIGLYCERIDES 215(H) 30 - 160 mg/dL [facility] LDL 85 50 - 129 mg/dL [facility] Comment: LDL levels in terms of risk for coronary heart disease: <100 mg/dL: Optimal 100-129 mg/dL: Near or above optimal 130-159 mg/dL: Borderline high 160-189 mg/dL: High >190 mg/dL: Very High CARDIAC RISK RATIO 3.8 3.4 - 5.0 C [facility] Blood 02/22/2019 9:11 AM EDT 02/22/2019 9:18 AM EDT us Marisol Herrera MD LAB BLOOD ORDERABLES Final R esult Performing Organization Address City/[facility]/ZIP Co de Phone Number [address] [address] * (ABNORMAL) Hemoglobin A1c (02/22/2019 9:11 AM EDT) HEMOGLOBIN A1C 8.4(H) 4.3 - 5.8 % [facility] Blood 02/22/2019 9:11 AM EDT 02/22/2019 9:18 AM EDT Marisol Herrera MD LAB BLOOD ORDERABLES Final R esult Performing Organization Address City/[facility] Co de Phone Number [address] [address] * (ABNORMAL) Comprehensive metabolic panel (02/22/2019 9:11 AM EDT) SODIUM 139 133 - 146 mmol/L [facility] POTASSIUM 4.5 3.3 - 5.1 mmol/L [facility] CHLORIDE 102 96 - 108 mmol/L [facility] CO2 23 21 - 35 mmol/L [facility] BUN 13 6 - 19 mg/dL [facility] CREATININE 0.70 0.5 - 1.5 mg/dL [facility] GLUCOSE 221(H) 70 - 99 mg/dL [facility] ALBUMIN 4.1 3.9 - 4.8 g/dL [facility] TOTAL PROTEIN 6.9 6.5 - 8.0 g/dL [facility] CALCIUM 10.2 8.4 - 10.3 mg/dL [facility] ALKALINE PHOSPHATASE 68 39 - 117 U/L [facility] TOTAL BILIRUBIN 0.7 0.0 - 1.2 mg/dL [facility] AST 18 0 - 37 U/L [facility] ALT 13 0 - 40 U/L [facility] GLOBULIN 2.8 1 - 4.8 g/dL [facility] EGFR 98 >59 mL/min/1.7 3m2 [facility] Comment:If patient is black, multiply result by 1.159. Estimated glomerular filtration rate calculated using the CKD-EPI equation. ANION GAP 19 10 - 20 mmol/L [facility] Blood 02/22/2019 9:11 AM EDT 02/22/2019 9:18 AM EDT us Marisol Herrera MD LAB BLOOD ORDERABLES Final R esult [facility] [address] [place] [address] documented in this encounter Visit Diagnoses Diagnosis Uncontrolled type 2 diabetes mellitus with hypoglycemia, unspecified hypoglycemia coma status- Primary Hyperlipidemia, unspecified hyperlipidemia type documented in this encounter Care Teams Trim Technician Relationship Specialty Start Date End Date Marisol Herrera MD [address] [place] [address] PCP - General Internal Medicine 10/21/17 06/01/23 Unknown, Unknown, MD PCP - General 06/02/23 08/15/[address] [facility] [place] [address] PCP - General Internal Medicine 08/16/23 [place] [address] Insurance Assigned Provider 01/09/20 07/12/20 Marisol Herrera MD [address] [place] [phone] Insurance Assigned Provider 12/11/22 06/01/23 Marisol Herrera MD [address] [place] [address] [email or web address] Insurance Assigned Provider 12/11/22 09/10/23 documented as of this encounter Additional Source Comments The information contained in this document represents components of the legal health record. It is not the complete legal health record.[facility]
--- OUTSIDE RECORDS SUMMARY | 2025-04-30 13:09 | XMS_ITS | Encounter Summary ---
Author Organization [facility] Address [address] [facility] [address] [place] [address] Phone Care Team Providers Care Management Architect Name Role Phone Marisol Herrera MD Primary Care Provider [phone] Marisol Herrera MD Unavailable [phone] Marisol Herrear MD Unavailable [phone] Unknown, Unknown Primary Care Provider Batsheva Light MD Primary Care Provider [phone] Marisol Herrera MD Unavailable [phone] Encounter Details Date Type Department Care Team (Latest Contact Info) Description 06/25/2019 Transcribe Orders [facility] [address] [place] [address] [place] [address] Marisol Herrera MD [address] [place] [address] Uncontrolled type 2 diabetes mellitus with hyperglycemia (Primary Dx); Special screening for malignant neoplasm of prostate; Hyperlipidemia, unspecified hyperlipidemia type Social History Tobacco [...] 05/07/2025 10:00 AM EDT Nurse Only Jonnathan [facility] [address] [place] [address] Ariadna Pena, EDEN 22 [facility], 1st Floor [place], [place] [id number] [email or web address] 09/30/2025 12:30 PM EST Office Visit [facility] [address] [place] [address] Ariadna Pena, HORTICULTURE TEACHER 22 [facility], 1st [place] [address] [email or web address] documented as of this encounter Results * Microalbumin/creatinine ratio, random urine (06/25/2019 9:29 AM EDT) URINE MICROALBUMIN <1.2 0 - 2.3 mg/dL [facility] URINE CREATININE 48 mg/dL [facility] MICROALB/CRE RATIO NOT CALCULATED 0 - 20 mg/g Cre [facility] Comment:due to Microalbumin <1.2 Urine (Urine) 06/25/2019 9:2 9 AM EDT 06/25/2019 9:38 AM EDT us Marisol Herrera MD URINE ORDERABLES Final Resul t Performing Organization Address City/[facility]/ZIP Co de Phone Number [address] [address] * PSA (screening) (06/25/2019 9:29 AM EDT) PSA 0.07 0 - 4.00 ng/mL [facility] Blood 06/25/2019 9:29 AM EDT 06/25/2019 9:38 AM EDT us Marisol Herrera MD LAB BLOOD ORDERABLES Final R esult Performing Organization Address City/[facility]/ZIP Co de Phone Number [address] [phone] * (ABNORMAL) Lipid panel (06/25/2019 9:29 AM EDT) HDL 47 mg/dL [facility] Comment: Interpretation <40 mg/dL: Low HDL cholesterol (major risk factor for CHD) Greater than or equal to 60 mg/dL: High HDL cholesterol ( negative risk factor for CHD) HDL - cholesterol is affected by a number of factors, e.g. smoking, excerise, hormones, sex and age. CHOLESTEROL 156 0 - 240 mg/dL [facility] TRIGLYCERIDES 123 30 - 160 mg/dL [facility] LDL 84 50 - 129 mg/dL [facility] Comment: LDL levels in terms of risk for coronary heart disease: <100 mg/dL: Optimal 100-129 mg/dL: Near or above optimal 130-159 mg/dL: Borderline high 160-189 mg/dL: High >190 mg/dL: Very High CARDIAC RISK RATIO 3.3(L) 3.4 - 5.0 C [facility] Blood 06/25/2019 9:29 AM EDT 06/25/2019 9:38 AM EDT us Marisol Herrera MD LAB BLOOD ORDERABLES Final R esult Performing Organization Address [facility] Co de Phone Number [address] [address] * (ABNORMAL) Hemoglobin A1c (06/25/2019 9:29 AM EDT) HEMOGLOBIN A1C 8.1(H) 4.3 - 5.8 % [facility] Blood 06/25/2019 9:29 AM EDT 06/25/2019 9:38 AM EDT us Marisol Herrera MD LAB BLOOD ORDERABLES Final R esult Performing Organization Address [facility] Co de Phone Number [address] [address] documented in this encounter Visit Diagnoses Diagnosis Uncontrolled type 2 diabetes mellitus with hyperglycemia- Primary Special screening for malignant neoplasm of prostate Hyperlipidemia, unspecified hyperlipidemia type documented in this encounter Care Teams Management Architect Relationship Specialty Start Date End Date Marisol Herrera MD [address] [place] [address] PCP - General Internal Medicine 10/21/17 06/01/23 Unknown, Unknown, PCP - General 06/02/23 08/15/23 Batsheva Hamilton MD [address] [place] [address] [place] [address] PCP - General Internal Medicine 08/16/23 Marisol Herrera MD [address] [place] [address] Insurance Assigned Provider 01/09/20 07/12/20 Marisol Herrera MD [address] [place] [phone] Insurance Assigned Provider 12/11/22 06/01/23 Marisol Herrera MD [address] [place] [phone] Insurance Assigned Provider 12/11/22 09/10/23 documented as of this encounter Additional Source Comments The information contained in this document represents components of the legal health record. It is not the complete legal health record.[facility]
--- OUTSIDE RECORDS SUMMARY | 2025-04-30 13:09 | XMS_ITS | Encounter Summary ---
Author Organization [facility] Address [address] [facility] [address] [place] [address] Phone Care Team Providers Care Infectious Disease Technician Name Role Phone Marisol Herrera MD Primary Care Provider [phone] Marisol Herrera MD Unavailable [phone] Unknown, Unknown Primary Care Provider Batsheva Light MD Primary Care Provider [phone] Marisol Herrera MD Unavailable [phone] Encounter Details Date Type Department Care Team (Latest Contact Info) Description 10/16/2021 Transcribe Orders [address] [place] [address] Marisol Herrera MD [address] [place] [address] [email or web address] Hyperlipidemia, unspecified hyperlipidemia type (Primary Dx) Social History Tobacco Use Types [...] 05/07/2025 10:00 AM EDT Nurse Only Jonnathan [facility] [address] [place] [address] Ariadna Pena, EDEN 22 [facility], 1st Floor [place], [place] [phone] [email or web address] 09/30/2025 12:30 PM EST Office Visit [facility] [address] [place] [address] Ariadna Pena CNP 22 [facility], 1st [place] [address] [email or web address] documented as of this encounter Results * (ABNORMAL) Lipid panel (10/16/2021 9:37 AM EST) HDL 44 mg/dL [facility] Comment: Interpretation <40 mg/dL: Low HDL cholesterol (major risk factor for CHD) Greater than or equal to 60 mg/dL: High HDL cholesterol ( negative risk factor for CHD) HDL - cholesterol is affected by a number of factors, e.g. smoking, excerise, hormones, sex and age. CHOLESTEROL 169 0 - 240 mg/dL [facility] TRIGLYCERIDES 238(H) 30 - 160 mg/dL [facility] LDL 77 50 - 129 mg/dL [facility] Comment: LDL levels in terms of risk for coronary heart disease: <100 mg/dL: Optimal 100-129 mg/dL: Near or above optimal 130-159 mg/dL: Borderline high 160-189 mg/dL: High >190 mg/dL: Very High CARDIAC RISK RATIO 3.8 3.4 - 5.0 C [facility] Blood 10/16/2021 9:37 AM EST 10/16/2021 9:39 AM EST us Marisol Herrera MD LAB BLOOD ORDERABLES Final R esult [facility] [address] [place] [address] documented in this encounter Visit Diagnoses Diagnosis Hyperlipidemia, unspecified hyperlipidemia type- Primary documented in this encounter Care Teams Infectious Disease Technician Relationship Specialty Start Date End Date Marisol Herrera MD [address] [place] [address] [address] [place] [address] PCP - General Internal Medicine 10/21/17 06/01/23 Unknown, Unknown, MD PCP - General 06/02/23 08/15/23 Batsheva Hamilton MD [address] [place] [address] [place] [address] PCP - General Internal Medicine 08/16/23 Marisol Herrera MD [address] [place] [phone] Insurance Assigned Provider 12/11/22 06/01/23 Marisol Herrera MD [address] [place] [phone] Insurance Assigned Provider 12/11/22 09/10/23 documented as of this encounter Additional Source Comments The information contained in this document represents components of the legal health record. It is not the complete legal health record.[facility]
--- OUTSIDE RECORDS SUMMARY | 2025-04-30 13:09 | XMS_ITS | Encounter Summary ---
Author Organization [facility] Address [address] [facility] [address] [place] [address] Phone Care Team Providers Care Medical Instructor Name Role Phone Marisol Herrera MD Primary Care Provider + [phone] Marisol Herrera MD Unavailable [phone] Unknown, Unknown Primary Care Provider Batsheva Light MD Primary Care Provider [phone] Marisol Herrera MD Unavailable [phone] Encounter Details Date Type Department Care Team (Latest Contact Info) Description 06/16/2021 Transcribe Orders [address] [place] [address] Marisol Herrera MD [address] [place] [address] [email or web address] Uncontrolled type [...] 05/07/2025 10:00 AM EDT Nurse Only Jonnathan [facility] [address] [place] [address] Ariadna Pena, EDEN 22 [facility], 1st Floor [place], [place] [phone] 09/30/2025 12:30 PM EST Office Visit [facility] [address] [place] [address] Ariadna Pena, EDEN 22 [facility], 1st [place] [address] [email or web address] documented as of this encounter Results * (ABNORMAL) Hemoglobin A1c (06/16/2021 9:42 AM EDT) HEMOGLOBIN A1C 10.2(H) 4.3 - 5.8 % [facility] Blood 06/16/2021 9:42 AM EDT 06/16/2021 9:45 AM EDT us Marisol Herrera MD LAB BLOOD ORDERABLES Final R esult Performing Organization Address City/State/[facility] Co de Phone Number [facility] [address] [place] [address] documented in this encounter Visit Diagnoses Diagnosis Uncontrolled type 2 diabetes mellitus with hyperglycemia- Primary documented in this encounter Care Teams Medical Instructor Relationship Specialty Start Date End Date Marisol Herrera MD [address] [place] [address] PCP - General Internal Medicine 10/21/17 06/01/23 Unknown, Unknown, MD PCP - General 06/02/23 08/15/23 Batsheva Hamilton MD [address] [place] [place] [address] PCP - General Internal Medicine 08/16/23 Marisol Herrera MD [address] [place] [phone] Insurance Assigned Provider 12/11/22 06/01/23 Marisol Herrera MD [address] [place] [address] Insurance Assigned Provider 12/11/22 09/10/23 documented as of this encounter Additional Source Comments The information contained in this document represents components of the legal health record. It is not the complete legal health record.[facility]
--- OUTSIDE RECORDS SUMMARY | 2025-04-30 13:09 | XMS_ITS | Encounter Summary ---
Author Organization [facility] Address [address] [facility] [address] [place] [address] Phone Care Team Providers Care Check Embosser Name Role Phone Marisol Herrera MD Primary Care Provider [phone] Marisol Herrera MD Unavailable [phone] Marisol Herrera MD Unavailable [phone] Unknown, Unknown Primary Care Provider Batsheva Light MD Primary Care Provider [phone] Marisol Herrera MD Unavailable [phone] Encounter Details Date Type Department Care Team (Late st Contact Info) Description 01/01/2020 Transcribe Orders [facility] [address] [place] [address] [place] [address] Marisol Herrera MD [address] [place] [address] Type II diabetes mellitus with hyperosmolarity, uncontrolled (Primary Dx); Essential hypertension, malignant Social History Tobacco Use Types Packs/Day Years [...] 05/07/2025 10:00 AM EDT Nurse Only Jonnathan [facility] [address] [place] [address] Ariadna Pena, EDEN 22 [facility], 1st [place] [address] [email or web address] 09/30/2025 12:30 PM EST Office Visit [facility] [address] [place] [address] Ariadna Pena CNP 22 [facility], 1st [place] [address] [email or web address] documented as of this encounter Results * Microalbumin/creatinine ratio, random urine (01/01/2020 10:05 AM EDT) URINE MICROALBUMIN <1.2 0 - 2.3 mg/dL [facility] URINE CREATININE 39 mg/dL [facility] MICROALB/CRE RATIO NOT CALCULATED 0 - 20 mg/g Cre [facility] Comment:due to Microalbumin <1.2 Urine (Urine) 01/01/2020 10: 05 AM EDT 01/01/2020 10:10 AM EDT us Marisol Herrera MD URINE ORDERABLES Final Resul t Performing Organization Address City/State/[facility] Co de Phone Number [facility] [address] [place] [address] * (ABNORMAL) Comprehensive metabolic panel (01/01/2020 9:58 AM EDT) SODIUM 137 133 - 146 mmol/L [facility] POTASSIUM 4.7 3.3 - 5.1 mmol/L [facility] CHLORIDE 100 96 - 108 mmol/L [facility] CO2 23 21 - 35 mmol/L [facility] BUN 24(H) 6 - 19 mg/dL [facility] CREATININE 0.70 0.5 - 1.5 mg/dL [facility] GLUCOSE 189(H) 70 - 99 mg/dL [facility] ALBUMIN 4.6 3.9 - 4.8 g/dL [facility] TOTAL PROTEIN 7.3 6.5 - 8.0 g/dL [facility] CALCIUM 9.8 8.4 - 10.3 mg/dL [facility] ALKALINE PHOSPHATASE 66 39 - 117 U/L [facility] TOTAL BILIRUBIN 0.9 0.0 - 1.2 mg/dL [facility] AST 21 0 - 37 U/L [facility] ALT 13 0 - 40 U/L [facility] GLOBULIN 2.7 1 - 4.8 g/dL [facility] EGFR 98 >59 mL/min/1.7 3m2 [facility] Comment:If patient is black, multiply result by 1.159. Estimated glomerular filtration rate calculated using the CKD-EPI equation. ANION GAP 19 10 - 20 mmol/L [facility] Blood 01/01/2020 9:58 AM EDT 01/01/2020 10:03 AM EDT Marisol Herrera MD LAB BLOOD ORDERABLES Final R esult [address] [address] * CBC (01/01/2020 9:58 AM EDT) WBC 8.07 4.00 - 11.00 K/uL [facility] Comment:Note Reference Range updates to all CBC and Differential results. RBC 4.38 3.90 - 5.69 M/uL [facility] HGB 13.5 12.4 - 17.3 g/dL [facility] Comment:Note updated Referen ce Ranges for all CBC and Differential results. HCT 39.9 37.0 - 51.0 % [facility] PLT 277 140 - 430 K/uL [facility] MCV 91.1 78.0 - 97.0 [facility] MCH 30.8 25.0 - 33.0 pg [facility] MCHC 33.8 32.0 - 36.0 g/dL [facility] RDW 12.8 11.0 - 15.0 % [facility] MPV 11.1 8.4 - 12.8 [facility] NRBC 0.00 0 /100 WBCs [facility] ABSOLUTE NRBC 0.00 0 K/uL [facility] Blood 01/01/2020 9:58 AM EDT 01/01/2020 10:03 AM EDT us Marisol Herrera MD LAB BLOOD ORDERABLES Final R esult Performing Organization Address City/[facility]/ZIP Co de Phone Number [address] [address] * (ABNORMAL) Hemoglobin A1c (01/01/2020 9:58 AM EDT) HEMOGLOBIN A1C 8.7(H) 4.3 - 5.8 % [facility] Blood 01/01/2020 9:58 AM EDT 01/01/2020 10:03 AM EDT us Marisol Herrera MD LAB BLOOD ORDERABLES Final R esult Performing Organization Address City/[facility] Co de Phone Number [address] [address] documented in this encounter Visit Diagnoses Diagnosis Type II diabetes mellitus with hyperosmolarity, uncontrolled- Primary Type II or unspecified type diabetes mellitus with hyperosmolarity, uncontrolled Essential hypertension, malignant documented in this encounter Care Teams Check Embosser Relationship Specialty Start Date End Date Marisol Herrera MD [address] [place] [address] [email or web address] PCP - General Internal Medicine 10/21/17 06/01/23 Unknown, Unknown, MD PCP - General 06/02/23 08/15/23 Batsheva Hamilton MD [address] [place] [address] [place] [address] PCP - General Internal Medicine 08/16/23 [place] [address] [email or web address] Insurance Assigned Provider 01/09/20 07/12/20 Marisol Herrera MD [address] [place] [address] [email or web address] Insurance Assigned Provider 12/11/22 06/01/23 Marisol Herrera MD [address] [place] [address] [email or web address] Insurance Assigned Provider 12/11/22 09/10/23 documented as of this encounter Additional Source Comments The information contained in this document represents components of the legal health record. It is not the complete legal health record.[facility]
== END 2025-04-30 13:26 | disposition home or self-care (01) ==
LOC: HO.HMCC 12:21
PROVIDERS: PCP Internal Medicine; Visit Provider Internal Medicine
DX: E11.9 Type 2 diabetes mellitus without complications (principal); I10 Essential (primary) hypertension; E78.5 Hyperlipidemia, unspecified

== ENCOUNTER → 2025-04-30 12:21 | Outpatient (BNVA) | payer MEDICARE, OTHER, SELFPAY | PROVIDERS: PCP Internal Medicine; Visit Provider Internal Medicine | DX: E11.9 Type 2 diabetes mellitus without complications (principal); E78.5 Hyperlipidemia, unspecified; I10 Essential (primary) hypertension | CPT/HCPCS: 96127; 99212 ==

== ENCOUNTER 2025-07-31 08:43 | Outpatient (REF) | payer MEDICARE, OTHER, SELFPAY ==
--- OUTSIDE RECORDS SUMMARY | 2025-07-31 09:05 | XMS_ITS | Encounter Summary ---
Author Organization [facility] Address [address] [facility] [address] [place] [address] Phone Care Team Providers Care Deputy Clerk Of Superior Court Name Role Phone Marisol Herrera MD Primary Care Provider [phone] Marisol Herrera MD Unavailable [phone] Marisol Herrera MD Unavailable [phone] Unknown, Unknown Primary Care Provider Batsheva Light MD Primary Care Provider [phone] Marisol Herrera MD Unavailable [phone] Encounter Details Date Type Department Care Team (Latest Contact Info) Description 10/21/2017 Transcribe Orders [address] [place] [address] Marisol Herrera MD [address] [place] [address] [email or web address] Uncontrolled type 2 diabetes mellitus with complication, [...] Care Team (Late st Contact Info) Description 07/31/2025 10:30 AM EST Nurse Only Jonnathan [facility] [address] [place] [phone] Ariadna Pena, METER SHOP SUPERINTENDENT 22 [facility], [address] [place] [address] 09/30/2025 12:30 PM EST Office Visit [facility] 22 [place] [address] Ariadna Pena, METER SHOP SUPERINTENDENT 22 [facility], [address] [place] [address] [email or web address] documented as of this encounter Results * Microalbumin/creatinine ratio, random urine (10/21/2017 8:48 AM EST) URINE MICROALBUMIN 0.2 0 - 2.3 mg/dL [facility] URINE CREATININE 71 mg/dL [facility] MICROALB/CRE RATIO NOT CALCULATED 0 - 20 mg/g Cre [facility] Comment:due to Microalbumin <1.2 Urine (Urine) 10/21/2017 8:4 8 AM EST 10/21/2017 8:52 AM EST us Marisol Herrera MD LAB URINE ORDERABLES Final R esult [facility] [address] [place] [address] * (ABNORMAL) Basic metabolic panel (10/21/2017 8:48 AM EST) SODIUM 136 133 - 146 mmol/L [facility] CHLORIDE 99 96 - 108 mmol/L [facility] POTASSIUM 4.6 3.3 - 5.1 mmol/L [facility] CO2 25 21 - 35 mmol/L [facility] BUN 20(H) 6 - 19 mg/dL [facility] CREATININE 0.60 0.5 - 1.5 mg/dL [facility] GLUCOSE 198(H) 70 - 99 mg/dL [facility] CALCIUM 9.9 8.4 - 10.3 mg/dL [facility] EGFR >60 60 - 1000 mL/min/1.7 3m2 [facility] Comment:Abnormal if <60. If patient is -Tanzanian, multiply the result by 1.21. ANION GAP 17 10 - 20 mmol/L [facility] Blood 10/21/2017 8:48 AM EST 10/21/2017 8:52 AM EST Marisol Herrera MD LAB BLOOD BKR ORDERABLES Fin al Result Performing Organization Address [facility]/ZIP Co de Phone Number [address] [address] * Direct LDL (10/21/2017 8:48 AM EST) [...] reference intervals for this test in the [employer] Laboratory Test Directory ([employer]). Performed by [employer], [address] [place] [address] [id number] [email or web address], Jose Vu MD - Lab. Director Test Performed by: [facility] [address] [place] [address] Blood 10/21/2017 8:48 AM EST 10/21/2017 8:51 AM EST Marisol Herrera MD LAB BLOOD BKR ORDERABLES Fin al Result Performing Organization Address City/[facility]/ZIP Co de Phone Number [facility] * (ABNORMAL) Hemoglobin A1c (10/21/2017 8:48 AM EST) HEMOGLOBIN A1C 9.9(H) 4.3 - 5.8 % [facility] Blood 10/21/2017 8:48 AM EST 10/21/2017 8:52 AM EST us Marisol Herrera MD LAB BLOOD BKR ORDERABLES Fin al Result [facility] [address] [place] [address] documented in this encounter Visit Diagnoses Diagnosis Uncontrolled type 2 diabetes mellitus with complication, without long-term current use of insulin- Primary Hyperlipidemia, unspecified hyperlipidemia type Hypertension, unspecified type documented in this encounter Care Teams Deputy Clerk Of Superior Court Relationship Specialty Start Date End Date Marisol Herrera MD [address] [place] [phone] [email or web address] PCP - General Internal Medicine 10/21/17 06/01/23 Unknown, Unknown, MD PCP - General 06/02/23 08/15/23 Batsheva Hamilton MD [address] [place] [address] PCP - General Internal Medicine 08/16/23 Marisol Herrera MD [address] [place] [phone] Insurance Assigned Provider 01/09/20 07/12/20 Marisol Herrera MD [address] [place] [phone] Insurance Assigned Provider 12/11/22 06/01/23 Marisol Herrera MD [address] [place] [address] Insurance Assigned Provider 12/11/22 09/10/23 documented as of this encounter Additional Source Comments The information contained in this document represents components of the legal health record. It is not the complete legal health record.[facility]
--- OUTSIDE RECORDS SUMMARY | 2025-07-31 09:05 | XMS_ITS | Encounter Summary ---
Author Organization [facility] Address [address] [facility] [address] [place] [address] Phone Care Team Providers Care Gas Leak Inspector Name Role Phone Marisol Herrera MD Primary Care Provider [phone] Marisol Herrera MD Unavailable [phone] Marisol Herrera MD Unavailable [phone] Unknown, Unknown Primary Care Provider Batsheva Light MD Primary Care Provider [phone] Marisol Herrera MD Unavailable [phone] Encounter Details Date Type Department Care Team (Latest Contact Info) Description 02/22/2019 Transcribe Orders [address] [place] [address] Marisol Herrera MD [address] [place] [address] [email or web address] Uncontrolled type 2 diabetes mellitus with hypoglycemia, [...] 07/31/2025 10:30 AM EST Nurse Only [facility] [address] [place] [address] Ariadna Pena, EDEN [address] [facility], 1st Floor [place], [place] [id number] [email or web address] 09/30/2025 12:30 PM EST Office Visit [facility] [address] [place] [address] Ariadna Pena, DIRECTOR OF RECRUITMENT AND ADMISSIONS [address] [facility], 1st [place] [address] [email or web address] documented as of this encounter Results * Microalbumin/creatinine ratio, random urine (02/22/2019 9:11 AM EDT) URINE MICROALBUMIN <1.2 0 - 2.3 mg/dL [facility] URINE CREATININE 93 mg/dL [facility] MICROALB/CRE RATIO NOT CALCULATED 0 - 20 mg/g Cre [facility] Comment:due to Microalbumin <1.2 Urine (Urine) 02/22/2019 9:1 1 AM EDT 02/22/2019 9:17 AM EDT us Marisol Herrera MD LAB URINE ORDERABLES Final R esult [facility] [address] [place] [address] * (ABNORMAL) Lipid panel (02/22/2019 9:11 AM EDT) HDL 45 mg/dL [facility] Comment: Interpretation <40 mg/dL: Low HDL cholesterol (major risk factor for CHD) Greater than or equal to 60 mg/dL: High HDL cholesterol ( negative risk factor for CHD) HDL - cholesterol is affected by a number of factors, e.g. smoking, excerise, hormones, sex and age. CHOLESTEROL 173 0 - 240 mg/dL [facility] TRIGLYCERIDES 215(H) 30 - 160 mg/dL [facility] LDL 85 50 - 129 mg/dL [facility] Comment: LDL levels in terms of risk for coronary heart disease: <100 mg/dL: Optimal 100-129 mg/dL: Near or above optimal 130-159 mg/dL: Borderline high 160-189 mg/dL: High >190 mg/dL: Very High CARDIAC RISK RATIO 3.8 3.4 - 5.0 [facility] Blood 02/22/2019 9:11 AM EDT 02/22/2019 9:18 AM EDT Marisol Herrera MD LAB BLOOD BKR ORDERABLES Fin al Result Performing Organization Address City/[facility]/ZIP Co de Phone Number [address] [address] * (ABNORMAL) Hemoglobin A1c (02/22/2019 9:11 AM EDT) HEMOGLOBIN A1C 8.4(H) 4.3 - 5.8 % [facility] Blood 02/22/2019 9:11 AM EDT 02/22/2019 9:18 AM EDT Marisol Herrera MD LAB BLOOD BKR ORDERABLES Fin al Result Performing Organization Address [facility] Co de Phone Number [address] [address] * (ABNORMAL) Comprehensive metabolic panel (02/22/2019 9:11 AM EDT) SODIUM 139 133 - 146 mmol/L [facility] POTASSIUM 4.5 3.3 - 5.1 mmol/L [facility] CHLORIDE 102 96 - 108 mmol/L [facility] CO2 23 21 - 35 mmol/L [facility] BUN 13 6 - 19 mg/dL [facility] CREATININE 0.70 0.5 - 1.5 mg/dL [facility] GLUCOSE 221(H) 70 - 99 mg/dL [facility] ALBUMIN 4.1 3.9 - 4.8 g/dL [facility] TOTAL PROTEIN 6.9 6.5 - 8.0 g/dL [facility] CALCIUM 10.2 8.4 - 10.3 mg/dL [facility] ALKALINE PHOSPHATASE 68 39 - 117 U/L [facility] TOTAL BILIRUBIN 0.7 0.0 - 1.2 mg/dL [facility] AST 18 0 - 37 U/L [facility] ALT 13 0 - 40 U/L [facility] GLOBULIN 2.8 1 - 4.8 g/dL [facility] EGFR 98 >59 mL/min/1.7 3m2 [facility] Comment:If patient is black, multiply result by 1.159. Estimated glomerular filtration rate calculated using the CKD-EPI equation. ANION GAP 19 10 - 20 mmol/L [facility] Blood 02/22/2019 9:11 AM EDT 02/22/2019 9:18 AM EDT us Marisol Herrera MD LAB BLOOD BKR ORDERABLES Fin al Result Performing Organization Address City/State/[facility] Co de Phone Number [facility] [address] [place] [address] documented in this encounter Visit Diagnoses Diagnosis Uncontrolled type 2 diabetes mellitus with hypoglycemia, unspecified hypoglycemia coma status- Primary Hyperlipidemia, unspecified hyperlipidemia type documented in this encounter Care Teams Gas Leak Inspector Relationship Specialty Start Date End Date Marisol Herrera MD [address] [place] [address] [email or web address] PCP - General Internal Medicine 10/21/17 06/01/23 Unknown, Unknown, PCP - General 06/02/23 08/15/23 Batsheva Hamilton MD [address] [place] [address] PCP - General Internal Medicine 08/16/23 Marisol Herrera MD [address] [place] [address] Insurance Assigned Provider 01/09/20 07/12/20 Marisol Herrera MD [address] [place] [address] [email or web address] Insurance Assigned Provider 12/11/22 06/01/23 Marisol Herrera MD [address] [place] [address] [email or web address] Insurance Assigned Provider 12/11/22 09/10/23 documented as of this encounter Additional Source Comments The information contained in this document represents components of the legal health record. It is not the complete legal health record.[facility]
--- OUTSIDE RECORDS SUMMARY | 2025-07-31 09:05 | XMS_ITS | Encounter Summary ---
Author Organization [facility] Address [address] [facility] [address] [place] [address] Phone Care Team Providers Care Buyer Name Role Phone Marisol Herrera MD Primary Care Provider [phone] Marisol Herrera MD Unavailable [phone] Marisol Herrera MD Unavailable [phone] Unknown, Unknown Primary Care Provider Batsheva Light MD Primary Care Provider [phone] Marisol Herrera MD Unavailable [phone] Encounter Details Date Type Department Care Team (Late st Contact Info) Description 01/01/2020 Transcribe Orders [address] [place] [address] Marisol Herrera MD [address] [place] [address] [email or web address] Type II diabetes mellitus with hyperosmolarity, uncontrolled [...] Description 07/31/2025 10:30 AM EST Nurse Only [facility] [address] [place] [address] Ariadna Pena, EDEN [address] [facility], 1st [place] [address] 09/30/2025 12:30 PM EST Office Visit [facility] [address] [place] [address] Ariadna Pena CNP [address] [facility], 1st [place] [address] [email or web address] documented as of this encounter Results * Microalbumin/creatinine ratio, random urine (01/01/2020 10:05 AM EDT) URINE MICROALBUMIN <1.2 0 - 2.3 mg/dL [facility] URINE CREATININE 39 mg/dL [facility] MICROALB/CRE RATIO NOT CALCULATED 0 - 20 mg/g Cre [facility] Comment:due to Microalbumin <1.2 Urine (Urine) 01/01/2020 10: 05 AM EDT 01/01/2020 10:10 AM EDT us Marisol Herrera MD LAB URINE ORDERABLES Final R esult [facility] [address] [place] [address] * (ABNORMAL) Comprehensive metabolic panel (01/01/2020 9:58 AM EDT) SODIUM 137 133 - 146 mmol/L [facility] POTASSIUM 4.7 3.3 - 5.1 mmol/L [facility] CHLORIDE 100 96 - 108 mmol/L [facility] CO2 23 21 - 35 mmol/L [facility] BUN 24(H) 6 - 19 mg/dL [facility] CREATININE 0.70 0.5 - 1.5 mg/dL [facility] GLUCOSE 189(H) 70 - 99 mg/dL [facility] ALBUMIN 4.6 3.9 - 4.8 g/dL [facility] TOTAL PROTEIN 7.3 6.5 - 8.0 g/dL [facility] CALCIUM 9.8 8.4 - 10.3 mg/dL [facility] ALKALINE PHOSPHATASE 66 39 - 117 U/L [facility] TOTAL BILIRUBIN 0.9 0.0 - 1.2 mg/dL [facility] AST 21 0 - 37 U/L [facility] ALT 13 0 - 40 U/L [facility] GLOBULIN 2.7 1 - 4.8 g/dL [facility] EGFR 98 >59 mL/min/1.7 3m2 [facility] Comment:If patient is black, multiply result by 1.159. Estimated glomerular filtration rate calculated using the CKD-EPI equation. ANION GAP 19 10 - 20 mmol/L [facility] Blood 01/01/2020 9:58 AM EDT 01/01/2020 10:03 AM EDT us Marisol Herrera MD LAB BLOOD BKR ORDERABLES Fin al Result [address] [id number] * CBC (01/01/2020 9:58 AM EDT) WBC 8.07 4.00 - 11.00 K/uL [facility] Comment:Note Reference Range updates to all CBC and Differential results. RBC 4.38 3.90 - 5.69 M/uL [facility] HGB 13.5 12.4 - 17.3 g/dL [facility] Comment:Note updated Referen ce Ranges for all CBC and Differential results. HCT 39.9 37.0 - 51.0 % [facility] PLT 277 140 - 430 K/uL [facility] MCV 91.1 78.0 - 97.0 [facility] MCH 30.8 25.0 - 33.0 pg [facility] MCHC 33.8 32.0 - 36.0 g/dL [facility] RDW 12.8 11.0 - 15.0 % [facility] MPV 11.1 8.4 - 12.8 [facility] NRBC 0.00 0 /100 WBCs [facility] ABSOLUTE NRBC 0.00 0 K/uL [facility] Blood 01/01/2020 9:58 AM EDT 01/01/2020 10:03 AM EDT us Marisol Herrera MD LAB BLOOD BKR ORDERABLES Fin al Result Performing Organization Address City/[facility]/ZIP Co de Phone Number [address] [address] * (ABNORMAL) Hemoglobin A1c (01/01/2020 9:58 AM EDT) HEMOGLOBIN A1C 8.7(H) 4.3 - 5.8 % [facility] Blood 01/01/2020 9:58 AM EDT 01/01/2020 10:03 AM EDT us Marisol Herrera MD LAB BLOOD BKR ORDERABLES Fin al Result Performing Organization Address City/[facility]/ZIP Co de Phone Number [address] [address] documented in this encounter Visit Diagnoses Diagnosis Type II diabetes mellitus with hyperosmolarity, uncontrolled- Primary Type II or unspecified type diabetes mellitus with hyperosmolarity, uncontrolled Essential hypertension, malignant documented in this encounter Care Teams Buyer Relationship Specialty Start Date End Date Marisol Herrera MD [address] [place] [address] [email or web address] PCP - General Internal Medicine 10/21/17 06/01/23 Unknown, Unknown, MD PCP - General 06/02/23 08/15/23 Batsheva Hamilton MD [address] [place] [address] PCP - General Internal Medicine 08/16/23 Marisol Herrera MD [address] [place] [address] [email or web address] Insurance Assigned Provider 01/09/20 07/12/20 Marisol Herrera MD [address] [place] [address] [email or web address] Insurance Assigned Provider 12/11/22 06/01/23 Marisol Herrera MD [address] [place] [address] [email or web address] Insurance Assigned Provider 12/11/22 09/10/23 documented as of this encounter Additional Source Comments The information contained in this document represents components of the legal health record. It is not the complete legal health record.[facility]
--- OUTSIDE RECORDS SUMMARY | 2025-07-31 09:05 | XMS_ITS | Encounter Summary ---
Author Organization [facility] Address [address] [facility] [address] [place] [address] Phone Care Team Providers Care Filament Coil Winder Name Role Phone Marisol Herrera MD Primary Care Provider [phone] Marisol Herrera MD Unavailable [phone] Marisol Herrera MD Unavailable [phone] Unknown, Unknown Primary Care Provider Batsheva Light MD Primary Care Provider [phone] Marisol Herrera MD Unavailable [phone] Encounter Details Date Type Department Care Team (Late st Contact Info) Description 05/02/2018 Transcribe Orders [address] [place] [address] Marisol Herrera MD [address] [place] [address] [email or web address] Uncontrolled diabetes mellitus type 2 without complications, unspecified whether skilled nursing insulin use (Primary Dx) Social History Tobacco [...] 07/31/2025 10:30 AM EST Nurse Only Jonnathan [facility] [address] [place] [address] Ariadna Pena, EDEN [address] [facility], 1st Floor [place], [place] [phone] 09/30/2025 12:30 PM EST Office Visit [facility] [address] [place] [address] Ariadna Pena CNP [address] [facility], 1st [place] [address] [email or web address] documented as of this encounter Results * (ABNORMAL) Hemoglobin A1c (05/02/2018 9:13 AM EDT) HEMOGLOBIN A1C 8.3(H) 4.3 - 5.8 % [facility] Blood 05/02/2018 9:13 AM EDT 05/02/2018 9:15 AM EDT us Marisol Herrera MD LAB BLOOD BKR ORDERABLES Fin al Result [facility] [address] [place] [address] documented in this encounter Visit Diagnoses Diagnosis Uncontrolled diabetes mellitus type 2 without complications, unspecified whether skilled nursing insulin use- Primary documented in this encounter Care Teams Filament Coil Winder Relationship Specialty Start Date End Date Marisol Herrera MD [address] [place] [address] PCP - General Internal Medicine 10/21/17 06/01/23 Unknown, Unknown, PCP - General 06/02/23 08/15/23 Batsheva Hamilton MD [address] [place] [address] PCP - General Internal Medicine 08/16/23 Marisol Herrera MD [address] [place] [address] Insurance Assigned Provider 01/09/20 07/12/20 Marisol Herrera MD [address] [place] [address] [email or web address] Insurance Assigned Provider 12/11/22 06/01/23 Marisol Herrera MD [address] [place] [address] [email or web address] Insurance Assigned Provider 12/11/22 09/10/23 documented as of this encounter Additional Source Comments The information contained in this document represents components of the legal health record. It is not the complete legal health record.[facility]
--- OUTSIDE RECORDS SUMMARY | 2025-07-31 09:05 | XMS_ITS | Clinical Summary ---
Author Organization [facility] Address [address] [facility] [address] [place] [address] Phone Care Team Providers Care Aircraft Pilot Name Role Phone Batsheva Hamilton MD Primary Care Provider [phone] Allergies No known active allergies Medications cloNIDine [...] 2 weeks to drop off at front clerk or follow up appointment. Assessment & [...] 2 weeks to drop off at front clerk or follow up appointment. Assessment & [...] 2 weeks to drop off at front clerk or follow up appointment. Assessment & [...] on 12/21/22 to drop off at front clerk or follow up appointment. Assessment & [...] is encouraged to finish this out and picker tender the new dose as soon as possible [...] 2 weeks to drop off at front clerk or follow up appointment. Assessment & [...] Encounters Date Type Department Care Team Description 07/22/2025 2:30 PM EST Nurse Only [address] [place] [address] Elda Joseph MD 07/18/2025 Telephone [facility] [address] [place] [address] [place] [address] Sofie Olson MA CLINICAL NOTES 07/11/2025 3:00 PM EST Nurse Only [facility] [address] [place] [address] [place] [address] Elda Joseph MD Type 2 diabetes mellitus with hyperglycemia, without long-term current use of insulin (Primary Dx) 07/01/2025 10:00 AM EDT Nurse Only [address] [place] [address] Ariadna Pena CNP Type 2 diabetes mellitus with hyperglycemia, without long-term current use of insulin (Primary Dx) 06/20/2025 10:30 AM EDT Nurse Only [facility] [address] [place] [address] [place] [address] Ariadna Pena CNP Type 2 diabetes mellitus with hyperglycemia, without long-term current use of insulin (Primary Dx) 06/10/2025 10:00 AM EDT Nurse Only [address] [place] [address] Elda Joseph MD Type 2 diabetes mellitus with hyperglycemia, without long-term current use of insulin (Primary Dx) 05/30/2025 9:45 AM EDT Nurse Only [facility] [address] [place] [address] Ariadna Pena CNP 05/20/2025 9:30 AM EDT Nurse Only [facility] [address] [place] [address] Ariadna Pena CNP 05/07/2025 10:00 AM EDT Nurse Only [facility] [address] [place] [address] Ariadna Pena, EDEN Type 2 diabetes mellitus with hyperglycemia, without [...] Description 07/31/2025 10:30 AM EST Nurse Only [facility] [address] [place] [address] Ariadna Pena, VICE PRESIDENT [address] [place] [address] 09/30/2025 12:30 PM EST Office Visit [address] [place] [address] Ariadna Pena, VICE PRESIDENT [address] [place] [address] Health Maintenance Due Date Last Done Comments DEPRESSION SCREENING 1964 HEPATITIS C SCREENING 1970 COLOGUARD 1997 FIT TEST 1997 FOBT 1997 SIGMOIDOSCOPY 1997 VIRTUAL COLONOSCOPY 1997 RSV VACCINE (1 - Risk 50-74 years 1-dose series) 2002 ZOSTER VACCINES (1 of 2) 2002 CREATININE LEVEL 07/20/2023 07/20/2022, 07/2022, 05/13/2020, Additional history exists POTASSIUM LEVEL 07/20/2023 07/20/2022, 0409/2021, 05/13/2020, Additional history exists DIABETIC EYE EXAM 07/01/2024 07/01/2023, 07/01/2023 COVID-19 VACCINE ( season) 2025 06/03/2025, 05/11/2024, 07/23/2023, Additional history exists BLOOD PRESSURE 10/05/2025 04/04/2025 HEMOGLOBIN A1C 10/05/2025 04/04/2025, 03/3 09/2024, 09/03/2024, Additional history exists COLONOSCOPY 06/04/2027 06/04/2020 COLORECTAL CANCER SCREENING 06/04/2027 Adult Td,Tdap Booster 04/07/2032 04/07/2022, 011 PNEUMOCOCCAL VACCINES (50+ years) Completed 04/07/2022, 01/16/2014 SMOKING STATUS SCREENING (Once After 26 Yrs) Completed 04/04/2025 INFLUENZA VACCINE Completed 06/03/2025, , 06/09/2023, Additional history exists HEPATITIS A VACCINES Aged Out No long er eligible based on patient's age to complete this topic HIB VACCINES Aged Out No longer eligi ble based on patient's age to complete this topic IPV VACCINES Aged Out No longer eligi ble [...] current use of insulin BASIC METABOLIC PANEL (BMP) Routine 07/20/2022 3:39 PM EST Type 2 diabetes mellitus with hyperglycemia, without long-term current use of insulin ENDOSCOPY, COLON 06/04/2020 8:41 AM EDT from Last 3 Months or Most Recently Relevant to Health Maintenance Results * (ABNORMAL) POCT Hemoglobin A1c (04/04/2025 11:04 AM EDT) Hemoglobin A1c 7.9(A) 4.2 - 5.6 % [facility] Other 04/04/2025 11:0 4 AM EDT Ariadna Pena [facility] LAB POCT ENTER/EDIT ORDERABLE S Final Result Performing Organization Address [facility] Co de Phone Number [address] [address], [facility] * (ABNORMAL) Basic metabolic panel (07/20/2022 3:39 PM EST) SODIUM 136 133 - 146 mmol/L [facility] CHLORIDE 100 96 - 108 mmol/L [facility] POTASSIUM 4.4 3.3 - 5.1 mmol/L [facility] CO2 22 21 - 35 mmol/L [facility] BUN 26(H) 6 - 19 mg/dL [facility] CREATININE 0.70 0.5 - 1.5 mg/dL [facility] GLUCOSE 183(H) 70 - 99 mg/dL [facility] CALCIUM 10.3 8.4 - 10.3 mg/dL [facility] EGFR 99 >59 mL/min/1.7 3m2 [facility] Comment:Estimated glomerular filtration rate calculated using the CKD-EPI refit equation. ANION GAP 18 10 - 20 mmol/L [facility] Blood 07/20/2022 3:39 PM EST 07/20/2022 3:46 PM EST Ariadna Pena [facility] LAB BLOOD BKR ORDERABLES Rona l Result Performing Organization Address City/[facility]/ZIP Co de Phone Number [address] [address] * ENDOSCOPY, COLON (06/04/2020 8:41 AM EDT) Narrative Transcriptions Gamal Capellan MD - 06/04/2020 8:41 AM EDT Patient Name: Pierre Sauceda Attending MD:: GAMAL CAPELLAN MD Procedure Date: 06/04/2020 8:41 AM Date of : 1950 Age: 69 Admit Type: Outpatient Gender: Male Room: [place] [address] Referring MD: Darby Sheth MD, WILMAN EUBANKS [...] monitored continuously. The Olympus adult variable colonoscope [id number] #1was introduced through the anus and advanced [...] 8:41 AM Procedure Code(s): --- Professional --- 48016, Colonoscopy, flexible; with removal of tumor(s), polyp(s), or other lesion(s) by snare technique --- Technical --- 16877, Colonoscopy, flexible; with removal of tumor(s), polyp(s), [...] or abscess without bleeding CPT copyright 2018 [employer]. All rights reserved. The codes documented in this report are preliminary and upon bulker reviewmay be revised to meet current compliance requirements. Procedure Date: 06/04/2020 8:41:[address] [place] [address] Darby Sheth MD GI PROCEDURE ORDERABLES Fin al Result from Last 3 Months or Most Recently Relevant to Health Maintenance Insurance MEDICARE PART A & [place] [address] [place] [address] MEDICARE ENHANCE SUPPLEMENT MEDICARE PART A & B [facility] MEDICARE ENHANCE SUPPLEMENT MEDICARE PART A & B [facility] MEDICARE ENHANCE SUPPLEMENT MEDICARE PART A & B [facility] MEDICARE ENHANCE SUPPLEMENT MEDICARE PART A & B [facility] MEDICARE ENHANCE [place] [address] [place] [address] [address] [place] [address] MEDICARE PART A & B MEDICARE ENHANCE SUPPLEMENT MEDICARE PART A & [place] [address] [address] [place] [address] MEDICARE ENHANCE SUPPLEMENT MEDICARE PART A & B Member Subscriber Plan / Payer (Ef fective 2020-Present) Name:Pierre Sauceda Member ID:[id number] Relation to Subscriber:Self Name:Komal Pierre Subscriber ID:[id number] Payer ID:[id number] Group ID:Not on file Type:Medicare Address: [employer] [address] [place] [id number] [place] [address] MEDICARE ENHANCE SUPPLEMENT Care Teams Aircraft Pilot Relationship Specialty Start Date End Date Batsheva Hamilton MD [address] [place] [address] PCP - General Internal Medicine 08/16/23 Additional Source Comments The information contained in this document represents components of the legal health record. It is not the complete legal health record.[facility]
--- OUTSIDE RECORDS SUMMARY | 2025-07-31 09:05 | XMS_ITS | Encounter Summary ---
Author Organization [facility] Address [address] [facility] [address] [place] [address] Phone Care Team Providers Care Pile Driving Superintendent Name Role Phone Marisol Herrera MD Primary Care Provider [phone] Marisol Herrera MD Unavailable [phone] Marisol Herrera MD Unavailable [phone] Unknown, Unknown Primary Care Provider Batsheva Light MD Primary Care Provider [phone] Marisol Herrera MD Unavailable [phone] Encounter Details Date Type Department Care Team (Latest Contact Info) Description 06/25/2019 Transcribe Orders [address] [place] [address] Marisol Herrera MD [address] [place] [address] [email or web address] Uncontrolled type 2 diabetes mellitus with hyperglycemia [...] 07/31/2025 10:30 AM EST Nurse Only Jonnathan [facility] [address] [place] [address] Ariadna Pena, EDEN 22 [facility], 1st Floor [place], [place] [id number] .Fromography 09/30/2025 12:30 PM EST Office Visit [facility] [address] [place] [address] Ariadna Pena, AUTOMOBILE SEAT COVER INSTALLER [address] [facility], 1st [place] [address] [email or web address] documented as of this encounter Results * Microalbumin/creatinine ratio, random urine (06/25/2019 9:29 AM EDT) URINE MICROALBUMIN <1.2 0 - 2.3 mg/dL [facility] URINE CREATININE 48 mg/dL [facility] MICROALB/CRE RATIO NOT CALCULATED 0 - 20 mg/g Cre [facility] Comment:due to Microalbumin <1.2 Urine (Urine) 06/25/2019 9:2 9 AM EDT 06/25/2019 9:38 AM EDT us Marisol Herrera MD LAB URINE ORDERABLES Final R esult Performing Organization Address City/[facility]/ZIP Co de Phone Number [address] [address] * PSA (screening) (06/25/2019 9:29 AM EDT) PSA 0.07 0 - 4.00 ng/mL [facility] Blood 06/25/2019 9:29 AM EDT 06/25/2019 9:38 AM EDT us Marisol Herrera MD LAB BLOOD BKR ORDERABLES Fin al Result Performing Organization Address City/[facility]/ZIP Co de Phone Number [address] [address] * (ABNORMAL) Lipid panel (06/25/2019 9:29 AM EDT) HDL 47 mg/dL [facility] Comment: Interpretation <40 mg/dL: Low HDL cholesterol (major risk factor for CHD) Greater than or equal to 60 mg/dL: High HDL cholesterol ( negative risk factor for CHD) HDL - cholesterol is affected by a number of factors, e.g. smoking, excerise, hormones, sex and age. CHOLESTEROL 156 0 - 240 mg/dL [facility] TRIGLYCERIDES 123 30 - 160 mg/dL [facility] LDL 84 50 - 129 mg/dL [facility] Comment: LDL levels in terms of risk for coronary heart disease: <100 mg/dL: Optimal 100-129 mg/dL: Near or above optimal 130-159 mg/dL: Borderline high 160-189 mg/dL: High >190 mg/dL: Very High CARDIAC RISK RATIO 3.3(L) 3.4 - 5.0 C [facility] Blood 06/25/2019 9:29 AM EDT 06/25/2019 9:38 AM EDT us Marisol Herrera MD LAB BLOOD BKR ORDERABLES Fin al Result Performing Organization Address City/[facility] Co de Phone Number [address] [address] * (ABNORMAL) Hemoglobin A1c (06/25/2019 9:29 AM EDT) HEMOGLOBIN A1C 8.1(H) 4.3 - 5.8 % [facility] Blood 06/25/2019 9:29 AM EDT 06/25/2019 9:38 AM EDT us Marisol Herrera MD LAB BLOOD BKR ORDERABLES Fin al Result Performing Organization Address [facility] Co de Phone Number [address] [address] documented in this encounter Visit Diagnoses Diagnosis Uncontrolled type 2 diabetes mellitus with hyperglycemia- Primary Special screening for malignant neoplasm of prostate Hyperlipidemia, unspecified hyperlipidemia type documented in this encounter Care Teams Pile Driving Superintendent Relationship Specialty Start Date End Date Marisol Herrera MD [address] [place] [address] PCP - General Internal Medicine 10/21/17 06/01/23 Unknown, Unknown, PCP - General 06/02/23 08/15/23 Batsheva Hamilton MD [address] [place] [address] PCP - General Internal Medicine 08/16/23 Marisol Herrera MD [address] [place] [address] Insurance Assigned Provider 01/09/20 07/12/20 Marisol Herrera MD [address] [place] [address] Insurance Assigned Provider 12/11/22 06/01/23 Marisol Herrera MD [address] [place] [address] Insurance Assigned Provider 12/11/22 09/10/23 documented as of this encounter Additional Source Comments The information contained in this document represents components of the legal health record. It is not the complete legal health record.[facility]
--- OUTSIDE RECORDS SUMMARY | 2025-07-31 09:05 | XMS_ITS | Encounter Summary ---
Author Organization [facility] Address [address] [facility] [address] [place] [address] Phone Care Team Providers Care Reserves Clerk Name Role Phone Marisol Herrera MD Primary Care Provider [phone] Marisol Herrera MD Unavailable [phone] Unknown, Unknown Primary Care Provider Batsheva Light MD Primary Care Provider [phone] Marisol Herrera MD Unavailable [phone] Encounter Details Date Type Department Care Team (Latest Contact Info) Description 06/16/2021 Transcribe Orders [address] [place] [address] Marisol Herrera MD [address] [place] [address] [email or web address] Uncontrolled type 2 diabetes mellitus with hyperglycemia [...] 07/31/2025 10:30 AM EST Nurse Only Jonnathan [facility] [address] [place] [address] Ariadna Pena, EDEN 22 [facility], 1st [place] [address] 09/30/2025 12:30 PM EST Office Visit [facility] 22 [place] [address] Ariadna Pena, EDEN 22 [facility], 1st [place] [address] [email or web address] documented as of this encounter Results * (ABNORMAL) Hemoglobin A1c (06/16/2021 9:42 AM EDT) HEMOGLOBIN A1C 10.2(H) 4.3 - 5.8 % [facility] Blood 06/16/2021 9:42 AM EDT 06/16/2021 9:45 AM EDT us Marisol Herrera MD LAB BLOOD BKR ORDERABLES Fin al Result Performing Organization Address City/State/[facility] Co de Phone Number [facility] [address] [place] [address] documented in this encounter Visit Diagnoses Diagnosis Uncontrolled type 2 diabetes mellitus with hyperglycemia- Primary documented in this encounter Care Teams Reserves Clerk Relationship Specialty Start Date End Date Marisol Herrera MD [address] [place] [address] PCP - General Internal Medicine 10/21/17 06/01/23 Unknown, Unknown, PCP - General 06/02/23 08/15/23 Batsheva Hamilton MD [address] [place] [address] PCP - General Internal Medicine 08/16/23 Marisol Herrera MD [address] [place] [address] Insurance Assigned Provider 4/8/23 9/27/23 Marisol Herrera MD [address] [place] [address] [email or web address] Insurance Assigned Provider 12/11/22 09/10/23 documented as of this encounter Additional Source Comments The information contained in this document represents components of the legal health record. It is not the complete legal health record.[facility]
--- OUTSIDE RECORDS SUMMARY | 2025-07-31 09:05 | XMS_ITS | Encounter Summary ---
Author Organization [facility] Address [address] [facility] [address] [place] [address] Phone Care Team Providers Care Horse Stud Manager Name Role Phone Marisol Herrera MD Primary Care Provider [phone] Marisol Herrera MD Unavailable [phone] Marisol Herrera MD Unavailable [phone] Unknown, Unknown Primary Care Provider Batsheva Light MD Primary Care Provider [phone] Marisol Herrera MD Unavailable [phone] Encounter Details Date Type Department Care Team (Latest Contact Info) Description 08/21/2018 Transcribe Orders [address] [place] [address] Marisol Herrera MD 25 [place] [address] [email or web address] Uncontrolled type 2 diabetes mellitus with hyperglycemia [...] 10:30 AM EST Nurse Only Jonnathan Garland [facility] [address] [place] [address] Ariadna Pena, EDEN 22 [facility], 1st [place] [address] 09/30/2025 12:30 PM EST Office Visit [facility] 22 [place] [address] Ariadna Pena, EDEN [address] [facility], 1st [place] [address] [email or web address] documented as of this encounter Results * (ABNORMAL) Hemoglobin A1c (08/21/2018 7:48 AM EST) HEMOGLOBIN A1C 8.4(H) 4.3 - 5.8 % [facility] Blood 08/21/2018 7:48 AM EST 08/21/2018 7:50 AM EST us Marisol Herrera MD LAB BLOOD BKR ORDERABLES Fin al Result Performing Organization Address City/State/[facility] Co de Phone Number [facility] [address] [place] [address] documented in this encounter Visit Diagnoses Diagnosis Uncontrolled type 2 diabetes mellitus with hyperglycemia- Primary documented in this encounter Care Teams Horse Stud Manager Relationship Specialty Start Date End Date Marisol Herrera MD [address] [place] [address] PCP - General Internal Medicine 10/21/17 06/01/23 Unknown, Unknown, PCP - General 06/02/23 08/15/23 Batsheva Hamilton MD [address] [place] [address] PCP - General Internal Medicine 08/16/23 Marisol Herrera MD [address] [place] [address] [email or web address] Insurance Assigned Provider 01/09/20 07/12/20 Marisol Herrera MD [address] [place] [address] [email or web address] Insurance Assigned Provider 12/11/22 06/01/23 Marisol Herrera MD [address] [place] [address] [email or web address] Insurance Assigned Provider 12/11/22 09/10/23 documented as of this encounter Additional Source Comments The information contained in this document represents components of the legal health record. It is not the complete legal health record.[facility]
--- OUTSIDE RECORDS SUMMARY | 2025-07-31 09:05 | XMS_ITS | Encounter Summary ---
Author Organization [facility] Address [address] [facility] [address] [place] [address] Phone Care Team Providers Care Lpta Name Role Phone Marisol Herrera MD Primary Care Provider [phone] Marisol Herrera MD Unavailable [phone] Marisol Herrera MD Unavailable [phone] Unknown, Unknown Primary Care Provider Batsheva Light MD Primary Care Provider [phone] Marisol Herrera MD Unavailable [phone] Encounter Details Date Type Department Care Team (Late st Contact Info) Description 02/21/2018 Transcribe Orders [address] [place] [address] Marisol Herrera MD 25 [place] [address] 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 PCP - General Internal Medicine 10/21/17 06/01/23 Unknown, Unknown, PCP - General 06/02/23 08/15/23 Batsheva Hamilton MD [address] [place] [address] PCP - General Internal Medicine 08/16/23 Marisol Herrera MD [address] [place] [address] [email or web address] Insurance Assigned Provider 01/09/20 07/12/20 Marisol Herrera MD [address] [place] [address] [email or web address] Insurance Assigned Provider 12/11/22 06/01/23 Marisol Herrera MD [address] [place] [address] [email or web address] Insurance Assigned Provider 12/11/22 09/10/23 documented as of this encounter Additional Source Comments The information contained in this document represents components of the legal health record. It is not the complete legal health record.[facility]
--- OUTSIDE RECORDS SUMMARY | 2025-07-31 09:05 | XMS_ITS | Encounter Summary ---
Author Organization [facility] Address [address] [facility] [address] [place] [address] Phone Care Team Providers Care Doper Operator Name Role Phone Marisol Herrera MD Primary Care Provider [phone] Marisol Herrera MD Unavailable [phone] Marisol Herrera MD Unavailable [phone] Unknown, Unknown Primary Care Provider Batsheva Light MD Primary Care Provider [phone] Marisol Herrera MD Unavailable [phone] Encounter Details Date Type Department Care Team (Late st Contact Info) Description 06/04/2020 Procedure Pass [facility] Endoscopy Admitting Dept Virtual Department [address] [place] [address] Social History Tobacco Use Types Packs/Day Years [...] 10:30 AM EST Nurse Only Jonnathan Garland [facility] 22 [place] [address] Ariadna Pena CNP 22 [facility], 1st [place] [address] 09/30/2025 12:30 PM EST Office Visit [facility] 22 [place] [address] Ariadna Pena, EDEN 22 [facility], 1st [place] [address] documented as of this encounter Visit Diagnoses Not on filedocumented in this encounter Care Teams Doper Operator Relationship Specialty Start Date End Date Marisol Herrera MD [address] [place] [address] PCP - General Internal Medicine 10/21/17 06/01/23 Unknown, Miles, MD PCP - General 06/02/23 08/15/23 Batsheva Hamilton MD [address] [place] [address] PCP - General Internal Medicine 08/16/23 Marisol Herrera MD [address] [place] [address] Insurance Assigned Provider 01/09/20 07/12/20 Marisol Herrera MD [address] [place] [address] Insurance Assigned Provider 12/11/22 06/01/23 Marisol Herrera MD 25 [place] [address] Insurance Assigned Provider 12/11/22 09/10/23 documented as of this encounter Additional Source Comments The information contained in this document represents components of the legal health record. It is not the complete legal health record.[facility]
--- OUTSIDE RECORDS SUMMARY | 2025-07-31 09:05 | XMS_ITS | Encounter Summary ---
Author Organization [facility] Address [address] [facility] [address] [place] [address] Phone Care Team Providers Care Net Sql Developer Name Role Phone Marisol Herrera MD Primary Care Provider [phone] Marisol Herrera MD Unavailable [phone] Unknown, Unknown Primary Care Provider Batsheva Light MD Primary Care Provider [phone] Marisol Herrera MD Unavailable [phone] Encounter Details Date Type Department Care Team (Latest Contact Info) Description 09/11/2020 Transcribe Orders [address] [place] [address] Marisol Herrera MD [address] [place] [address] [email or web address] Uncontrolled type 2 diabetes mellitus with hyperglycemia [...] 07/31/2025 10:30 AM EST Nurse Only Jonnathan [facility] [address] [place] [address] Ariadna Pena, EDEN 22 [facility], 1st [place] [address] 09/30/2025 12:30 PM EST Office Visit [facility] 22 [place] [address] Ariadna Pena, EDEN 22 [facility], 1st [place] [address] [email or web address] documented as of this encounter Results * (ABNORMAL) Hemoglobin A1c (09/11/2020 8:51 AM EST) HEMOGLOBIN A1C 8.3(H) 4.3 - 5.8 % [facility] Blood 09/11/2020 8:51 AM EST 09/11/2020 8:54 AM EST us Marisol Herrera MD LAB BLOOD BKR ORDERABLES Fin al Result Performing Organization Address City/State/[facility] Co de Phone Number [facility] 30 [place] [address] documented in this encounter Visit Diagnoses Diagnosis Uncontrolled type 2 diabetes mellitus with hyperglycemia- Primary documented in this encounter Care Teams Net Sql Developer Relationship Specialty Start Date End Date Marisol Herrera MD [address] [place] [address] PCP - General Internal Medicine 10/21/17 06/01/23 Unknown, Unknown, PCP - General 06/02/23 08/15/23 Batsheva Hamilton MD [address] [place] [address] PCP - General Internal Medicine 08/16/23 Marisol Herrera MD [address] [place] [address] Insurance Assigned Provider 12/11/22 06/01/23 Marisol Herrera MD [address] [place] [address] Insurance Assigned Provider 12/11/22 09/10/23 documented as of this encounter Additional Source Comments The information contained in this document represents components of the legal health record. It is not the complete legal health record.[facility]
--- OUTSIDE RECORDS SUMMARY | 2025-07-31 09:05 | XMS_ITS | Encounter Summary ---
Author Organization [facility] Address [address] [facility] [address] [place] [address] Phone Care Team Providers Care Ultrasound Manager Name Role Phone Marisol Herrera MD Primary Care Provider [phone] Marisol Herrera MD Unavailable [phone] Unknown, Unknown Primary Care Provider Batsheva Light MD Primary Care Provider [phone] Marisol Herrera MD Unavailable [phone] Encounter Details Date Type Department Care Team (Late Contact Info) Description 11/27/2021 Transcribe Orders [facility] [address] [place] [address] Marisol Herrera MD [address] [place] [address] [email or web address] Social History Tobacco Use Types Packs/Day Years [...] 10:30 AM EST Nurse Only Jonnathan Garland [facility] [address] [place] [address] Ariadna Pena CNP 22 [facility], 1st [place] [address] 09/30/2025 12:30 PM EST Office Visit [facility] 22 [place] [address] Ariadna Pena, EDEN 22 [facility], 1st [place] [address] documented as of this encounter Visit Diagnoses Not on filedocumented in this encounter Care Teams Ultrasound Manager Relationship Specialty Start Date End Date Marisol Herrera MD [address] [place] [address] PCP - General Internal Medicine 10/21/17 06/01/23 Unknown, Unknown, MD PCP - General 06/02/23 08/15/23 Batsheva Hamilton MD [address] [place] [address] PCP - General Internal Medicine 08/16/23 Marisol Herrrea MD [address] [place] [address] Insurance Assigned Provider 12/11/22 06/01/23 Marisol Herrera MD [address] [place] [address] Insurance Assigned Provider 12/11/22 09/10/23 documented as of this encounter Additional Source Comments The information contained in this document represents components of the legal health record. It is not the complete legal health record.[facility]
--- OUTSIDE RECORDS SUMMARY | 2025-07-31 09:05 | XMS_ITS | Encounter Summary ---
Author Organization [facility] Address [address] [facility] [address] [place] [address] Phone Care Team Providers Care Investigation Division Lieutenant Name Role Phone Marisol Herrera MD Primary Care Provider + [phone] Marisol Herrera MD Unavailable [phone] Unknown, Unknown Primary Care Provider Batsheva Light MD Primary Care Provider [phone] Marisol Herrera MD Unavailable [phone] Encounter Details Date Type Department Care Team (Latest Contact Info) Description 10/16/2021 Transcribe Orders [address] [place] [address] Marisol Herrera MD [address] [place] [address] [email or web address] Hyperlipidemia, unspecified hyperlipidemia type (Primary Dx) Social [...] 07/31/2025 10:30 AM EST Nurse Only Jonnathan [facility] [address] [place] [address] Ariadna Pena, EDEN 22 [facility], 1st [place], [place] [phone] [email or web address] 09/30/2025 12:30 PM EST Office Visit [facility] [address] [place] [address] Ariadna Pena CNP 22 [facility], 1st [place] [address] [email or web address] documented as of this encounter Results * (ABNORMAL) Lipid panel (10/16/2021 9:37 AM EST) HDL 44 mg/dL [facility] Comment: Interpretation <40 mg/dL: Low HDL cholesterol (major risk factor for CHD) Greater than or equal to 60 mg/dL: High HDL cholesterol ( negative risk factor for CHD) HDL - cholesterol is affected by a number of factors, e.g. smoking, excerise, hormones, sex and age. CHOLESTEROL 169 0 - 240 mg/dL [facility] TRIGLYCERIDES 238(H) 30 - 160 mg/dL [facility] LDL 77 50 - 129 mg/dL [facility] Comment: LDL levels in terms of risk for coronary heart disease: <100 mg/dL: Optimal 100-129 mg/dL: Near or above optimal 130-159 mg/dL: Borderline high 160-189 mg/dL: High >190 mg/dL: Very High CARDIAC RISK RATIO 3.8 3.4 - 5.0 [facility] Blood 10/16/2021 9:37 AM EST 10/16/2021 9:39 AM EST us Marisol Herrera MD LAB BLOOD BKR ORDERABLES Fin al Result [facility] [address] [place] [address] documented in this encounter Visit Diagnoses Diagnosis Hyperlipidemia, unspecified hyperlipidemia type- Primary documented in this encounter Care Teams Investigation Division Lieutenant Relationship Specialty Start Date End Date Marisol Herrera MD [address] [place] [address] 1 [place] [address] PCP - General Internal Medicine 10/21/17 06/01/23 Unknown, Unknown, PCP - General 06/02/23 08/15/23 Batsheva Hamilton MD [address] [place] [address] PCP - General Internal Medicine 08/16/23 Marisol Herrera MD [address] [place] [address] Insurance Assigned Provider 12/11/22 06/01/23 Marisol Herrera MD [address] [place] [address] [email or web address] Insurance Assigned Provider 12/11/22 09/10/23 documented as of this encounter Additional Source Comments The information contained in this document represents components of the legal health record. It is not the complete legal health record.[facility]
[2025-07-31 10:41] LABS: MANUAL DIFF FLAG NO
[2025-07-31 11:10] LABS: Hematocrit 44.5 % (42.0-52.0); Hemoglobin 14.8 g/dl (14.0-18.0); Imm Gran Abs Auto 0.03 X10*3/uL (0.00-0.03); Imm Gran Pct Auto 0.4 % (0.0-0.4); Lymphocytes Absolute Auto 3.1 X10*3/uL (1.2-4.9); Mean Corpuscular HGB Conc 33.3 g/dl (31.0-36.0); Mean Corpuscular Hemoglobin 30.9 pg (27.0-33.0); Mean Corpuscular Volume 92.9 fL (80.0-98.0); NRBC Abs Auto 0.000 X10*3/uL (0.0-0.012); NRBC Pct Auto 0.0 /100WBC (0.0-0.2); Platelet Count 271 X10*3/uL (160-400); Red Blood Count 4.79 X10*6/uL (4.60-5.80); White Blood Count 7.6 X10*3/uL (4.8-10.8)
[2025-07-31 11:18] LABS: Microalbum/Creatinine Ratio Ur 10.1 ug/mg cr (<30)
[2025-07-31 12:54] LABS: Alanine Aminotransferase 18 U/L (0-40); Albumin Level 4.9 g/dL (3.5-5.0); Alkaline Phosphatase 66 U/L (39-117); Anion Gap 13 (12-20); Aspartate Amino Transferase 22 U/L (5-37); Blood Urea Nitrogen 23 mg/dL (9-16); Calcium 10.3 mg/dL (8.4-10.2); Carbon Dioxide 26 mmol/L (22-29); Chloride 106 mmol/L (96-108); Cholesterol 166 mg/dL (<200); Estimated Glomerular Filt Rate > 60; HDL Cholesterol 43 mg/dL (>40); Potassium 4.5 mmol/L (3.3-5.1); Sodium 140 mmol/L (135-145); Total Protein 7.5 g/dL (6.5-8.0); Triglycerides 129 mg/dL (<150)
== END 2025-07-31 08:44 | disposition home or self-care (01) ==
LOC: HO.HMGCLDS 08:43
PROVIDERS: PCP Internal Medicine; Visit Provider Internal Medicine
DX: I10 Essential (primary) hypertension (principal); E11.9 Type 2 diabetes mellitus without complications; E78.5 Hyperlipidemia, unspecified
CPT/HCPCS: 36415; 80053; 80061; 82043; 82570; 83036; 85025

== ENCOUNTER 2025-08-05 11:42 | Outpatient (AMB) | payer MEDICARE, OTHER, SELFPAY ==
[2025-08-05 11:48] VITALS: BP 116/64; PULSE 103; RESP 17; O2SAT 97; BMI 28.2
--- NOTE | 2025-08-05 11:48 | MHC.PC.OV ---
Vital Signs 08/05/25 11:48 Height 5 ft 7 in Weight 180 lb BMI 28.2 BP 116/64 Blood Pressure Location Lt brachial Position Sitting Respiration 17 Pulse 103 H Pulse Source Pulse Oximeter Pulse Oximetry (%) 97 Oxygen Delivery Method Room Air Intake Visit Reasons: 3 months f/up Intake Note: Pt is here today for 3 months follow up visit on labs. Allergies No Known Allergies Allergy (Verified 08/05/25 11:50) Medication List - Last Reconciled 08/05/25 by Batsheva Hamilton MD diabetic supplies, miscellan. DIABETIC SHOES fluticasone propionate 50 mcg/actuation sprays intranasal Jardiance (empagliflozin) 25 mg PO DAILY NS lisinopril 40 mg PO DAILY metformin 1,000 mg (2 x 500 mg) PO BID Ozempic (semaglutide) 2 mg (0.75 mL) subcut QWEEK NS pen needle, diabetic Use to inject insulin once a day NS simvastatin 40 mg PO BEDTIME Tresiba FlexTouch U-100 (insulin degludec) 40 units (0.4 mL) subcut DAILY NS Tobacco use date assessed: 08/05/25 Fall risk assessment: No Falls in past year Last assessed Fall Risk: 08/05/25 Dental Screening Dental Screen Date: 04/30/25 HPI 3 months f/up HPI Details Patient presents for follow-up of type 2 diabetes. She has not been compliant with ADA diet. Patient reports glucose readings around 200 in the mornings. He has been reluctant to increase the dose of Tresiba. Patient denies polyuria polydipsia. Hypertension is controlled on current medications. [facility] Medical History DM type 2 (diabetes mellitus, type 2) Hyperlipemia HTN (hypertension) Surgical History Hx of colonoscopy Family History Father Diabetes Mother Diabetes Brother Diabetes Sister Diabetes Social History Housing: House Patient Tobacco Use Status: Former Tobacco user (50 years ago) e-Cigarette/Vaping Use: Never Used service: No Current occupational status: retired Cognitive needs: No Hearing needs: No Vision needs: Yes Questionnaire Thrive Questionnaire Date Thrive assessed: 10/10/24 ALLY-7 AMB Questionnaire ALLY-7 Date ALLY - 7 assessed: 04/30/25 Source: Developed by Drs. Júnior Xie, Sirena Pereyra, Omkar Howrad and colleagues, with an educational celine from [employer]. Review of Systems Const All systems reviewed & are unremarkable except as noted in HPI and below ENT Reports no additional complaints Card Reports no additional complaints Resp Reports no additional complaints GI Reports no additional complaints Physical exam (Primary Care) Vital Signs: Last Vital Signs Pulse 103 H 08/05/25 11:48 Resp 17 08/05/25 11:48 BP 116/64 08/05/25 11:48 Pulse Ox 97 08/05/25 11:48 Oxygen Delivery Method Room Air 08/05/25 11:48 BMI result Body Mass Index 28.2 Tobacco/Smoking Status: Tobacco use Status Tobacco use date assessed 08/05/25 08/05/25 11:54 Patient Tobacco Use Status Former Tobacco user (50 08/05/25 11:54 years ago) e-Cigarette/Vaping Use Never Used 08/05/25 11:54 Thrive Assessment: Date of Thrive Assessment Date Thrive assessed 10/10/24 08/05/25 11:54 Const General: no acute distress HENMT Head: Yes normal to inspection Mouth: Normal oral and palatal mucosa present Neck Neck: Yes supple Resp Effort & Inspection: normal respiratory effort Auscultation: clear to auscultation bilaterally Cardio Rhythm: regular rhythm Heart sounds: S1 normal heart sound present and S2 normal heart sound present GI Inspection: Yes normal to inspection Palpation (GI): Soft to palpation Coding Level of Care Code Est Pt Level 4 (79638) Diagnoses HTN (hypertension) I10 Hyperlipemia E78.5 DM type 2 (diabetes mellitus, type 2) E11.9 Assessment & Plan Assessment & Plan (1) HTN (hypertension): Code(s): I10 - Essential (primary) hypertension Category: Medical Plan: Continue Lisinopril (2) Hyperlipemia: Code(s): E78.5 - Hyperlipidemia, unspecified Category: Medical Plan: cont statin (3) DM type 2 (diabetes mellitus, type 2): Comment: > 10 years, f/u [facility] Code(s): E11.9 - Type 2 diabetes mellitus without complications Category: Medical Plan: A1C is 8.5, ADA diet, regular exercise, med compliance discussed, increase Tresiba to 40 units , cont Jardiance and Metformin, follow-up in 3 months with a fasting labs Orders: Orders Microalbumin, Random (w Creat) 3 Months E11.9 - Type 2 diabetes mellitus without complications, E78.5 - Hyperlipidemia, unspecified, I10 - Essential (primary) hypertension Comprehensive Dale. Panel Fast 3 Months E11.9 - Type 2 diabetes mellitus without complications, E78.5 - Hyperlipidemia, unspecified, I10 - Essential (primary) hypertension Complete Blood Count Auto Diff 3 Months E11.9 - Type 2 diabetes mellitus without complications, E78.5 - Hyperlipidemia, unspecified, I10 - Essential (primary) hypertension Hemoglobin A1c 3 Months E11.9 - Type 2 diabetes mellitus without complications, E78.5 - Hyperlipidemia, unspecified, I10 - Essential (primary) hypertension Lipid Panel 3 Months E11.9 - Type 2 diabetes mellitus without complications, E78.5 - Hyperlipidemia, unspecified, I10 - Essential (primary) hypertension Medications: Changed From Tresiba FlexTouch U-100 (insulin degludec) 35 units (0.35 mL) subcut DAILY 30 mL 3RF NS E11.9 - Type 2 diabetes mellitus without complications To Tresiba FlexTouch U-100 (insulin degludec) 40 units (0.4 mL) subcut DAILY 30 mL 3RF NS E11.9 - Type 2 diabetes mellitus without complications
--- OUTSIDE RECORDS SUMMARY | 2025-08-05 15:27 | XMS_ITS | Encounter Summary ---
Author Organization [facility] Address [address] [facility] [address] [place] [address] Phone Care Team Providers Care Structural Layout Worker Name Role Phone Marisol Herrera MD Primary Care Provider [phone] Marisol Herrera MD Unavailable [phone] Unknown, Unknown Primary Care Provider Batsheva Light MD Primary Care Provider [phone] Marisol Herrera MD Unavailable [phone] Encounter Details Date Type Department Care Team (Late Contact Info) Description 11/27/2021 Transcribe Orders [facility] [address] [place] [address] Marisol Herrera MD [address] [place] [phone] [email or web address] Social History Tobacco Use Types Packs/Day Years [...] Department Care Team (Late Contact Info) Description 09/30/2025 12:30 PM EST Office Visit [facility] [address] [place] [address] Ariadna Pena, [place] 22 [facility], 1st [place] [address] documented as of this encounter Visit Diagnoses Not on filedocumented in this encounter Care Teams Structural Layout Worker Relationship Specialty Start Date End Date Marisol Herrera MD [address] [place] [phone] PCP - General Internal Medicine 10/21/17 06/01/23 Unknown, Unknown, MD PCP - General 06/02/23 08/15/23 Batsheva Hamilton MD [address] [place] [address] PCP - General Internal Medicine 08/16/23 Marisol Herrera MD [address] [place] [phone] Insurance Assigned Provider 12/11/22 06/01/23 Marisol Herrera MD [address] [place] [phone] Insurance Assigned Provider 12/11/22 09/10/23 documented as of this encounter Additional Source Comments The information contained in this document represents components of the legal health record. It is not the complete legal health record.[facility]
--- OUTSIDE RECORDS SUMMARY | 2025-08-05 15:27 | XMS_ITS | Encounter Summary ---
Author Organization [facility] Address [address] [facility] [address] [place] [address] Phone Care Team Providers Care Pinion Staker Name Role Phone Marisol Herrera MD Primary Care Provider [phone] Marisol Herrera MD Unavailable [phone] Marisol Herrera MD Unavailable [phone] Unknown, Unknown Primary Care Provider Batsheva Light MD Primary Care Provider [phone] Marisol Herrera MD Unavailable [phone] Encounter Details Date Type Department Care Team (Latest Contact Info) Description 10/21/2017 Transcribe Orders [address] [place] [address] Marisol Herrera MD [address] [place] [phone] [email or web address] Uncontrolled type 2 diabetes mellitus with complication, [...] Care Team (Late st Contact Info) Description 09/30/2025 12:30 PM EST Office Visit [facility] [address] [place] [id number] Ariadna Pena, STRAIGHT LINE PRESS SETTER [address] [facility], 1st [place] [address] [email or web address] documented as of this encounter Results * Microalbumin/creatinine ratio, random urine (10/21/2017 8:48 AM EST) URINE MICROALBUMIN 0.2 0 - 2.3 mg/dL [facility] URINE CREATININE 71 mg/dL DIRECTOR OF SOLUTIONS ARCHITECTURE [facility] MICROALB/CRE RATIO NOT CALCULATED 0 - 20 mg/g Cre [facility] Comment:due to Microalbumin <1.2 Urine (Urine) 10/21/2017 8:4 8 AM EST 10/21/2017 8:52 AM EST us Marisol Herrera MD LAB URINE ORDERABLES Final R esult Performing Organization Address [facility] Co de Phone Number [facility] [address] [place] [address] * (ABNORMAL) Basic metabolic panel (10/21/2017 8:48 AM EST) SODIUM 136 133 - 146 mmol/L [facility] CHLORIDE 99 96 - 108 mmol/L [facility] POTASSIUM 4.6 3.3 - 5.1 mmol/L [facility] CO2 25 21 - 35 mmol/L [facility] BUN 20(H) 6 - 19 mg/dL [facility] CREATININE 0.60 0.5 - 1.5 mg/dL [facility] GLUCOSE 198(H) 70 - 99 mg/dL [facility] CALCIUM 9.9 8.4 - 10.3 mg/dL [facility] EGFR >60 60 - 1000 mL/min/1.7 3m2 [facility] Comment:Abnormal if <60. If patient is -Zambian, multiply the result by 1.21. ANION GAP 17 10 - 20 mmol/L [facility] Blood 10/21/2017 8:48 AM EST 10/21/2017 8:52 AM EST us Marisol Herrera MD LAB BLOOD BKR ORDERABLES Fin al Result Performing Organization Address City/[facility]/ZIP Co de Phone Number [address] [address] * Direct LDL (10/21/2017 8:48 AM EST) [...] reference intervals for this test in the [facility] Test Directory ([employer]). Performed by [facility], [address] [place] [id number] www.[email or web address], Jose Vu MD - Lab. Director Test Performed by: [facility] [address] [place] [id number] Blood 10/21/2017 8:48 AM EST 10/21/2017 8:51 AM EST Marisol Herrera MD LAB BLOOD BKR ORDERABLES Fin al Result Performing Organization Address [facility] de Phone Number [facility] * (ABNORMAL) Hemoglobin A1c (10/21/2017 8:48 AM EST) HEMOGLOBIN A1C 9.9(H) 4.3 - 5.8 % [facility] Blood 10/21/2017 8:48 AM EST 10/21/2017 8:52 AM EST us Marisol Herrera MD LAB BLOOD BKR ORDERABLES Fin al Result Performing Organization Address [facility] Co de Phone Number [address] [place] [address] documented in this encounter Visit Diagnoses Diagnosis Uncontrolled type 2 diabetes mellitus with complication, without long-term current use of insulin- Primary Hyperlipidemia, unspecified hyperlipidemia type Hypertension, unspecified type documented in this encounter Care Teams Pinion Staker Relationship Specialty Start Date End Date Marisol Herrera MD [address] [place] [phone] PCP - General Internal Medicine 10/21/17 06/01/23 Unknown, Unknown, MD PCP - General 06/02/23 08/15/23 Batsheva Hamilton MD [address] [place] [phone] PCP - General Internal Medicine 08/16/23 Marisol Herrera MD [address] [place] [phone] Insurance Assigned Provider 01/09/20 07/12/20 Marisol Herrera MD [address] [place] [phone] Insurance Assigned Provider 12/11/22 06/01/23 Marisol Herrera MD [address] [place] [phone] Insurance Assigned Provider 12/11/22 09/10/23 documented as of this encounter Additional Source Comments The information contained in this document represents components of the legal health record. It is not the complete legal health record.[facility]
--- OUTSIDE RECORDS SUMMARY | 2025-08-05 15:27 | XMS_ITS | Encounter Summary ---
Author Organization [facility] Address [address] [facility] [address] [place] [address] Phone Care Team Providers Care Order Takers Supervisor Name Role Phone Marisol Herrera MD Primary Care Provider [phone] Marisol Herrera MD Unavailable [phone] Unknown, Unknown Primary Care Provider Batsheva Light MD Primary Care Provider [phone] Marisol Herrera MD Unavailable [phone] Encounter Details Date Type Department Care Team (Latest Contact Info) Description 06/16/2021 Transcribe Orders [address] [place] [address] Marisol Herrera MD [address] [place] [address] [email or web address] Uncontrolled type 2 diabetes mellitus with hyperglycemia [...] Description 09/30/2025 12:30 PM EST Office Visit [facility] [address] [place] [address] Ariadna Pena, ED[place] 22 [facility], 1st [place] [address] documented as of this encounter Results * (ABNORMAL) Hemoglobin A1c (06/16/2021 9:42 AM EDT) HEMOGLOBIN A1C 10.2(H) 4.3 - 5.8 % [facility] Blood 06/16/2021 9:42 AM EDT 06/16/2021 9:45 AM EDT us Marisol Herrera MD LAB BLOOD BKR ORDERABLES Fin al Result [address] [address] documented in this encounter Visit Diagnoses Diagnosis Uncontrolled type 2 diabetes mellitus with hyperglycemia- Primary documented in this encounter Care Teams Order Takers Supervisor Relationship Specialty Start Date End Date Marisol Herrera MD [address] [place] [address] PCP - General Internal Medicine 10/21/17 06/01/23 Unknown, Unknown, MD PCP - General 06/02/23 08/15/23 Batsheva Hamilton MD [address] [place] [phone] PCP - General Internal Medicine 08/16/23 Marisol Herrera MD [address] [place] [phone] Insurance Assigned Provider 12/11/22 06/01/23 Marisol Herrera MD [address] [place] [phone] Insurance Assigned Provider 12/11/22 09/10/23 documented as of this encounter Additional Source Comments The information contained in this document represents components of the legal health record. It is not the complete legal health record.[facility]
--- OUTSIDE RECORDS SUMMARY | 2025-08-05 15:27 | XMS_ITS | Encounter Summary ---
Author Organization [facility] Address [address] [facility] [address] [place] [address] Phone Care Team Providers Care Project Scheduler Name Role Phone Marisol Herrera MD Primary Care Provider [phone] Marisol Herrera MD Unavailable [phone] Marisol Herrera MD Unavailable [phone] Unknown, Unknown Primary Care Provider Batsheva Light MD Primary Care Provider [phone] Marisol Herrera MD Unavailable [phone] Encounter Details Date Type Department Care Team (Late st Contact Info) Description 05/02/2018 Transcribe Orders [address] [place] [address] Marisol Herrera MD [address] [place] [address] [email or web address] Uncontrolled diabetes mellitus type 2 without complications, unspecified whether nylon mender insulin use (Primary Dx) Social History Tobacco [...] Description 09/30/2025 12:30 PM EST Office Visit [facility] [address] [place] [address] Ariadna Pena, [place] 22 [facility], 1st [place] [address] [email or web address] documented as of this encounter Results * (ABNORMAL) Hemoglobin A1c (05/02/2018 9:13 AM EDT) HEMOGLOBIN A1C 8.3(H) 4.3 - 5.8 % [facility] Blood 05/02/2018 9:13 AM EDT 05/02/2018 9:15 AM EDT us Marisol Herrera MD LAB BLOOD BKR ORDERABLES Fin al Result [address] [address] documented in this encounter Visit Diagnoses Diagnosis Uncontrolled diabetes mellitus type 2 without complications, unspecified whether nylon mender insulin use- Primary documented in this encounter Care Teams Project Scheduler Relationship Specialty Start Date End Date Marisol Herrera MD [address] [place] [address] [email or web address] PCP - General Internal Medicine 10/21/17 06/01/23 Unknown, Unknown, MD PCP - General 06/02/23 08/15/23 Batsheva Hamilton MD [address] [place] [phone] PCP - General Internal Medicine 08/16/23 Marisol Herrera MD [address] [place] [address] [email or web address] Insurance Assigned Provider 01/09/20 07/12/20 Marisol Herrera MD [address] [place] [address] [email or web address] Insurance Assigned Provider 12/11/22 06/01/23 Marisol Herrera MD [address] [place] [phone] [email or web address] Insurance Assigned Provider 12/11/22 09/10/23 documented as of this encounter Additional Source Comments The information contained in this document represents components of the legal health record. It is not the complete legal health record.[facility]
--- OUTSIDE RECORDS SUMMARY | 2025-08-05 15:27 | XMS_ITS | Encounter Summary ---
Author Organization [facility] Address [address] [facility] [address] [place] [address] Phone Care Team Providers Care Refrigeration Supervisor Name Role Phone Marisol Herrera MD Primary Care Provider [phone] Marisol Herrera MD Unavailable [phone] Marisol Herrera MD Unavailable [phone] Unknown, Unknown Primary Care Provider Batsheva Light MD Primary Care Provider [phone] Marisol Herrera MD Unavailable [phone] Encounter Details Date Type Department Care Team (Latest Contact Info) Description 08/21/2018 Transcribe Orders [address] [place] [address] Marisol Herrera MD [address] [place] [address] [email or web address] Uncontrolled type 2 diabetes mellitus with hyperglycemia [...] 09/30/2025 12:30 PM EST Office Visit [facility] [address] [place] [address] Ariadna Pena, [place] 22 [facility], 1st [place] [address] [email or web address] documented as of this encounter Results * (ABNORMAL) Hemoglobin A1c (08/21/2018 7:48 AM EST) HEMOGLOBIN A1C 8.4(H) 4.3 - 5.8 % [facility] Blood 08/21/2018 7:48 AM EST 08/21/2018 7:50 AM EST us Marisol Herrera MD LAB BLOOD BKR ORDERABLES Fin al Result [facility] [address] [place] [address] documented in this encounter Visit Diagnoses Diagnosis Uncontrolled type 2 diabetes mellitus with hyperglycemia- Primary documented in this encounter Care Teams Refrigeration Supervisor Relationship Specialty Start Date End Date Marisol Herrera MD [address] [place] [phone] PCP - General Internal Medicine 10/21/17 06/01/23 Unknown, Unknown, PCP - General 06/02/23 08/15/23 Batsheva Hamilton MD [address] [place] [phone] PCP - General Internal Medicine 08/16/23 Marisol Herrera MD [address] [place] [address] Insurance Assigned Provider 01/09/20 07/12/20 Marisol Herrera MD [address] [place] [phone] Insurance Assigned Provider 12/11/22 06/01/23 [place] [address] Insurance Assigned Provider 12/11/22 09/10/23 documented as of this encounter Additional Source Comments The information contained in this document represents components of the legal health record. It is not the complete legal health record.[facility]
--- OUTSIDE RECORDS SUMMARY | 2025-08-05 15:27 | XMS_ITS | Encounter Summary ---
Author Organization [facility] Address [address] [facility] [address] [place] [address] Phone Care Team Providers Care Horse Breaker Name Role Phone Marisol Herrera MD Primary Care Provider [phone] Marisol Herrera MD Unavailable [phone] Marisol Herrera MD Unavailable [phone] Unknown, Unknown Primary Care Provider Batsheva Light MD Primary Care Provider [phone] Marisol Herrera MD Unavailable [phone] Encounter Details Date Type Department Care Team (Late st Contact Info) Description 06/04/2020 Procedure Pass [facility] Endoscopy Admitting Dept Virtual Department [address] [place] [phone] Social History Tobacco Use Types Packs/Day Years [...] 09/30/2025 12:30 PM EST Office Visit [facility] [address] [place] [address] Ariadna Pena CNP [address] [facility], 1st [place] [address] documented as of this encounter Visit Diagnoses Not on filedocumented in this encounter Care Teams Horse Breaker Relationship Specialty Start Date End Date Marisol Herrera MD [address] [place] [address] PCP - General Internal Medicine 10/21/17 06/01/23 Unknown, Unknown, MD PCP - General 06/02/23 08/15/23 Batsheva Hamilton MD [facility] [place] [address] PCP - General Internal Medicine 08/16/23 Marisol Herrera MD [address] [place] [phone] Insurance Assigned Provider 01/09/20 07/12/20 Marisol Herrera MD [address] [place] [phone] Insurance Assigned Provider 12/11/22 06/01/23 Marisol Herrera MD [address] [place] [phone] Insurance Assigned Provider 12/11/22 09/10/23 documented as of this encounter Additional Source Comments The information contained in this document represents components of the legal health record. It is not the complete legal health record.[facility]
--- OUTSIDE RECORDS SUMMARY | 2025-08-05 15:27 | XMS_ITS | Encounter Summary ---
Author Organization [facility] Address [address] [facility] [address] [place] [address] Phone Care Team Providers Care Building Performance Specialist Name Role Phone Marisol Herrera MD Primary Care Provider [phone] Marisol Herrera MD Unavailable [phone] Marisol Herrera MD Unavailable [phone] Unknown, Unknown Primary Care Provider Batsheva Light MD Primary Care Provider [phone] Marisol Herrera MD Unavailable [phone] Encounter Details Date Type Department Care Team (Late st Contact Info) Description 01/01/2020 Transcribe Orders [address] [place] [address] Marisol Herrera MD [address] [place] [address] [email or web address] Type II diabetes mellitus with hyperosmolarity, uncontrolled [...] Description 09/30/2025 12:30 PM EST Office Visit [facility] [address] [place] [address] Ariadna Pena, EDEN 22 [facility], 1st [place] [address] documented as of this encounter Results * Microalbumin/creatinine ratio, random urine (01/01/2020 10:05 AM EDT) URINE MICROALBUMIN <1.2 0 - 2.3 mg/dL [facility] URINE CREATININE 39 mg/dL OPERATIONS CONSULTANT [facility] MICROALB/CRE RATIO NOT CALCULATED 0 - 20 mg/g Cre [facility] Comment:due to Microalbumin <1.2 Urine (Urine) 01/01/2020 10: 05 AM EDT 01/01/2020 10:10 AM EDT Marisol Herrera MD LAB URINE ORDERABLES Final R esult Performing Organization Address City/State/[facility] Co de Phone Number [facility] [address] [place] [address] * (ABNORMAL) Comprehensive metabolic panel (01/01/2020 9:58 AM EDT) SODIUM 137 133 - 146 mmol/L [facility] POTASSIUM 4.7 3.3 - 5.1 mmol/L [facility] CHLORIDE 100 96 - 108 mmol/L [facility] CO2 23 21 - 35 mmol/L [facility] BUN 24(H) 6 - 19 mg/dL [facility] CREATININE 0.70 0.5 - 1.5 mg/dL [facility] GLUCOSE 189(H) 70 - 99 mg/dL [facility] ALBUMIN 4.6 3.9 - 4.8 g/dL [facility] TOTAL PROTEIN 7.3 6.5 - 8.0 g/dL [facility] CALCIUM 9.8 8.4 - 10.3 mg/dL [facility] ALKALINE PHOSPHATASE 66 39 - 117 U/L [facility] TOTAL BILIRUBIN 0.9 0.0 - 1.2 mg/dL [facility] AST 21 0 - 37 U/L [facility] ALT 13 0 - 40 U/L [facility] GLOBULIN 2.7 1 - 4.8 g/dL [facility] EGFR 98 >59 mL/min/1.7 3m2 [facility] Comment:If patient is black, multiply result by 1.159. Estimated glomerular filtration rate calculated using the CKD-EPI equation. ANION GAP 19 10 - 20 mmol/L [facility] Blood 01/01/2020 9:58 AM EDT 01/01/2020 10:03 AM EDT Marisol Herrera MD LAB BLOOD BKR ORDERABLES Fin al Result Performing Organization Address [facility]/ZIP Co de Phone Number [address] [address] * CBC (01/01/2020 9:58 AM EDT) WBC 8.07 4.00 - 11.00 K/uL [facility] Comment:Note Reference Range updates to all CBC and Differential results. RBC 4.38 3.90 - 5.69 M/uL [facility] HGB 13.5 12.4 - 17.3 g/dL [facility] Comment:Note updated Referen ce Ranges for all CBC and Differential results. HCT 39.9 37.0 - 51.0 % [facility] PLT 277 140 - 430 K/uL [facility] MCV 91.1 78.0 - 97.0 fL [facility] MCH 30.8 25.0 - 33.0 pg [facility] MCHC 33.8 32.0 - 36.0 g/dL [facility] RDW 12.8 11.0 - 15.0 % [facility] MPV 11.1 8.4 - 12.8 [facility] NRBC 0.00 0 /100 WBCs [facility] ABSOLUTE NRBC 0.00 0 K/uL [facility] Blood 01/01/2020 9:58 AM EDT 01/01/2020 10:03 AM EDT Marisol Herrera MD LAB BLOOD BKR ORDERABLES Fin al Result Performing Organization Address [facility]/ZIP Co de Phone Number [address] [address] * (ABNORMAL) Hemoglobin A1c (01/01/2020 9:58 AM EDT) HEMOGLOBIN A1C 8.7(H) 4.3 - 5.8 % [facility] Blood 01/01/2020 9:58 AM EDT 01/01/2020 10:03 AM EDT us Marisol Herrera MD LAB BLOOD BKR ORDERABLES Fin al Result [address] [address] documented in this encounter Visit Diagnoses Diagnosis Type II diabetes mellitus with hyperosmolarity, uncontrolled- Primary Type II or unspecified type diabetes mellitus with hyperosmolarity, uncontrolled Essential hypertension, malignant documented in this encounter Care Teams Building Performance Specialist Relationship Specialty Start Date End Date Marisol Herrera MD [address] [place] [address] [email or web address] PCP - General Internal Medicine 10/21/17 06/01/23 Unknown, Unknown, PCP - General 06/02/23 08/15/23 Batsheva Hamilton MD [address] [place] [phone] PCP - General Internal Medicine 08/16/23 Marisol Herrera MD [address] [place] [phone] Insurance Assigned Provider 01/09/20 07/12/20 Marisol Herrera MD [address] [place] [phone] Insurance Assigned Provider 12/11/22 06/01/23 [place] [address] Insurance Assigned Provider 12/11/22 09/10/23 documented as of this encounter Additional Source Comments The information contained in this document represents components of the legal health record. It is not the complete legal health record.[facility]
--- OUTSIDE RECORDS SUMMARY | 2025-08-05 15:27 | XMS_ITS | Encounter Summary ---
Author Organization [facility] Address [address] [facility] [address] [place] [address] Phone Care Team Providers Care Slipper Maker Name Role Phone Marisol Herrera MD Primary Care Provider [phone] Marisol Herrera MD Unavailable [phone] Marisol Herrera MD Unavailable [phone] Unknown, Unknown Primary Care Provider Batsheva Light MD Primary Care Provider [phone] Marisol Herrera MD Unavailable [phone] Encounter Details Date Type Department Care Team (Late st Contact Info) Description 02/21/2018 Transcribe Orders [address] [place] [address] Marisol Herrera MD [address] [place] [address] [email or web address] 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 [...] Description 09/30/2025 12:30 PM EST Office Visit [facility] [address] [place] [address] Ariadna Pena, EDEN 22 [facility], 1st [place] [address] [email or web address] documented as of this encounter Results * (ABNORMAL) Hemoglobin A1c (02/21/2018 10:11 AM EDT) HEMOGLOBIN A1C 10.1(H) 4.3 - 5.8 % [facility] Blood 02/21/2018 10:1 1 AM EDT 02/21/2018 10:12 AM EDT us Marisol Herrera MD LAB BLOOD BKR ORDERABLES Darnell al Result [address] [address] documented in this encounter Visit Diagnoses Diagnosis 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- Primary Type II or unspecified type diabetes mellitus with renal manifestations, uncontrolled documented in this encounter Care Teams Slipper Maker Relationship Specialty Start Date End Date Marisol Herrera MD [address] [place] [address] [email or web address] PCP - General Internal Medicine 10/21/17 06/01/23 Unknown, Unknown, PCP - General 06/02/23 08/15/23 Batsheva Hamilton MD [address] [place] [address] PCP - General Internal Medicine 08/16/23 Marisol Herrera MD [address] [place] [address] [email or web address] Insurance Assigned Provider 01/09/20 07/12/20 Marisol Herrera MD [address] [place] [address] [email or web address] Insurance Assigned Provider 12/11/22 06/01/23 [place] [address] [email or web address] Insurance Assigned Provider 12/11/22 09/10/23 documented as of this encounter Additional Source Comments The information contained in this document represents components of the legal health record. It is not the complete legal health record.[facility]
--- OUTSIDE RECORDS SUMMARY | 2025-08-05 15:27 | XMS_ITS | Encounter Summary ---
Author Organization [facility] Address [address] [facility] [address] [place] [address] Phone Care Team Providers Care Breastfeeding Program Coordinator Name Role Phone Marisol Herrera MD Primary Care Provider [phone] Marisol Herrera MD Unavailable [phone] Marisol Herrera MD Unavailable [phone] Unknown, Unknown Primary Care Provider Batsheva Light MD Primary Care Provider [phone] Marisol Herrera MD Unavailable [phone] Encounter Details Date Type Department Care Team (Latest Contact Info) Description 06/25/2019 Transcribe Orders [address] [place] [address] Marisol Herrera MD [address] [place] [address] [email or web address] Uncontrolled type 2 diabetes mellitus with hyperglycemia [...] Description 09/30/2025 12:30 PM EST [facility] [address] [id number] Ariadna Pena, EDEN 22 [facility], 1st Floor [place], [place] [phone] [email or web address] documented as of this encounter Results * Microalbumin/creatinine ratio, random urine (06/25/2019 9:29 AM EDT) URINE MICROALBUMIN <1.2 0 - 2.3 mg/dL [facility] URINE CREATININE 48 mg/dL [facility] MICROALB/CRE RATIO NOT CALCULATED 0 - 20 mg/g Cre [facility] Comment:due to Microalbumin <1.2 Urine (Urine) 06/25/2019 9:2 9 AM EDT 06/25/2019 9:38 AM EDT us Marisol Herrera MD LAB URINE ORDERABLES Final R esult Performing Organization Address [facility] Co de Phone Number [address] [address] * PSA (screening) (06/25/2019 9:29 AM EDT) PSA 0.07 0 - 4.00 ng/mL [facility] Blood 06/25/2019 9:29 AM EDT 06/25/2019 9:38 AM EDT us Marisol Herrera MD LAB BLOOD BKR ORDERABLES Fin al Result Performing Organization Address [facility] Co de Phone Number [address] [address] * (ABNORMAL) Lipid panel (06/25/2019 9:29 AM EDT) HDL 47 mg/dL [facility] Comment: Interpretation <40 mg/dL: Low HDL cholesterol (major risk factor for CHD) Greater than or equal to 60 mg/dL: High HDL cholesterol ( negative risk factor for CHD) HDL - cholesterol is affected by a number of factors, e.g. smoking, excerise, hormones, sex and age. CHOLESTEROL 156 0 - 240 mg/dL [facility] TRIGLYCERIDES 123 30 - 160 mg/dL [facility] LDL 84 50 - 129 mg/dL [facility] Comment: LDL levels in terms of risk for coronary heart disease: <100 mg/dL: Optimal 100-129 mg/dL: Near or above optimal 130-159 mg/dL: Borderline high 160-189 mg/dL: High >190 mg/dL: Very High CARDIAC RISK RATIO 3.3(L) 3.4 - 5.0 [facility] Blood 06/25/2019 9:29 AM EDT 06/25/2019 9:38 AM EDT us Marisol Herrera MD LAB BLOOD BKR ORDERABLES Fin al Result Performing Organization Address City/[facility]/ZIP Co de Phone Number [address] [address] * (ABNORMAL) Hemoglobin A1c (06/25/2019 9:29 AM EDT) HEMOGLOBIN A1C 8.1(H) 4.3 - 5.8 % [facility] Blood 06/25/2019 9:29 AM EDT 06/25/2019 9:38 AM EDT us Marisol Herrera MD LAB BLOOD BKR ORDERABLES Fin al Result Performing Organization Address City/[facility] Co de Phone Number [address] [address] documented in this encounter Visit Diagnoses Diagnosis Uncontrolled type 2 diabetes mellitus with hyperglycemia- Primary Special screening for malignant neoplasm of prostate Hyperlipidemia, unspecified hyperlipidemia type documented in this encounter Care Teams Breastfeeding Program Coordinator Relationship Specialty Start Date End Date Marisol Herrera MD [address] [place] [address] [email or web address] PCP - General Internal Medicine 10/21/17 06/01/23 Unknown, Miles, PCP - General 06/02/23 08/15/23 Batsheva Hamilton MD [address] [place] [address] PCP - General Internal Medicine 08/16/23 Marisol Herrera MD [address] [place] [address] [email or web address] Insurance Assigned Provider 01/09/20 07/12/20 Marisol Herrera MD [address] [place] [phone] [email or web address] Insurance Assigned Provider 12/11/22 06/01/23 Marisol Herrera MD [address] [place] [address] [email or web address] Insurance Assigned Provider 12/11/22 09/10/23 documented as of this encounter Additional Source Comments The information contained in this document represents components of the legal health record. It is not the complete legal health record.[facility]
--- OUTSIDE RECORDS SUMMARY | 2025-08-05 15:27 | XMS_ITS | Encounter Summary ---
Author Organization [facility] Address [address] [facility] [address] [place] [address] Phone Care Team Providers Care Crap Game Box Person Name Role Phone Marisol Herrera MD Primary Care Provider [phone] Marisol Herrera MD Unavailable [phone] Marisol Herrera MD Unavailable [phone] Unknown, Unknown Primary Care Provider Batsheva Light MD Primary Care Provider [phone] Marisol Herrera MD Unavailable [phone] Encounter Details Date Type Department Care Team (Latest Contact Info) Description 02/22/2019 Transcribe Orders [address] [place] [address] Marisol Herrera MD [address] [place] [address] [email or web address] Uncontrolled type 2 diabetes mellitus with hypoglycemia, [...] Office Visit [facility] [address] [place] [address] Ariadna Pena, EDEN 22 [facility], 1st [address] [place], [place] [phone] [email or web address] documented as of this encounter Results * Microalbumin/creatinine ratio, random urine (02/22/2019 9:11 AM EDT) URINE MICROALBUMIN <1.2 0 - 2.3 mg/dL [facility] URINE CREATININE 93 mg/dL [facility] MICROALB/CRE RATIO NOT CALCULATED 0 - 20 mg/g Cre [facility] Comment:due to Microalbumin <1.2 Urine (Urine) 02/22/2019 9:1 1 AM EDT 02/22/2019 9:17 AM EDT us Marisol Herrera MD LAB URINE ORDERABLES Final R esult [facility] [address] [place] [address] * (ABNORMAL) Lipid panel (02/22/2019 9:11 AM EDT) HDL 45 mg/dL [facility] Comment: Interpretation <40 mg/dL: Low HDL cholesterol (major risk factor for CHD) Greater than or equal to 60 mg/dL: High HDL cholesterol ( negative risk factor for CHD) HDL - cholesterol is affected by a number of factors, e.g. smoking, excerise, hormones, sex and age. CHOLESTEROL 173 0 - 240 mg/dL [facility] TRIGLYCERIDES 215(H) 30 - 160 mg/dL [facility] LDL 85 50 - 129 mg/dL [facility] Comment: LDL levels in terms of risk for coronary heart disease: <100 mg/dL: Optimal 100-129 mg/dL: Near or above optimal 130-159 mg/dL: Borderline high 160-189 mg/dL: High >190 mg/dL: Very High CARDIAC RISK RATIO 3.8 3.4 - 5.0 C [facility] Blood 02/22/2019 9:11 AM EDT 02/22/2019 9:18 AM EDT us Marisol Herrera MD LAB BLOOD BKR ORDERABLES Fin al Result [address] [address] * (ABNORMAL) Hemoglobin A1c (02/22/2019 9:11 AM EDT) HEMOGLOBIN A1C 8.4(H) 4.3 - 5.8 % [facility] Blood 02/22/2019 9:11 AM EDT 02/22/2019 9:18 AM EDT Marisol Herrera MD LAB BLOOD BKR ORDERABLES Fin al Result Performing Organization Address City/[facility]/ZIP Co de Phone Number [address] [address] * (ABNORMAL) Comprehensive metabolic panel (02/22/2019 9:11 AM EDT) SODIUM 139 133 - 146 mmol/L [facility] POTASSIUM 4.5 3.3 - 5.1 mmol/L [facility] CHLORIDE 102 96 - 108 mmol/L [facility] CO2 23 21 - 35 mmol/L [facility] BUN 13 6 - 19 mg/dL [facility] CREATININE 0.70 0.5 - 1.5 mg/dL [facility] GLUCOSE 221(H) 70 - 99 mg/dL [facility] ALBUMIN 4.1 3.9 - 4.8 g/dL [facility] TOTAL PROTEIN 6.9 6.5 - 8.0 g/dL [facility] CALCIUM 10.2 8.4 - 10.3 mg/dL [facility] ALKALINE PHOSPHATASE 68 39 - 117 U/L [facility] TOTAL BILIRUBIN 0.7 0.0 - 1.2 mg/dL [facility] AST 18 0 - 37 U/L [facility] ALT 13 0 - 40 U/L [facility] GLOBULIN 2.8 1 - 4.8 g/dL [facility] EGFR 98 >59 mL/min/1.7 3m2 [facility] Comment:If patient is black, multiply result by 1.159. Estimated glomerular filtration rate calculated using the CKD-EPI equation. ANION GAP 19 10 - 20 mmol/L [facility] Blood 02/22/2019 9:11 AM EDT 02/22/2019 9:18 AM EDT us Marisol Herrera MD LAB BLOOD BKR ORDERABLES Fin al Result [facility] [address] [place] [address] documented in this encounter Visit Diagnoses Diagnosis Uncontrolled type 2 diabetes mellitus with hypoglycemia, unspecified hypoglycemia coma status- Primary Hyperlipidemia, unspecified hyperlipidemia type documented in this encounter Care Teams Crap Game Box Person Relationship Specialty Start Date End Date Marisol Herrera MD [address] [place] [address] PCP - General Internal Medicine 10/21/17 06/01/23 Unknown, Unknown, MD PCP - General 06/02/23 08/15/23 Batsheva Hamilton MD [address] [place] [address] PCP - General Internal Medicine 08/16/23 Marisol Herrera MD [address] [place] [phone] Insurance Assigned Provider 01/09/20 07/12/20 Marisol Herrera MD [address] [place] [phone] Insurance Assigned Provider 12/11/22 06/01/23 Marisol Herrera MD [address] [place] [phone] Insurance Assigned Provider 12/11/22 09/10/23 documented as of this encounter Additional Source Comments The information contained in this document represents components of the legal health record. It is not the complete legal health record.[facility]
--- OUTSIDE RECORDS SUMMARY | 2025-08-05 15:27 | XMS_ITS | Clinical Summary ---
Author Organization [facility] Address [address] [facility] [address] [place] [phone] Phone Care Team Providers Care Customer Pricing Manager Name Role Phone Batsheva Hamilton MD Primary Care Provider [phone] Allergies No known active allergies Medications cloNIDine [...] weeks to drop off at front desk receptionist or follow up appointment. Assessment & Plan [...] weeks to drop off at front desk receptionist or follow up appointment. Assessment & Plan [...] weeks to drop off at front desk receptionist or follow up appointment. Assessment & Plan [...] 12/21/22 to drop off at front desk receptionist or follow up appointment. Assessment & Plan [...] is encouraged to finish this out and picking tech the new dose as soon as possible [...] weeks to drop off at front desk receptionist or follow up appointment. Assessment & Plan [...] Description 07/22/2025 2:30 PM EST Nurse Only [address] [place] [address] Elda Joseph MD 07/18/2025 Telephone [facility] [address] [place] [address] [place] [address] Sofie Olson MA CLINICAL NOTES 07/11/2025 3:00 PM EST Nurse Only [facility] [address] [place] [address] [place] [address] Elda Joseph MD Type 2 diabetes mellitus with hyperglycemia, without long-term current use of insulin (Primary Dx) 07/01/2025 10:00 AM EDT Nurse Only [address] [place] [address] Ariadna Pena CNP Type 2 diabetes mellitus with hyperglycemia, without long-term current use of insulin (Primary Dx) 06/20/2025 10:30 AM EDT Nurse Only [facility] [address] [place] [address] [place] [address] Ariadna Pena CNP Type 2 diabetes mellitus with hyperglycemia, without long-term current use of insulin (Primary Dx) 06/10/2025 10:00 AM EDT Nurse Only [address] [place] [address] Elda Joseph MD Type 2 diabetes mellitus with hyperglycemia, without long-term current use of insulin (Primary Dx) 05/30/2025 9:45 AM EDT Nurse Only [facility] [address] [place] [address] Ariadna Pena CNP 05/20/2025 9:30 AM EDT Nurse Only [facility] [address] [place] [address] Ariadna Pena CNP 05/07/2025 10:00 AM EDT Nurse Only [facility] [address] [place] [address] Ariadna Pena, EDEN Type 2 diabetes mellitus [...] Description 09/30/2025 12:30 PM EST Office Visit [facility] [address] [place] [address] Ariadna Pena, ICU STAFF NURSE [address] [facility], 1st [place] [address] [email or web address] Health Maintenance Due Date Last Done Comments [...] PRESSURE 10/05/2025 04/04/2025 HEMOGLOBIN A1C 10/05/2025 04/04/2025, 03/09/2024, 09/03/2024, Additional history exists COLONOSCOPY 06/04/2027 06/04/2020 [...] Hemoglobin A1c 7.9(A) 4.2 - 5.6 % [email or web address] Other 04/04/2025 11:0 4 AM EDT us Ariadna Pena ICU STAFF NURSE LAB POCT ENTER/EDIT ORDERABLE S Final Result [email or web address] [address] [place] [address], [facility] * (ABNORMAL) Basic metabolic panel (07/20/2022 3:39 PM EST) SODIUM 136 133 - 146 mmol/L [facility] CHLORIDE 100 96 - 108 mmol/L [facility] POTASSIUM 4.4 3.3 - 5.1 mmol/L [facility] CO2 22 21 - 35 mmol/L [facility] BUN 26(H) 6 - 19 mg/dL [facility] CREATININE 0.70 0.5 - 1.5 mg/dL [facility] GLUCOSE 183(H) 70 - 99 mg/dL [facility] CALCIUM 10.3 8.4 - 10.3 mg/dL [facility] EGFR 99 >59 mL/min/1.7 3m2 [facility] Comment:Estimated glomerular filtration rate calculated using the CKD-EPI refit equation. ANION GAP 18 10 - 20 mmol/L [facility] Blood 07/20/2022 3:39 PM EST 07/20/2022 3:46 PM EST us Ariadna Pena ICU STAFF NURSE LAB BLOOD BKR ORDERABLES Rona [place] [address] * ENDOSCOPY, COLON (06/04/2020 8:41 AM EDT) Narrative Transcriptions Gamal Capellan MD - 06/04/2020 8:41 AM EDT Patient Name: Pierre Sauceda Attending MD:: GAMAL CAPELLAN MD Procedure Date: 06/04/2020 8:41 AM Date of : 1950 Age: 69 Admit Type: Outpatient Gender: Male Room: [facility] 05 Referring MD: Darby Sheth MD, WILMAN EUBANKS [...] monitored continuously. The Olympus adult variable colonoscope [id number] #1was introduced through the anus and advanced [...] 8:41 AM Procedure Code(s): --- Professional --- 90074, Colonoscopy, flexible; with removal of tumor(s), polyp(s), or other lesion(s) by snare technique --- Technical --- 68813, Colonoscopy, flexible; with removal of tumor(s), polyp(s), [...] or abscess without bleeding CPT copyright 2018 [employer]. All rights reserved. The codes documented in this report are preliminary and upon chartered wealth manager reviewmay be revised to meet current compliance requirements. Procedure Date: 06/04/2020 8:41:[address] [place] [address] Darby Sheth MD GI PROCEDURE ORDERABLES Fin al Result from Last 3 Months or Most Recently Relevant to Health Maintenance Insurance MEDICARE PART A & B MEDICARE ENHANCE SUPPLEMENT [facility] Address: [facility] [id number] [place] [address] MEDICARE PART A & B MEDICARE ENHANCE SUPPLEMENT MEDICARE PART A & [place] [address] [address] MEDICARE ENHANCE SUPPLEMENT MEDICARE PART A & B [facility] MEDICARE ENHANCE SUPPLEMENT 1 [place] [address] MEDICARE PART A & B MEDICARE ENHANCE SUPPLEMENT [facility] Address: [facility] 147850 [place] F[place] [address] [address] [place] [address] MEDICARE PART A & [place] [address] [address] MEDICARE ENHANCE SUPPLEMENT MEDICARE PART A & B [place] MEDICARE ENHANCE SUPPLEMENT [facility] Address: [facility] [id number] [place] [address] MEDICARE PART A & B [facility] MEDICARE ENHANCE SUPPLEMENT MEDICARE PART A & B [facility] MEDICARE ENHANCE SUPPLEMENT Care Teams Customer Pricing Manager Relationship Specialty Start Date End Date Batsheva Hamilton MD [address] [place], [place] [id number] PCP - General Internal Medicine 08/16/23 Additional Source Comments The information contained in this document represents components of the legal health record. It is not the complete legal health record.[facility]
--- OUTSIDE RECORDS SUMMARY | 2025-08-05 15:27 | XMS_ITS | Encounter Summary ---
Author Organization [facility] Address [address] [facility] [address] [place] [address] Phone Care Team Providers Care Inorganic Chemist Name Role Phone Marisol Herrera MD Primary Care Provider [phone] Marisol Herrera MD Unavailable [phone] Unknown, Unknown Primary Care Provider Batsheva Light MD Primary Care Provider [phone] Marisol Herrera MD Unavailable [phone] Encounter Details Date Type Department Care Team (Latest Contact Info) Description 09/11/2020 Transcribe Orders [address] [place] [address] Marisol Herrera MD [address] [place] [address] [email or web address] Uncontrolled type 2 diabetes mellitus with hyperglycemia [...] Description 09/30/2025 12:30 PM EST Office Visit [facility] [address] [place] [address] Ariadna Pena, EDEN [address] [facility], 1st [place] [address] [email or web address] documented as of this encounter Results * (ABNORMAL) Hemoglobin A1c (09/11/2020 8:51 AM EST) HEMOGLOBIN A1C 8.3(H) 4.3 - 5.8 % [facility] Blood 09/11/2020 8:51 AM EST 09/11/2020 8:54 AM EST us Marisol Herrera MD LAB BLOOD BKR ORDERABLES Fin al Result [address] [address] documented in this encounter Visit Diagnoses Diagnosis Uncontrolled type 2 diabetes mellitus with hyperglycemia- Primary documented in this encounter Care Teams Inorganic Chemist Relationship Specialty Start Date End Date Marisol Herrera MD [address] [place] [address] PCP - General Internal Medicine 10/21/17 06/01/23 Unknown, Unknown, PCP - General 06/02/23 08/15/23 Batsheva Hamilton MD [address] [place] [address] PCP - General Internal Medicine 08/16/23 Marisol Herrera MD [address] [place] [phone] Insurance Assigned Provider 12/11/22 06/01/23 Marisol Herrera MD [address] [place] [phone] Insurance Assigned Provider 12/11/22 09/10/23 documented as of this encounter Additional Source Comments The information contained in this document represents components of the legal health record. It is not the complete legal health record.[facility]
--- OUTSIDE RECORDS SUMMARY | 2025-08-05 15:27 | XMS_ITS | Encounter Summary ---
Author Organization [facility] Address [address] [facility] [address] [place] [address] Phone Care Team Providers Care Rug Measurer Name Role Phone Marisol Herrera MD Primary Care Provider [phone] Marisol Herrera MD Unavailable [phone] Unknown, Unknown Primary Care Provider Batsheva Light MD Primary Care Provider [phone] Marisol Herrera MD Unavailable [phone] Encounter Details Date Type Department Care Team (Latest Contact Info) Description 10/16/2021 Transcribe Orders [address] [place] [address] Marisol Herrera MD [address] [place] [phone] [email or web address] Hyperlipidemia, unspecified hyperlipidemia type (Primary Dx) Social [...] Description 09/30/2025 12:30 PM EST Office Visit [facility] [address] [place] [address] Ariadna Pena, EDEN [address] [facility], 1st [address] [place], [place] [phone] [email or web address] documented as of this encounter Results * (ABNORMAL) Lipid panel (10/16/2021 9:37 AM EST) HDL 44 mg/dL Comment: Interpretation <40 mg/dL: Low HDL cholesterol (major risk factor for CHD) Greater than or equal to 60 mg/dL: High HDL cholesterol ( negative risk factor for CHD) HDL - cholesterol is affected by a number of factors, e.g. smoking, excerise, hormones, sex and age. CHOLESTEROL 169 0 - 240 mg/dL TRIGLYCERIDES 238(H) 30 - 160 mg/dL LDL 77 50 - 129 mg/dL Comment: LDL levels in terms of risk for coronary heart disease: <100 mg/dL: Optimal 100-129 mg/dL: Near or above optimal 130-159 mg/dL: Borderline high 160-189 mg/dL: High >190 mg/dL: Very High CARDIAC RISK RATIO 3.8 3.4 - 5.0 [facility] Blood 10/16/2021 9:37 AM EST 10/16/2021 9:39 AM EST us Marisol Herrera MD LAB BLOOD BKR ORDERABLES Fin al Result Performing Organization Address City/State/[facility] Co de Phone Number [address] [place] [address] documented in this encounter Visit Diagnoses Diagnosis Hyperlipidemia, unspecified hyperlipidemia type- Primary documented in this encounter Care Teams Rug Measurer Relationship Specialty Start Date End Date Marisol Herrera MD [address] [place] [address] [email or web address] PCP - General Internal Medicine 10/21/17 06/01/23 Unknown, Miles, PCP - General 06/02/23 08/15/23 Batsheva Hamilton MD [place] [address] PCP - General Internal Medicine 08/16/23 Marisol Herrera MD [address] [place] [phone] [email or web address] Insurance Assigned Provider 12/11/22 06/01/23 Marisol Herrera MD [address] [place] [address] [email or web address] Insurance Assigned Provider 12/11/22 09/10/23 documented as of this encounter Additional Source Comments The information contained in this document represents components of the legal health record. It is not the complete legal health record.[facility]
== END 2025-08-05 12:49 | disposition home or self-care (01) ==
LOC: HO.HMCC 11:43
PROVIDERS: PCP Internal Medicine; Visit Provider Internal Medicine
DX: I10 Essential (primary) hypertension (principal); E78.5 Hyperlipidemia, unspecified; E11.9 Type 2 diabetes mellitus without complications

== ENCOUNTER → 2025-08-05 11:42 | Outpatient (BNVA) | payer MEDICARE, OTHER, SELFPAY | PROVIDERS: PCP Internal Medicine; Visit Provider Internal Medicine | DX: I10 Essential (primary) hypertension (principal); E11.9 Type 2 diabetes mellitus without complications; E78.5 Hyperlipidemia, unspecified | CPT/HCPCS: 99212 ==